=== PATIENT | female | born 1955 | race Caucasian/White ===

== ENCOUNTER 2019-04-01 12:05 | Emergency (ER) | payer OTHER, SELFPAY ==
[2019-04-01 12:14] VITALS: BP 140/76; PULSE 120; RESP 16; TEMP 37.2; O2SAT 99
--- NOTE | 2019-04-01 12:36 | ED.GENADULT ---
HPI - General Adult General Chief complaint: Upper Respiratory Infection Stated complaint: ST,bodyaches,chills Time Seen by Provider: 04/01/19 12:38 Source: patient and RN notes reviewed Mode of arrival: ambulatory Limitations: no limitations History of Present Illness HPI narrative: This is a 63 years old female presented office for evaluation of possible strep.Began last night with sore throat, and body aches. Her grandkid has strep. No treatment prior to arrival today. She smokes half a pack a day. Related Data Home Medications Medication Instructions Recorded Confirmed metformin mg 04/01/19 simvastatin mg 04/01/19 trazodone 04/01/19 Allergies Allergy/AdvReac Type Severity Reaction Status Date / Time No Known Allergies Allergy Unverified 12/11/17 11:40 Review of Systems Review of Systems: Narrative: CONSTITUTIONAL: Denies fever. Reports chills and ache EYES: Denies visual changes ENT: Reports a little sinus drainage with sore throat. Denies ears pain CARDIOVASCULAR: Denies chest pain, palpitations RESPIRATORY: Denies dyspnea, wheezing. Reports cough GASTROINTESTINAL: Denies abdominal pain, nausea, vomiting, diarrhea. GENITOURINARY: Denies urinary symptoms or discharge SKIN: Denies rash MUSCULOSKELETAL: Denies acute back pain, joint pain, or myalgia. NEUROLOGIC: Denies numbness, or focal weakness. [facility] Past Medical History Medical History (Updated 04/01/19 @ 12:51 by STAN Shin) HLD (hyperlipidemia) HTN (hypertension) Type 2 diabetes mellitus without complication Vitamin D deficiency Family History Family History Mother Family history of diabetes mellitus in first degree relative Father Family history of diabetes mellitus in first degree relative Family history of coronary artery disease Social History Social History Smoking status: Current every day smoker Alcohol intake: never Comments At time of signature, I agree with nursing past medical, surgical, social and family history. There is no relevant family history pertinent to the presenting complaint. Exam Narrative: Exam Narrative: GENERAL: This is a well-nourished, well-developed patient, in no apparent distress. EARS: External ears normal, auditory canals clear and without drainage, TMs normal without perforation. Hearing grossly intact. NOSE: External nose normal with no obvious nasal discharge, nares without redness, no rhinorrhea. THROAT: Mucous membranes moist, posterior pharynx clear. NECK: Neck supple, non-tender without lymphadenopathy, masses or thyromegaly. CARDIOVASCULAR: Regular rate and rhythm without murmurs, gallops, or rubs. RESPIRATORY: Clear to auscultation. Breath sounds equal bilaterally. No wheezes, rales, or rhonchi. GASTROINTESTINAL: Abdomen soft, non-tender, nondistended. Bowel sounds are active. No hepato-splenomegaly, or palpable masses. No guarding. SKIN: warm, intact with no suspicious lesions or rash, good texture and turgor. NEURO: awake, alert, and oriented to person, place and time. There were no obvious focal neurologic abnormalities. Steady gait Nadira Coma Scale Eye Opening: Spontaneous 4 [place] Coma Scale Motor: Obeys Commands 6 Nadira Coma Scale Verbal: Oriented 5 Course Vital Signs Vital signs: Vital Signs Temperature 99.0 F 04/01/19 12:14 Pulse Rate 120 H 04/01/19 12:14 Respiratory Rate 16 04/01/19 12:14 Blood Pressure 140/76 04/01/19 12:14 Pulse Oximetry 99 04/01/19 12:14 Temperature 99.0 F 04/01/19 12:14 Pulse Rate 120 H 04/01/19 12:14 Respiratory Rate 16 04/01/19 12:14 Blood Pressure 140/76 04/01/19 12:14 Pulse Oximetry 99 04/01/19 12:14 Medical Decision Making MDM Narrative Medical decision making narrative: Discharge instructions reviewed with patient, as well as provided in writing per nursing staff. The instr
== END 2019-04-01 12:48 | disposition home or self-care (01) ==
PROVIDERS: Emergency Provider Nurse Practitioner; PCP Physician Assistant
DX: J02.9 Acute pharyngitis, unspecified (principal); I10 Essential (primary) hypertension; E78.5 Hyperlipidemia, unspecified; E11.9 Type 2 diabetes mellitus without complications; F17.200 Nicotine dependence, unspecified, uncomplicated
CPT/HCPCS: 87081; 87880; 99213; G0463

== ENCOUNTER → 2019-04-07 14:59 | Outpatient (CLI) | payer OTHER, SELFPAY ==
--- NOTE | ~2019-04-07 | MM_ITS ---
EXAMINATION: MM screening sukh BI w sid HISTORY: Screening mammogram TECHNIQUE: Craniocaudal and mediolateral oblique 3-D tomosynthesis images were obtained and synthetic 2-D images were generated. CAD analysis was submitted and interpreted. COMPARISON: 02/02/2017, 04/11/2014 bilateral digital screening mammogram examinations BREAST PARENCHYMAL COMPOSITION: The breasts are almost entirely fatty... FINDINGS: There is no evidence of suspicious mass, calcification, or architectural distortion to sugg est malignancy in either breast. There has been no suspicious interval change. IMPRESSION: 1. No mammographic evidence of malignancy. 2. Recommend routine screening mammography in one year. BI-RADS Category 1: Negative Reviewed, dictated and finalized at location A. DRY AGENT
== END ==
PROVIDERS: PCP Physician Assistant; Visit Provider Physician Assistant
DX: Z12.31 Encounter for screening mammogram for malignant neoplasm of breast (principal)
CPT/HCPCS: 77063; 77067

== ENCOUNTER → 2019-11-23 10:47 | Outpatient (CLI) | payer OTHER, SELFPAY ==
--- NOTE | ~2019-11-23 | CT_ITS ---
EXAMINATION: CT abdomen pelvis wo/w con DATE: 11/23/2019 11:30 INDICATION: Generalized abdominal pain. Hematuria. TECHNIQUE: Computed tomography (CT) of the abdomen and pelvis was performed without and with intraven ous contrast using a total of 130 mL Omnipaque-350 intravenous contrast with a double-bolus technique for simultaneous opacification of the renal parenchyma and renal collecting system. Automated exposu re control and iterative reconstruction technique were employed. The dose-length product was 1689.91 mGy-cm. COMPARISON: CT abdomen 11/03/2017 FINDINGS: The visualized portions of the lung bases demonstrate mild atelectasis. No pleural effusion. The hear t size is normal. No pericardial effusion. There is a small sliding hiatal hernia. The liver is christine l. There are changes of cholecystectomy. The spleen, pancreas, adrenal glands, and left kidney are no rmal. There is a 5 mm cyst in right kidney. There is no urolithiasis. The ureters are well opacified and are normal. The bladder is normal. There is diverticulosis of the colon without evidence of diver ticulitis. There are no dilated loops of bowel. There are no pathologically enlarged lymph nodes. The re is a 2.2 cm mass of old fat necrosis in left abdomen. There is no free intraperitoneal fluid. Ther e is mild lumbar spondylosis. There are old healed left rib fractures. IMPRESSION: 1. No etiology for hematuria. 2. Small sliding hiatal hernia. Reviewed, dictated and finalized at location A.
[2019-11-23 11:06] LABS: Estimated Glomerular Filt Rate > 60
== END ==
PROVIDERS: PCP Physician Assistant; Visit Provider Physician Assistant
DX: R10.84 Generalized abdominal pain (principal); R31.9 Hematuria, unspecified; K44.9 Diaphragmatic hernia without obstruction or gangrene
CPT/HCPCS: 74178; Q9967

== ENCOUNTER → 2020-04-04 10:41 | Outpatient (CLI) | payer OTHER, SELFPAY ==
--- NOTE | ~2020-04-04 | CT_ITS ---
EXAMINATION:CT lung screening DATE: 04/04/2020 11:03 INDICATION: Personal history of tobacco dependence. Current smoker with 30 pack year history. TECHNIQUE: Computed tomography (CT) of the chest was performed without intravenous contrast. Automate d exposure control and iterative reconstruction technique were employed. The dose-length product (DLP ) was 123.78 mGy-cm. COMPARISON: Chest CT 03/28/2019 FINDINGS: There is mild emphysema. There is mild atelectasis in the lower lobes, right middle lobe, a nd lingula. Again seen is a 4 mm nodule in right middle lobe. No pleural effusion. The heart size is normal. There are coronary artery calcifications. No pericardial effusion. There are changes of naga cystectomy. Again seen is an 11 mm mass in left adrenal gland measuring low-attenuation, consistent w ith adenoma. There is mild thoracic spondylosis. IMPRESSION: 1. Lung-RADS category 2: Benign appearance or behavior. Continue annual screening with noncontrast lo w-dose chest CT in 12 months. Reviewed, dictated and finalized at location A. LPN CNA IMPRESSION: 1. Lung-RADS category 2: Benign appearance or behavior. Continue annual screeni ng with noncontrast low-dose chest CT in 12 months.
== END ==
PROVIDERS: PCP Physician Assistant; Visit Provider Physician Assistant
DX: F17.210 Nicotine dependence, cigarettes, uncomplicated (principal)
CPT/HCPCS: 71271

== ENCOUNTER → 2020-06-25 15:50 | Outpatient (CLI) | payer OTHER, SELFPAY ==
--- NOTE | ~2020-06-25 | MM_ITS ---
EXAMINATION: MM screening sukh BI w sid HISTORY: Screening mammogram TECHNIQUE: Craniocaudal and mediolateral oblique 3-D tomosynthesis images were obtained and synthetic 2-D images were generated. CAD analysis was submitted and interpreted. COMPARISON: 04/07/2019, 02/02/2017, 04/11/2014 bilateral digital screening mammogram examinations BREAST PARENCHYMAL COMPOSITION: The breasts are almost entirely fatty. FINDINGS: Stable approximately 6.5 mm circumscribed upper outer quadrant of right intramammary lymph node. There is no evidence of suspicious mass, calcification, or architectural distortion to suggest malignancy in either breast. There has been no suspicious interval change. IMPRESSION: 1. No mammographic evidence of malignancy. 2. Recommend routine screening mammography in one year. BI-RADS Category 2: Benign finding(s). Reviewed, dictated and finalized at location A.
== END ==
PROVIDERS: PCP Physician Assistant; Visit Provider Physician Assistant
DX: Z12.31 Encounter for screening mammogram for malignant neoplasm of breast (principal)
CPT/HCPCS: 77063; 77067

== ENCOUNTER 2020-09-14 10:12 | Emergency (ER) | payer OTHER, SELFPAY ==
--- NOTE | ~2020-09-14 | XR_ITS ---
EXAMINATION: XR chest 2V DATE: 09/14/2020 10:38 INDICATION: Productive cough TECHNIQUE: PA and lateral views of the chest are obtained. COMPARISON: 12/11/2017 FINDINGS: The lungs are free of acute opacities. There is atelectasis of the lingula. There is no ple ural effusion or pneumothorax. The cardiomediastinal silhouette is normal. There is mild thoracic spo ndylosis. Cholecystectomy clips are noted. IMPRESSION: 1. No acute cardiopulmonary abnormality. Reviewed, dictated and finalized at location A.
[2020-09-14 10:20] VITALS: BP 140/58; PULSE 119; RESP 16; TEMP 37.1; O2SAT 96
--- NOTE | 2020-09-14 10:20 | ED.URI ---
HPI - URI/Sore Throat General Chief Complaint: Upper Respiratory Infection Stated Complaint: congestion/cough Time Seen by Provider: 09/14/20 10:20 Source: patient and RN notes reviewed Mode of arrival: ambulatory Limitations: no limitations History of Present Illness HPI Narrative: 64-year-old female presents to the [facility] with complaints of cough, congestion for the last 2 to 3 days. Patient was concerned because she has hematemesis he had a family vacation on Wednesday. Patient is a smoker. Denies chest pain. Has chest wall discomfort when coughing. Related Data Home Medications Medication Instructions Recorded Confirmed metformin mg 04/01/19 simvastatin mg 04/01/19 trazodone 04/01/19 Allergies Allergy/AdvReac Type Severity Reaction Status Date / Time No Known Allergies Allergy Unverified 12/11/17 11:40 Review of Systems Review of Systems: All systems reviewed & are unremarkable except as noted in HPI and below Constitutional: Constitutional: Reports no additional constitutional complaints, Denies chills and Denies fever(s) Eyes: Eyes: Reports no additional eye complaints ENT: Reports system reviewed and no additional complaints, except as documented Cardiovascular: Cardiovascular: Reports no additional cardiovascular complaints, Denies chest pain, Denies rapid heart rate, Denies radiating jaw, neck or arm pain and Denies slow heart rate Respiratory: Respiratory: Reports as per HPI, Reports chest congestion, Reports cough and Denies dyspnea Gastrointestinal: Gastrointestinal: Reports no additional gastrointestinal complaints Musculoskeletal: Musculoskeletal: Reports no additional musculoskeletal complaints Integumentary/Breasts: Skin/Breast: Reports system reviewed and no additional complaints, except as docu, Denies erythema and Denies rash Neurologic: Reports system reviewed and no additional complaints, except as documented Psychiatric: Psychiatric: Reports no additional psychiatric complaints Allergic/Immunologic: Allergic/Immunologic: Reports no additional allergic/immunologic complaints [facility] Past Medical History Medical History HLD (hyperlipidemia) HTN (hypertension) Type 2 diabetes mellitus without complication Vitamin D deficiency Family History Family History Mother Family history of diabetes mellitus in first degree relative Father Family history of diabetes mellitus in first degree relative Family history of coronary artery disease Social History Social History Smoking status: Current every day smoker Alcohol intake: never Comments At the time of my signature, I reviewed and agree with the nursing past medical, surgical, social, and family history. There is no relevant family history pertinent to the patient complaint. Exam Const: General: no acute distress and alert Nutritional Appearance: well nourished Orientation/consciousness: patient oriented x3 Limitations: no limitations HENMT: Head: normal to inspection Ears: external ears normal, TM's normal bilaterally and EAC's normal Eyes: Conjunctivae: conjunctivae normal Pupils: Equal, round and reactive pupils present Neck: Neck: normal visual inspection, no lymphadenopathy and no meningeal signs Chest: Chest palpation & inspection: normal inspection of the chest Resp: Effort & Inspection: normal respiratory effort and no use of accessory muscles Auscultation: rhonchi left lower and diminished lung sounds on the right in the lower lung graf Cardio: Rate: regular rate Rhythm: regular rhythm GI: GI Palp: Yes Soft to palpation and No Tenderness to palpation present (GI) : General: Yes no CVA tenderness Back/Spine/Pelvis: Back: no CVA tenderness Skin: General skin exam: normal color Rashes: no rashes Wounds: no wounds Neuro: General: patient oriented x
[2020-09-16 20:19] LABS: SARS-CoV-2 RNA PCR Negative
== END 2020-09-14 11:06 | disposition home or self-care (01) ==
PROVIDERS: Emergency Provider Nurse Practitioner; PCP Physician Assistant
DX: J40 Bronchitis, not specified as acute or chronic (principal); Z20.822 Contact with and (suspected) exposure to COVID-19; E78.5 Hyperlipidemia, unspecified; I10 Essential (primary) hypertension; E11.9 Type 2 diabetes mellitus without complications
CPT/HCPCS: 71046; 99213; C9803; G0463; U0003; U0005

== ENCOUNTER → 2020-12-18 09:18 | Outpatient (CLI) | payer MEDICARE, OTHER, SELFPAY ==
--- NOTE | ~2020-12-18 | XR_ITS ---
XR shoulder LT min 2V 12/18/2020 09:31 Indication: Left shoulder pain Procedure: 4 views left shoulder Comparison: No prior studies for comparison. Findings: There is mild osteoarthritis of the left glenohumeral joint. No fracture, subluxation or di slocation. No significant soft tissue abnormality. No foreign body. Impression: 1: Mild left glenohumeral joint osteoarthritis. Reviewed, dictated and finalized at location B. Impression: 1: Mild left glenohumeral joint osteoarthritis.
== END ==
PROVIDERS: PCP Physician Assistant; Visit Provider Physician Assistant
DX: M19.012 Primary osteoarthritis, left shoulder (principal)
CPT/HCPCS: 73030

== ENCOUNTER 2021-05-11 10:05 | Emergency (ER) | payer MEDICARE, OTHER, SELFPAY ==
--- NOTE | ~2021-05-11 | XR_ITS ---
EXAMINATION: XR chest 2V DATE: 05/11/2021 10:39 INDICATION: Cough. TECHNIQUE: Frontal and lateral views of the chest were obtained. COMPARISON: Chest 2 views 09/14/2020, chest CT 04/04/2020 FINDINGS: There is mild atelectasis in lingula. No pleural effusion or pneumothorax. The heart size i s normal. Surgical clips in the right upper quadrant are likely from cholecystectomy. IMPRESSION: 1. Mild atelectasis in lingula. Reviewed, dictated and finalized at location A.
[2021-05-11 10:13] VITALS: BP 133/73; PULSE 118; RESP 16; TEMP 36.9; O2SAT 97
[2021-05-11 10:15] VITALS: PULSE 110; RESP 16; O2SAT 98
--- NOTE | 2021-05-11 10:23 | ECG_ITS ---
Measurements Intervals [place] Rate: 110 P: 65 AL: 151 QRS: 51 QRSD: 85 T: 64 QT: 316 QTc: 428 Interpretive Statements SINUS TACHYCARDIA NONSPECIFIC T-WAVE ABNORMALITY ABNORMAL RHYTHM ECG NO PREVIOUS ECG AVAILABLE FOR COMPARISON Electronically Signed On 05-11-2021 16:50:31 CDT by Ashtyn Abdalla M.D.
--- NOTE | 2021-05-11 10:31 | ED.GENADULT ---
HPI - General Adult General Chief complaint: Upper Respiratory Infection Stated complaint: uri Source: patient Mode of arrival: ambulatory Limitations: no limitations History of Present Illness HPI narrative: Patient presents for evaluation of cough for the last 3 days. Cough is primarily nonproductive. She denies any fever, chills, nausea, vomiting, diarrhea, body aches, shortness of breath. She does have some chest tightness but denies chest pain per se. She smokes 1/2 ppd. No recent sick contacts to her knowledge. She did have COVID back in March of this year despite receiving both doses of her COVID vaccination and her booster. She did receive a flu shot this year. Related Data Home Medications Medication Instructions Recorded Confirmed metformin mg 04/01/19 simvastatin mg 04/01/19 trazodone 04/01/19 Allergies Allergy/AdvReac Type Severity Reaction Status Date / Time No Known Allergies Allergy Unverified 12/11/17 11:40 Review of Systems Review of Systems: CONSTITUTIONAL: Denies fever, chills, or sweats. EYES: Denies visual changes, redness, or discharge. ENT: Reports nasal congestion. Denies rhinorrhea, sore throat, or otalgia. CARDIOVASCULAR: Reports chest tightness. Denies chest pain, palpitations, or edema. RESPIRATORY: Reports cough and chest congestion. Denies SOB GASTROINTESTINAL: Denies abdominal pain, nausea, vomiting, or diarrhea. GENITOURINARY: Denies dysuria or hematuria. SKIN: Denies rash or itching. MUSCULOSKELETAL: Denies back pain, joint pain, or myalgia. NEUROLOGIC: Denies headache, numbness, dizziness, or weakness. PSYCHIATRIC: Denies anxiety or depression. [facility] Past Medical History Medical History (Updated 05/11/21 @ 11:17 by Doni Jordan, STAN, ) HLD (hyperlipidemia) HTN (hypertension) Type 2 diabetes mellitus without complication Vitamin D deficiency Surgical History Surgical History History of cholecystectomy History of hysterectomy Family History Family History Mother Family history of diabetes mellitus in first degree relative Father Family history of diabetes mellitus in first degree relative Family history of coronary artery disease Social History Social History Smoking packs per day: 0.5 Smoking cigarettes per day: 10.0 Smoking status: Current every day smoker Alcohol intake: never Substance use: never Living arrangements: with family Gender identity (if verbalized by the patient): Female Spiritual care concerns: No Exam Narrative: GENERAL: Well-appearing, well-nourished, and in no acute distress. HEAD: Normocephalic, atraumatic. EYES: PERRLA and EOMI. ENT: Nares clear, no rhinorrhea or epistaxis. Mucous membranes moist. Oropharynx without tonsillar hypertrophy exudate or other lesions. Bilateral TMs pearly bryan nonbulging NECK: Supple. No adenopathy or masses. No carotid bruits or JVD CHEST: Rales and wheezing noted in bilateral lung graf posteriorly. HEART: Regular rate and rhythm. No murmur heard. Normal peripheral pulses. ABDOMEN: Soft, nontender, nondistended, normal active bowel sounds. EXTREMITIES: Normal range of motion. No edema. SKIN: Warm, dry, no rash. NEURO: No focal deficits. Alert and oriented x3. PSYCH: Normal mood and affect. Course Course Emergency Course: This is a 65-year-old female who presented with cough with a history of smoking and recent Covid infection. She was tachycardic on arrival. She was given a neb treatment and steroids. EKG showed sinus tachycardia. Chest x-ray with no infiltrate noted. Given tachycardia with history of smoking and recent Covid, there would be concern for PE. I cannot definitively rule this out using PERC criteria. Informed pt that it would be recommended to go to ER for further evaluation
[2021-05-11] MEDS: ALBUTEROL SULFATE NEB 2.5 MG/3 ML INH INHALATION (10:38)
[2021-05-11] MEDS: methylPREDNISolone SOD SUCC 125 MG VIAL IM (10:39)
[2021-05-11] MEDS: IPRATROPIUM BR 0.02% INH SOLN 0.5 MG/2.5 ML VIAL INHALATION (10:39)
[2021-05-11 11:15] VITALS: PULSE 122; RESP 16; O2SAT 97
== END 2021-05-11 11:15 | disposition short-term general hospital (02) ==
PROVIDERS: Emergency Provider Nurse Practitioner; PCP Physician Assistant
DX: R05.9 Cough, unspecified (principal); R00.0 Tachycardia, unspecified; F17.210 Nicotine dependence, cigarettes, uncomplicated; Z86.16 Personal history of COVID-19; E78.5 Hyperlipidemia, unspecified; I10 Essential (primary) hypertension; E11.9 Type 2 diabetes mellitus without complications
CPT/HCPCS: 71046; 87804; 93005; 94640; 96372; 99213; G0463; J2930

== ENCOUNTER 2021-05-11 11:40 | Emergency (ER) | payer MEDICARE, OTHER, SELFPAY ==
[2021-05-11 11:42] VITALS: BP 151/72; PULSE 121; RESP 14; TEMP 36.7; O2SAT 100
[2021-05-11 12:31] VITALS: RESP 18
--- NOTE | 2021-05-11 12:32 | PC.NURSE ---
Pt states she was sent by [facility] for c/o tachycardia. Pt initially presented to urgent care with c/o congestion and sinus infection. Pt denies s/s at this time.
[2021-05-11 12:46] VITALS: BP 157/68; PULSE 117; RESP 18; O2SAT 99
--- NOTE | 2021-05-11 12:55 | ED.URI ---
HPI - URI/Sore Throat General Chief Complaint: Upper Respiratory Infection Stated Complaint: cough/r/o pneumonia Time Seen by Provider: 05/11/21 12:31 Source: patient History of Present Illness HPI Narrative: Patient was referred from an urgent care for further evaluation. Patient reports has had congestion for the past couple days was concerned that might develop into pneumonia went to an urgent care. They did a chest x-ray and told her everything was clear on the chest x-ray she does have a history of smoking so they gave her albuterol and Solu-Medrol. Patient noted to be tachycardic throughout urgent care stay so she referred the ER for evaluation. Patient is understanding of the referral was there was concern for blood clots as she recently had a Covid infection and March. Patient is denying any chest pain or shortness of breath on my evaluate she denies any fevers or hemoptysis denies prior history of blood clots. Related Data Home Medications Medication Instructions Recorded Confirmed metformin mg 04/01/19 simvastatin mg 04/01/19 trazodone 04/01/19 Allergies Allergy/AdvReac Type Severity Reaction Status Date / Time No Known Allergies Allergy Unverified 12/11/17 11:40 Review of Systems Review of Systems: CONSTITUTIONAL: Denies fever, chills, or sweats. EYES: Denies visual changes, redness, or discharge. ENT: Denies sore throat, or otalgia. CARDIOVASCULAR: Denies chest pain, palpitations, or edema. RESPIRATORY: Denies dyspnea. GASTROINTESTINAL: Denies abdominal pain, nausea, vomiting, or diarrhea. GENITOURINARY: Denies dysuria or hematuria. SKIN: Denies rash or itching. MUSCULOSKELETAL: Denies back pain, joint pain, or myalgia. NEUROLOGIC: Denies headache, numbness, dizziness, or weakness. PSYCHIATRIC: Denies anxiety or depression. [facility] Past Medical History Medical History HLD (hyperlipidemia) HTN (hypertension) Type 2 diabetes mellitus without complication Vitamin D deficiency Surgical History Surgical History History of cholecystectomy History of hysterectomy Family History Family History Mother Family history of diabetes mellitus in first degree relative Father Family history of diabetes mellitus in first degree relative Family history of coronary artery disease Social History Social History Smoking packs per day: 0.5 Smoking cigarettes per day: 10.0 Smoking status: Current every day smoker Alcohol intake: never Substance use: never Gender identity (if verbalized by the patient): Female Spiritual care concerns: No Exam Narrative: GENERAL: Well-appearing, well-nourished, and in no acute distress. HEAD: Normocephalic, atraumatic. EYES: PERRLA and EOMI. ENT: Nares clear, no rhinorrhea or epistaxis. Mucous membranes moist. NECK: Supple. No masses. No JVD CHEST: Clear to auscultation. No respiratory distress. No wheezes rales or rhonchi HEART: Regular tachycardia. No murmur heard. Normal peripheral pulses. ABDOMEN: Soft, nontender, nondistended, normal active bowel sounds. EXTREMITIES: Normal range of motion. No edema. SKIN: Warm, dry, no rash. NEURO: No focal deficits. Alert and oriented x3. PSYCH: Normal mood and affect. Course Reevaluation(s) Reevaluation #1: Patient is resting comfortably results and plan reviewed with patient. Patient is comfortable outpatient plan. Date: 05/11/21 Time: 13:57 Vital Signs Vital signs: Vital Signs Temperature 36.7 C 05/11/21 11:42 Pulse Rate 121 H 05/11/21 11:42 Respiratory Rate 14 05/11/21 11:42 Blood Pressure 151/72 H 05/11/21 11:42 Pulse Oximetry 100 05/11/21 11:42 Temperature 36.7 C 05/11/21 11:42 Pulse Rate 114 H 05/11/21 14:11 Respiratory Rate 18 05/11/21 14:11 Blood Press
[2021-05-11 13:02] LABS: Basophils Absolute Auto 0.1 K/mm3 (0.0-0.1); Basophils Percent Auto 0.7 % (0.2-1.2); Eosinophils Absolute Auto 0.1 K/mm3 (0-0.3); Eosinophils Percent Auto 1.2 % (0-4.4); Hematocrit 46.1 % (37.0-47.0); Hemoglobin 14.5 g/dL (12.0-15.0); Immature Granulocyte Absolute 0.02 K/mm3 (0.00-0.031); Immature Granulocyte Percent A 0.3 % (0-0.5); Lymphocytes Absolute Auto 0.83 K/mm3 (0.9-3.2); Lymphocytes Percent Auto 11.1 % (18.3-44.2); Mean Corpuscular HGB Conc 31.5 g/dl (32-36); Mean Corpuscular Hemoglobin 28.7 pg (26-34); Mean Corpuscular Volume 91.3 fl (80-100); Mean Platelet Volume 10.5 fl (7.4-10.4); Monocytes Absolute Auto 0.2 K/mm3 (0.1-0.6); Monocytes Percent Auto 2.5 % (2.6-8.5); Neutrophils Absolute Auto 6.3 K/mm3 (1.3-6.7); Neutrophils Percent Auto 84.2 % (45.5-73.1); Platelet Count Result 208 k/mm3 (150-375); Red Blood Count 5.05 M/mm3 (4.2-5.4); Red Cell Distribution Width 14.2 % (11.5-14.5); White Blood Count 7.5 K/mm3 (4.5-10.0)
[2021-05-11 13:15] LABS: Alanine Aminotransferase 18 U/L (4-35); Albumin Level 4.5 g/dL (3.5-5.1); Alkaline Phosphatase 120 U/L (38-126); Anion Gap 7 mmol/L (8-16); Aspartate Amino Transferase 22 U/L (14-36); Bilirubin,Total 0.4 mg/dL (0.2-1.3); Blood Urea Nitrogen 9 mg/dL (7-17); Calcium 9.4 mg/dL (8.4-10.2); Carbon Dioxide 26 mmol/L (22-30); Chloride 107 mmol/L (98-107); Estimated Glomerular Filt Rate > 60; Glucose 139 mg/dL (65-110); Potassium 4.1 mmol/L (3.4-5.0); Sodium 140 mmol/L (137-145)
[2021-05-11 13:21] LABS: D Dimer < 0.27 ug/mL (<0.48)
[2021-05-11 13:31] VITALS: BP 157/75; PULSE 116; RESP 18; O2SAT 94
[2021-05-11 14:04] VITALS: BP 138/86; PULSE 114; RESP 18; O2SAT 99
[2021-05-11 14:11] VITALS: PULSE 114; RESP 18; O2SAT 98
== END 2021-05-11 14:11 | disposition home or self-care (01) ==
PROVIDERS: Emergency Provider Emergency Medicine; PCP Physician Assistant
DX: R09.81 Nasal congestion (principal); Z79.84 Long term (current) use of oral hypoglycemic drugs; E78.5 Hyperlipidemia, unspecified; I10 Essential (primary) hypertension; E11.9 Type 2 diabetes mellitus without complications; E55.9 Vitamin D deficiency, unspecified; F17.210 Nicotine dependence, cigarettes, uncomplicated
CPT/HCPCS: 36415; 71046; 80053; 85025; 85380; 87804; 93005; 94640; 96372; 99283; J2930

== ENCOUNTER → 2021-06-23 11:30 | Outpatient (CLI) | payer MEDICARE, OTHER, SELFPAY ==
--- NOTE | ~2021-06-23 | CT_ITS ---
EXAMINATION: CT lung screening DATE: 06/23/2021 11:44 INDICATION: Cigerette smoker . Lung cancer screening. TECHNIQUE: Computed tomography (CT) of the chest was performed without intravenous contrast. Addition al 3D reconstructions utilizing coronal maximum intensity projection (MIP) were performed. Automated exposure control and iterative reconstruction technique were employed. The dose-length product was 13 4.91 mGy-cm. COMPARISON: None FINDINGS: No interval change in a 3 mm right middle lobe nodule and a couple 2 mm nodules in the left lower lob e. No new or enlarging pulmonary nodules identified. Mild discoid atelectasis in the right middle lob e and lingula. No pneumonia, pulmonary edema or pleural effusion. Heart size is normal. No pericardia l effusion. Thoracic aorta is normal in caliber. No pathologically enlarged thoracic lymphadenopathy. Cholecystectomy clips the gallbladder fossa. Mild thoracic spondylosis. IMPRESSION: 1. Lung-RADS category 2: Benign appearance or behavior. Continue annual screening with noncontrast lo w-dose chest CT in 12 months. Reviewed, dictated and finalized at location B. IMPRESSION: 1. Lung-RADS category 2: Benign appearance or behavior. Continue annual screeni ng with noncontrast low-dose chest CT in 12 months.
== END ==
PROVIDERS: PCP Physician Assistant; Visit Provider Physician Assistant
DX: F17.210 Nicotine dependence, cigarettes, uncomplicated (principal)
CPT/HCPCS: 71271

== ENCOUNTER → 2021-08-13 12:37 | Outpatient (CLI) | payer MEDICARE, OTHER, SELFPAY ==
--- NOTE | ~2021-08-13 | MM_ITS ---
EXAMINATION: MM screening sukh BI w sid HISTORY: Screening TECHNIQUE: Craniocaudal and mediolateral oblique 3-D tomosynthesis images were obtained and synthetic 2-D images were generated. CAD analysis was submitted and interpreted. COMPARISON: Comparison to multiple prior studies sequentially, with oldest reviewed study dated 04/11. BREAST PARENCHYMAL COMPOSITION: There are scattered areas of fibroglandular density. FINDINGS: There is no evidence of suspicious mass, calcification, or architectural distortion to sugg est malignancy in either breast. There has been no suspicious interval change. IMPRESSION: 1. No mammographic evidence of malignancy. 2. Recommend routine screening mammography in one year. BI-RADS Category 1: Negative Reviewed, dictated and finalized at location D.
== END ==
PROVIDERS: PCP Physician Assistant; Visit Provider Physician Assistant
DX: Z12.31 Encounter for screening mammogram for malignant neoplasm of breast (principal)
CPT/HCPCS: 77063; 77067

== ENCOUNTER 2021-12-20 10:55 | Emergency (ER) | payer MEDICARE, SELFPAY ==
[2021-12-20 11:22] VITALS: BP 136/77; PULSE 100; RESP 16; TEMP 36.9; O2SAT 99
--- NOTE | 2021-12-20 12:30 | ED.GENADULT ---
HPI - General Adult General Chief complaint: Upper Respiratory Infection Stated complaint: cough/sore throat Time Seen by Provider: 12/20/21 12:30 Source: patient Mode of arrival: ambulatory Limitations: no limitations History of Present Illness HPI narrative: 65-year-old female patient presents to the [facility] with complaints of a sore throat and a cough that started yesterday. Patient states her grandson did test positive for strep and she has been around him as well as drinking after him recently. Patient denies any fevers, body aches or chills. Patient states that she has not yet gotten her flu vaccine this year but is fully vaccinated against COVID. Denies any chest pain, shortness of breath. Denies any abdominal pain, nausea, vomiting or diarrhea. Related Data Home Medications Medication Instructions Recorded Confirmed metformin 1,000 mg tablet mg 04/01/19 simvastatin 40 mg tablet mg 04/01/19 trazodone 50 mg tablet 04/01/19 Allergies Allergy/AdvReac Type Severity Reaction Status Date / Time No Known Allergies Allergy Verified 12/20/21 11:25 Review of Systems Review of Systems: CONSTITUTIONAL: Denies fever, chills, or sweats. EYES: Denies visual changes, redness, or discharge. ENT: Denies rhinorrhea, congestion, sore throat, or otalgia. CARDIOVASCULAR: Denies chest pain, palpitations, or edema. RESPIRATORY: Denies cough or dyspnea. GASTROINTESTINAL: Denies abdominal pain, nausea, vomiting, or diarrhea. GENITOURINARY: Denies dysuria or hematuria. SKIN: Denies rash or itching. MUSCULOSKELETAL: Denies back pain, joint pain, or myalgia. NEUROLOGIC: Denies headache, numbness, or weakness. PSYCHIATRIC: Denies anxiety or depression. [facility] Past Medical History Medical History HLD (hyperlipidemia) HTN (hypertension) Type 2 diabetes mellitus without complication Vitamin D deficiency Surgical History Surgical History History of cholecystectomy History of hysterectomy Family History Family History Mother Family history of diabetes mellitus in first degree relative Father Family history of diabetes mellitus in first degree relative Family history of coronary artery disease Social History Social History Smoking packs per day: 0.5 Smoking cigarettes per day: 10.0 Smoking status: Current every day smoker Alcohol intake: never Substance use: never Gender identity (if verbalized by the patient): Female Spiritual care concerns: No Comments At the time of my signature I agree with nursing past medical history, surgical, social, and family history. There is no relevant family history pertinent to the presenting complaint. Exam Narrative: GENERAL: Well-appearing, well-nourished, and in no acute distress. HEAD: Normocephalic, atraumatic. EYES: PERRLA and EOMI. ENT: Nares with erythema and edema noted bilaterally, no rhinorrhea or epistaxis. Mucous membranes moist. Posterior pharynx with no erythema, tonsillar lodgment, exudates or lesions present. Bilateral TMs are clear with no erythema or foreign bodies to the canal. NECK: Supple. No lymphadenopathy CHEST: Clear to auscultation. No respiratory distress. HEART: Regular rate and rhythm. No murmur heard. Normal peripheral pulses. ABDOMEN: Soft, nontender, nondistended, normal active bowel sounds. EXTREMITIES: Normal range of motion. No edema. SKIN: Warm, dry, no rash. NEURO: No focal deficits. Alert and oriented x3. Course Course Level of Care: Express Care Visit Reevaluation(s) Reevaluation #1: Reevaluated patient notify her that she is negative today for COVID and strep and flu. Discussed with patient that she can use [id number] medications to help with her symptoms as well as warm salt water gargles and hot te
--- NOTE | 2021-12-20 12:48 | PC.NURSE ---
at 1220 was updated on xpc status.
== END 2021-12-20 13:07 | disposition home or self-care (01) ==
PROVIDERS: Emergency Provider Nurse Practitioner Family; PCP Physician Assistant
DX: J02.8 Acute pharyngitis due to other specified organisms (principal); Z20.822 Contact with and (suspected) exposure to COVID-19; F17.210 Nicotine dependence, cigarettes, uncomplicated; E78.5 Hyperlipidemia, unspecified; I10 Essential (primary) hypertension; E11.9 Type 2 diabetes mellitus without complications
CPT/HCPCS: 87081; 87426; 87804; 87880; 99213; C9803; G0463

== ENCOUNTER 2022-03-01 09:08 | Emergency (ER) | payer MEDICARE, SELFPAY ==
--- NOTE | 2022-03-01 09:11 | ED.URI ---
HPI - URI/Sore Throat General Chief Complaint: Upper Respiratory Infection Stated Complaint: COVID + Time Seen by Provider: 03/01/22 09:19 Source: patient, RN notes reviewed and old records reviewed Mode of arrival: ambulatory Limitations: no limitations History of Present Illness HPI Narrative: 66-year-old female presents to the [facility] wanting treatment for COVID-19, tested positive yesterday. Patient reports cough, congestion. Has taken Tylenol and Coricidin. Denies fevers, chest pain, abdominal pain. No nausea vomiting or diarrhea. Requesting Paxlovid. Patient states that her tested positive on last , summer, for COVID-19. Related Data Home Medications Medication Instructions Recorded Confirmed metformin 1,000 mg tablet 1,000 mg PO DIRECTED 04/01/19 03/01/22 simvastatin 40 mg tablet 40 mg PO DAILY 04/01/19 03/01/22 trazodone 50 mg tablet 50 mg PO DAILY 04/01/19 03/01/22 Allergies Allergy/AdvReac Type Severity Reaction Status Date / Time No Known Allergies Allergy Verified 03/01/22 09:23 Review of Systems Review of Systems: All systems reviewed & are unremarkable except as noted in HPI and below Constitutional: Constitutional: Reports as per HPI and Reports body ache(s) ENT: Reports as per HPI and Reports nasal congestion Cardiovascular: Cardiovascular: Reports no additional cardiovascular complaints, Denies chest pain and Denies dyspnea Respiratory: Respiratory: Reports as per HPI, Denies chest congestion, Reports cough, Denies dyspnea and Denies wheezing Gastrointestinal: Gastrointestinal: Reports no additional gastrointestinal complaints, Denies abdominal pain, Denies nausea and Denies vomiting Musculoskeletal: Musculoskeletal: Reports no additional musculoskeletal complaints Integumentary/Breasts: Skin/Breast: Reports system reviewed and no additional complaints, except as docu Neurologic: Reports system reviewed and no additional complaints, except as documented Psychiatric: Psychiatric: Reports no additional psychiatric complaints Allergic/Immunologic: Allergic/Immunologic: Reports no additional allergic/immunologic complaints PMFSH Past Medical History Medical History HLD (hyperlipidemia) HTN (hypertension) Type 2 diabetes mellitus without complication Vitamin D deficiency Surgical History Surgical History History of cholecystectomy History of hysterectomy Family History Family History Mother Family history of diabetes mellitus in first degree relative Father Family history of diabetes mellitus in first degree relative Family history of coronary artery disease Social History Social History Smoking packs per day: 0.5 Smoking cigarettes per day: 10.0 Smoking status: Current every day smoker Alcohol intake: never Substance use: never Gender identity (if verbalized by the patient): Female Spiritual care concerns: No Comments At the time of my signature, I reviewed and agree with the nursing past medical, surgical, social, and family history. There is no relevant family history pertinent to the patient complaint. Exam Const: General: cooperative, healthy appearing, comfortable, no acute distress, well developed, alert and well nourished Nutritional Appearance: well nourished Orientation/consciousness: patient oriented x3 Limitations: no limitations HENMT: Head: normal to inspection Ears: hearing grossly normal bilaterally and external ears normal Face/Nose/Sinus: Normal external nose present, Normal nares present, Normal nasal mucous membranes and turbinates present and normal facial exam Face and sinus: normal facial exam Mouth: Yes Normal oral and palatal mucosa present, Yes lip normal and Yes moist mucous membrane
[2022-03-01 09:19] VITALS: BP 142/81; PULSE 119; RESP 16; TEMP 36.9; O2SAT 96
[2022-03-01 09:29] VITALS: BP 142/81; PULSE 119; RESP 16; TEMP 36.9; O2SAT 96
== END 2022-03-01 09:58 | disposition home or self-care (01) ==
PROVIDERS: Emergency Provider Nurse Practitioner; PCP Physician Assistant
DX: U07.1 COVID-19 (principal); F17.210 Nicotine dependence, cigarettes, uncomplicated; E78.5 Hyperlipidemia, unspecified; I10 Essential (primary) hypertension; E11.9 Type 2 diabetes mellitus without complications; Z79.84 Long term (current) use of oral hypoglycemic drugs
CPT/HCPCS: 87426; 99213; C9803; G0463

== ENCOUNTER 2022-07-27 10:10 | Emergency (ER) | payer MEDICARE, OTHER, SELFPAY ==
--- NOTE | ~2022-07-27 | XR_ITS ---
EXAMINATION: XR chest 2V DATE: 07/27/2022 10:39 INDICATION: Cough. TECHNIQUE: Frontal and lateral views of the chest were obtained. COMPARISON: Chest 2 views 05/11/2021, chest CT 06/23/2021 FINDINGS: There is mild atelectasis in the lower lung zones. No pleural effusion or pneumothorax. The heart size is normal. Surgical clips in the right upper quadrant are likely from cholecystectomy. IMPRESSION: 1. Mild atelectasis in the lower lung zones. Reviewed, dictated and finalized at location A.
[2022-07-27 10:18] VITALS: BP 150/84; PULSE 110; RESP 12; TEMP 36.6; O2SAT 97
--- NOTE | 2022-07-27 10:19 | ED.URI ---
HPI - URI/Sore Throat General Chief Complaint: Upper Respiratory Infection Stated Complaint: Sinus/Cough Time Seen by Provider: 07/27/22 10:26 Source: patient and RN notes reviewed Mode of arrival: ambulatory Limitations: no limitations History of Present Illness HPI Narrative: 66-year-old female with history diabetes and hypertension presents for complaint of sinus congestion and drainage, with productive cough of yellow sputum, for 3 days. Reports a 'rattle' in chest and rib pain with coughing. Using Astepro nasal spray for symptoms. Denies sob, wheezing, n/v/d/f/c. smokes 1/2ppd. Has taken 3 negative covid tests at home since onset. Denies sick contacts. MD elicited complaint: cough Related Data Home Medications Medication Instructions Recorded Confirmed metformin 1,000 mg tablet 1,000 mg PO DIRECTED 04/01/19 07/27/22 trazodone 50 mg tablet 50 mg PO DAILY 04/01/19 07/27/22 losartan 50 mg tablet mg 07/27/22 07/27/22 rosuvastatin 20 mg tablet mg 07/27/22 Allergies Allergy/AdvReac Type Severity Reaction Status Date / Time No Known Allergies Allergy Verified 07/27/22 10:19 Review of Systems Review of Systems: CONSTITUTIONAL: Denies malaise, chills, sweats, fever EYES: Denies visual changes, redness, or discharge ENT: Reports rhinorrhea, congestion, denies sinus pain, otalgia, sore throat CARDIOVASCULAR: Denies chest pain, palpitations, edema RESPIRATORY: Reports cough, post nasal drainage. Denies dyspnea GASTROINTESTINAL: Denies abdominal pain, nausea, vomiting, diarrhea SKIN: Denies rash or itching MUSCULOSKELETAL: Denies myalgia NEUROLOGIC: Denies headache [facility] Past Medical History Medical History HLD (hyperlipidemia) HTN (hypertension) Type 2 diabetes mellitus without complication Vitamin D deficiency Surgical History Surgical History History of cholecystectomy History of hysterectomy Family History Family History Mother Family history of diabetes mellitus in first degree relative Father Family history of diabetes mellitus in first degree relative Family history of coronary artery disease Social History Social History Smoking packs per day: 0.5 Smoking cigarettes per day: 10.0 Smoking status: Current every day smoker Alcohol intake: never Substance use: never Living arrangements: with family Gender identity (if verbalized by the patient): Female Spiritual care concerns: No Exam Narrative: GENERAL: Mildly ill-appearing, nontoxic no acute distress. HEAD: Normocephalic EYES: PERRLA, conjunctivae clear ENT: Mucous membranes moist. TMs pearly bryan with dull light reflex bilaterally; no tragal tenderness. Oropharynx erythematous without lesions or exudate, no drooling, no hoarseness, no trismus, uvula midline. NECK: Supple. No lymphadenopathy CHEST: Right lung graf with mild rhonchi. No respiratory distress, speaks in full sentences. HEART: Regular rate and rhythm. No murmur heard. SKIN: Warm, dry, no rash. NEURO: Alert and oriented x3. PSYCH: Normal mood and affect Course Course Emergency Course: Patient is aware of diagnosis, understands and agrees to treatment plan. Anticipatory guidance given. Patient agrees to follow-up as directed and is aware of reasons to seek care at the emergency department. Portions of this record may have been created with voice recognition software Level of Care: Express Care Visit Vital Signs Vital signs: Vital Signs Temperature 97.8 F 07/27/22 10:18 Pulse Rate 110 H 07/27/22 10:18 Respiratory Rate 12 07/27/22 10:18 Blood Pressure 150/84 H 07/27/22 10:18 Pulse Oximetry 97 07/27/22 10:18 Oxygen Delivery Room Air 07/27/22 10:18 Temperature 97.8 F 07/27/22 10:21 Pul
[2022-07-27 10:21] VITALS: BP 150/84; PULSE 110; RESP 12; TEMP 36.6; O2SAT 97
== END 2022-07-27 10:56 | disposition home or self-care (01) ==
PROVIDERS: Emergency Provider Nurse Practitioner Family; PCP Physician Assistant
DX: J40 Bronchitis, not specified as acute or chronic (principal); E78.5 Hyperlipidemia, unspecified; I10 Essential (primary) hypertension; E11.9 Type 2 diabetes mellitus without complications; F17.210 Nicotine dependence, cigarettes, uncomplicated; Z79.84 Long term (current) use of oral hypoglycemic drugs
CPT/HCPCS: 71046; 99213; G0463

== ENCOUNTER → 2022-10-16 11:15 | Outpatient (CLI) | payer MEDICARE, SELFPAY ==
--- NOTE | ~2022-10-16 | CT_ITS ---
EXAMINATION: CT lung screening DATE: 10/16/2022 11:26 INDICATION: Personal history of nicotine dependence, current smoker with 20 pack year history TECHNIQUE: Computed tomography (CT) of the chest was performed without intravenous contrast. The dose -length product (DLP) was 148.25 mGy-cm. Automated exposure control and iterative reconstruction tech [employer] were employed. COMPARISON: 06/23/2021 FINDINGS: There are scattered stable pulmonary nodules, the largest of which measures 3 mm in the rig ht middle lobe. There is mild atelectasis of the lingula and right middle lobe. There is mild emphyse ma. No pathologically enlarged thoracic lymph nodes are identified. The heart size is normal. Calcifi ed coronary artery atherosclerosis is noted. There are changes of cholecystectomy. There is mild thor acic spondylosis. IMPRESSION: 1. Lung-RADS category 2: Benign appearance or behavior. Continue annual screening with noncontrast lo w-dose chest CT in 12 months. Reviewed, dictated and finalized at location B. IMPRESSION: 1. Lung-RADS category 2: Benign appearance or behavior. Continue annual screeni ng with noncontrast low-dose chest CT in 12 months.
== END ==
PROVIDERS: PCP Physician Assistant; Visit Provider Physician Assistant
DX: Z12.2 Encounter for screening for malignant neoplasm of respiratory organs (principal); F17.210 Nicotine dependence, cigarettes, uncomplicated
CPT/HCPCS: 71271

== ENCOUNTER → 2023-01-14 15:03 | Outpatient (CLI) | payer MEDICARE, SELFPAY ==
--- NOTE | ~2023-01-14 | XR_ITS ---
EXAMINATION: XR chest 2V DATE: 01/14/2023 15:27 INDICATION: Acute cough TECHNIQUE: PA and lateral views of the chest were obtained. COMPARISON: Chest radiograph dated 08/04/[address] dated 10/16/2022 FINDINGS: Chronic mild linear discoid atelectasis/scarring at the lingula. Additional chronic mild atelectasis/ scarring in the medial right middle lobe along side a small pericardial fat pad which is better appre ciated on prior CT. No new airspace opacities, pulmonary edema, pleural effusion or pneumothorax. Hea rt size is normal. Cholecystectomy clips in right upper quadrant. chronic mild anterior wedging at T7 . IMPRESSION: 1. Unchanged mild atelectasis/scarring at the lingula and right middle lobe. No acute cardiopulmonary disease. Reviewed, dictated and finalized at location A. 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
== END ==
PROVIDERS: PCP Physician Assistant; Visit Provider Physician Assistant
DX: R05.1 Acute cough (principal); R91.8 Other nonspecific abnormal finding of lung field
CPT/HCPCS: 71046

== ENCOUNTER 2023-06-30 13:36 | Outpatient (CLI) | payer MEDICARE, SELFPAY ==
--- NOTE | ~2023-06-30 | MM_ITS ---
EXAMINATION: MM screening sukh BI w sid HISTORY: Screening TECHNIQUE: Craniocaudal and mediolateral oblique 3-D tomosynthesis images were obtained and synthetic 2-D images were generated. CAD analysis was submitted and interpreted. COMPARISON: Comparison to multiple prior studies sequentially, with oldest reviewed study dated 04/11. BREAST PARENCHYMAL COMPOSITION: There are scattered areas of fibroglandular density. FINDINGS: There is no evidence of suspicious mass, calcification, or architectural distortion to sugg est malignancy in either breast. There has been no suspicious interval change. IMPRESSION: 1. No mammographic evidence of malignancy. 2. Recommend routine screening mammography in one year. BI-RADS Category 1: Negative Reviewed, dictated and finalized at location B.
== END 2023-06-30 13:37 ==
PROVIDERS: PCP Physician Assistant; Visit Provider Physician Assistant
DX: Z12.31 Encounter for screening mammogram for malignant neoplasm of breast (principal)
CPT/HCPCS: 77063; 77067

== ENCOUNTER 2023-06-30 15:41 | Outpatient (CLI) | payer MEDICARE, SELFPAY ==
--- NOTE | ~2023-06-30 | XR_ITS ---
XR knee RT 3V DATE: 06/30/2023 15:54 INDICATION: Pain and swelling TECHNIQUE: AP, lateral, sunrise views COMPARISON: None FINDINGS: There is mild periventricular spurring of the patella. There is enthesopathy at the quadric eps tendon insertion at the superior pole of the patella. No fracture or dislocation, periosteal reaction or bone destruction. Joint spaces appear well-preserv ed. No radiopaque in particular his biomedical stenosis. IMPRESSION: Mild patellofemoral osteoarthritis Reviewed, dictated and finalized at location A.
== END 2023-06-30 15:42 ==
LOC: MICIMG 15:42
PROVIDERS: PCP Physician Assistant; Visit Provider Physician Assistant
DX: M25.461 Effusion, right knee (principal); M17.11 Unilateral primary osteoarthritis, right knee
CPT/HCPCS: 73562

== ENCOUNTER 2023-08-09 13:06 | Emergency (ER) | payer MEDICARE, SELFPAY ==
--- NOTE | 2023-08-09 13:11 | ED.URI ---
HPI - URI/Sore Throat General Chief Complaint: Upper Respiratory Infection Stated Complaint: sore throat Time Seen by Provider: 08/09/23 13:35 Source: patient and RN notes reviewed Mode of arrival: ambulatory Limitations: no limitations History of Present Illness HPI Narrative: 67-year-old female presents concern for sore throat that started today. Reports she thought she saw white spots on her throat. She denies fever, body aches, chills, sweats. She reports she took 2 Tylenol MD elicited complaint: sore throat Related Data Home Medications Medication Instructions Recorded Confirmed metformin 1,000 mg tablet 1,000 mg PO DIRECTED 04/01/19 08/09/23 trazodone 50 mg tablet 50 mg PO DAILY 04/01/19 08/09/23 losartan 50 mg tablet 50 mg PO DAILY 07/27/22 08/09/23 rosuvastatin 20 mg tablet 20 mg PO DAILY 07/27/22 08/09/23 Allergies Allergy/AdvReac Type Severity Reaction Status Date / Time No Known Allergies Allergy Verified 07/27/22 10:19 Review of Systems Review of Systems: CONSTITUTIONAL: Denies malaise, chills, sweats, or fever. EYES: Denies visual changes, redness, or discharge. ENT: Reports sore throat. CARDIOVASCULAR: Denies chest pain, palpitations, or edema. RESPIRATORY: Denies cough. Denies dyspnea. GASTROINTESTINAL: Denies abdominal pain, nausea, vomiting, diarrhea SKIN: Denies rash or itching. MUSCULOSKELETAL: Denies myalgia. NEUROLOGIC: Denies headache. All systems reviewed & are unremarkable except as noted in HPI and below PMFSH Past Medical History Medical History HLD (hyperlipidemia) HTN (hypertension) Type 2 diabetes mellitus without complication Vitamin D deficiency Surgical History Surgical History History of cholecystectomy History of hysterectomy Family History Family History Mother Family history of diabetes mellitus in first degree relative Father Family history of diabetes mellitus in first degree relative Family history of coronary artery disease Social History Social History Smoking packs per day: 0.5 Smoking cigarettes per day: 10.0 Smoking status: Current every day smoker Alcohol intake: never Substance use: never Living arrangements: with family Gender identity (if verbalized by the patient): Female Spiritual care concerns: No Comments At time of signature, agree with nursing past medical, surgical, social and family history. There is no relevant family history pertinent to the presenting complaint Exam Narrative: GENERAL: Well-appearing, well-nourished, and in no acute distress. HEAD: Normocephalic EYES: PERRLA, conjunctivae clear ENT: Nares clear, turbinates edematous and erythematous, clear discharge. Mucous membranes moist. TM pearly bryan with dull light reflex bilaterally; no tragal tenderness. Oropharynx erythematous without lesions. Tonsils not enlarged and without exudate, no drooling, no hoarseness, no trismus, uvula midline. NECK: Supple. No lymphadenopathy CHEST: Clear to auscultation, breath sounds equal. No wheezing, rhonchi, rales, or stridor. No respiratory distress, speaks in full sentences. HEART: Regular rate and rhythm. No murmur heard. SKIN: Warm, dry, no rash. NEURO: Alert and oriented x3. PSYCH: Normal mood and affect Course Course Emergency Course: Patient is aware of diagnosis, understands and agrees to treatment plan. Anticipatory guidance given. Patient agrees to follow-up as directed and is aware of reasons to seek care at the emergency department. Portions of this record may have been created with voice recognition software Level of Care: Express Care Visit Vital Signs Vital signs: Vital Signs Temperature 98.1 F 08/09/23 13:30 Pulse Rate 104 H 08/09/23 13:30 Respiratory Rate 18
[2023-08-09 13:30] VITALS: BP 122/70; PULSE 104; RESP 18; TEMP 36.7; O2SAT 98
== END 2023-08-09 13:50 | disposition home or self-care (01) ==
PROVIDERS: Emergency Provider Nurse Practitioner; PCP Physician Assistant
DX: J06.9 Acute upper respiratory infection, unspecified (principal); F17.210 Nicotine dependence, cigarettes, uncomplicated; E78.5 Hyperlipidemia, unspecified; I10 Essential (primary) hypertension; E11.9 Type 2 diabetes mellitus without complications; Z79.84 Long term (current) use of oral hypoglycemic drugs
CPT/HCPCS: 87081; 87880; 99213; G0463

== ENCOUNTER 2023-11-08 11:07 | Outpatient (CLI) | payer MEDICARE, SELFPAY ==
--- NOTE | ~2023-11-08 | CT_ITS ---
CT Scan of the Chest without Contrast: Clinical Indication: Lung cancer screening, nicotine dependence Technique: Contiguous sections were acquired throughout the chest without intravenous contrast. Dose reduction technique was used on this scan by utilizing automated exposure control and iterative recon struction technique. The dose-length product (DLP) was 111.91 mGy-cm. COMPARISON: 10/16/2022 Findings: There is no evidence of any significant mediastinal, hilar or axillary lymphadenopathy. The mediastin al soft tissues appear normal. There is no evidence of pleural or pericardial effusion. There is probable chronic scarring or atelectasis at the lingula and right middle lobe. Stable 3 mm r ight middle lobe pulmonary nodule. Images through the upper abdomen reveal no abnormalities. Impression: Lung RADS 2: Benign appearance. 12 month follow-up screening CT advised. Reviewed, dictated and finalized at location . Impression: Lung RADS 2: Benign appearance. 12 month follow-up screening CT advised.
== END 2023-11-08 11:08 | disposition home or self-care (01) ==
PROVIDERS: PCP Physician Assistant; Visit Provider Physician Assistant
DX: F17.210 Nicotine dependence, cigarettes, uncomplicated (principal)
CPT/HCPCS: 71271

== ENCOUNTER 2024-02-01 12:47 | Emergency (ER) | payer MEDICARE, SELFPAY ==
--- NOTE | ~2024-02-01 | XR_ITS ---
EXAMINATION: XR finger 1st RT min 2V DATE: 02/01/2024 13:06 INDICATION: Pain at the distal right thumb post injury TECHNIQUE: Dorsal palmar, lateral and 2 oblique views of the right first digit were obtained COMPARISON: None FINDINGS: Nondisplaced transverse extra articular fracture across the proximal metadiaphyseal region of the rig ht first distal phalanx. No other fractures identified. 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 IMPRESSION: 1. Nondisplaced extra articular fracture extending across the right first distal phalanx. Reviewed, dictated and finalized at location A. EMS TRAINER IMPRESSION: 1. Nondisplaced extra articular fracture extending across the right first dista l phalanx.
--- NOTE | 2024-02-01 12:52 | ED.UPPEXIN ---
HPI - Extremity Injury (Upper) General Chief Complaint: Extremity Injury, Upper Stated Complaint: Thumb Pain Right Hand Time Seen by Provider: 02/01/24 12:50 Source: patient Mode of arrival: ambulatory Limitations: no limitations History of Present Illness HPI narrative: Patient is a 60-year-old female who presents with right thumb pain after hitting it on railing yesterday. Patient reports bruising, swelling and tenderness with movement. Patient bought a splint yesterday and has been wearing. Related Data Home Medications Medication Instructions Recorded Confirmed metformin 1,000 mg tablet 1,000 mg PO DIRECTED 04/01/19 02/01/24 trazodone 50 mg tablet 50 mg PO DAILY 04/01/19 02/01/24 losartan 50 mg tablet 50 mg PO DAILY 07/27/22 02/01/24 rosuvastatin 20 mg tablet 20 mg PO DAILY 07/27/22 02/01/24 Allergies Allergy/AdvReac Type Severity Reaction Status Date / Time No Known Allergies Allergy Verified 02/01/24 13:12 Review of Systems Review of Systems: All systems reviewed & are unremarkable except as noted in HPI and below Constitutional: Constitutional: Denies body ache(s), Denies chills, Denies fatigue, Denies fever(s), Denies headache(s), Denies malaise and Denies weakness Eyes: Eyes: Denies blurry vision, Denies irritation and Denies loss of vision ENT: Denies otalgia, Denies headache(s), Denies nasal discharge, Denies sinus pain and Denies sore throat Cardiovascular: Cardiovascular: Denies chest pain, Denies irregular heart rhythm and Denies dyspnea Respiratory: Respiratory: Denies dyspnea Gastrointestinal: Gastrointestinal: Denies abdominal pain, Denies melena, Denies hematochezia, Denies diarrhea, Denies nausea and Denies vomiting Musculoskeletal: Musculoskeletal: Denies back pain, Denies myalgias, Reports arthralgias and Reports joint swelling Integumentary/Breasts: Skin/Breast: Denies pruritus and Denies rash Neurologic: Denies headache(s), Denies loss of vision and Denies weakness Psychiatric: Psychiatric: Reports no additional psychiatric complaints Endocrine: Endocrine: Denies fatigue PMFSH Past Medical History Medical History HLD (hyperlipidemia) HTN (hypertension) Type 2 diabetes mellitus without complication Vitamin D deficiency Surgical History Surgical History History of cholecystectomy History of hysterectomy Family History Family History Mother Family history of diabetes mellitus in first degree relative Father Family history of diabetes mellitus in first degree relative Family history of coronary artery disease Social History Social History Smoking packs per day: 0.5 Smoking cigarettes per day: 10.0 Smoking status: Current every day smoker Alcohol intake: never Substance use: never Living arrangements: with family Gender identity (if verbalized by the patient): Female Spiritual care concerns: No Comments At time of signature, agree with nursing past medical, surgical, social and family history. There is no relevant family history pertinent to the presenting complaint. Exam Const: General: cooperative, healthy appearing, comfortable, no acute distress and well nourished Nutritional Appearance: well nourished Orientation/consciousness: patient oriented x3 Limitations: no limitations HENMT: Head: normal to inspection, normocephalic and atraumatic Ears: hearing grossly normal bilaterally and external ears normal Face/Nose/Sinus: Normal external nose present, normal facial exam and face symmetric Face and sinus: normal facial exam and face symmetric Mouth: Yes lip normal Eyes: General: appearance normal, both eyes and all related structures Alignment and Position: alignment normal and position normal Periorbital: periorbital findings normal Eyelids: eyelids normal Pupils: Equal, round and reactive pupils present EOM: EOMs intact bilaterally Neck: Neck: normal visual inspection, full ROM and supple Chest: Chest palpation & inspection: normal inspection of the chest Resp: Effort & Inspection: normal respiratory effort and able to speak in complete sentences Auscultation: clear to auscultation bilaterally Cardio: Rate: regular rate Rhythm: regular rhythm Heart sounds: S1 normal heart sound present and S2 normal heart sound present GI: Inspection: normal to inspection Skin: General skin exam: normal color and no rashes or lesions noted Neuro: General: patient oriented x3 and moves all extremities Cranial nerves: Yes Equal, round and reactive pupils present Speech: normal speech Gait exam (Neuro): Normal gait present Extrem: General: normal to inspection, full ROM and no edema Right upper extremity: Extremity exam: right hand normal capillary refill, neuromotor exam normal wrist extension normal, thumb opposition normal, thumb IP flexion normal, thumb ADduction normal and fingers 2-5 ABduction normal, neurosensory exam normal radial nerve sensory function normal, ulnar nerve sensory function normal, median nerve sensory function normal and digital nerve sensory function normal, tendon exam normal of all digits extensor tendon, flexor digitorum profundus and flexor digitorum superficialis, tenderness of the thumb at the distal phalanx, abnormal ROM of finger pain with active ROM of the thumb, swelling of the thumb at the distal phalanx and ecchymosis of the thumb at the distal phalanx Psych: Appearance: grossly normal and well kempt Mental Status: mental status grossly normal Speech and movement: Normal speech and movement present Affect: normal affect Attitude: cooperative Thought process: Normal thought process present Course Course Emergency Course: Patient is aware of diagnosis, understands and agrees to treatment plan. Anticipatory guidance given. Patient agrees to follow-up as directed and is aware of reasons to seek care at the emergency department. Portions of this record may have been created with voice recognition software Level of Care: Express Care Visit Vital Signs Vital signs: Vital Signs Temperature 36.3 C L 02/01/24 12:55 Pulse Rate 98 02/01/24 12:55 Respiratory Rate 16 02/01/24 12:55 Blood Pressure 137/75 02/01/24 12:55 Pulse Oximetry 98 02/01/24 12:55 Oxygen Delivery Room Air 02/01/24 12:55 Temperature 36.3 C L 02/01/24 12:55 Pulse Rate 98 02/01/24 12:55 Respiratory Rate 16 02/01/24 12:55 Blood Pressure 137/75 02/01/24 12:55 Pulse Oximetry 98 02/01/24 12:55 Oxygen Delivery Room Air 02/01/24 12:55 Reviewed MDM - Extremity Injury (Upper) MDM Narrative Medical decision making narrative: Exam findings show fracture right thumb. Placed in splint; patient is non-toxic appearing and is in no distress.? Patient is appropriate for outpatient treatment and follow-up. Discharge instructions reviewed with patient, as well as provided in writing per nursing staff. The instructions also include specific and strict return/GO TO THE ER as well as f/u information. All questions have been answered, and the patient deny any further questions with discharge and discharge plan. Differential Diagnosis Differential diagnosis: Likely finger sprain and other (Finger fracture) Medical Records Attestation: I reviewed the patient's medical records. Imaging Data Radiologist's impression: EXAMINATION: XR finger 1st RT min 2V DATE: 02/01/2024 13:06 INDICATION: Pain at the distal right thumb post injury TECHNIQUE: Dorsal palmar, lateral and 2 oblique views of the right first digit were obtained COMPARISON: None FINDINGS: Nondisplaced transverse extra articular fracture across the proximal metadiaphyseal region of the right first distal phalanx. No other fractures identified. 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 IMPRESSION: 1. Nondisplaced extra articular fracture extending across the right first distal phalanx. Discharge Plan Discharge Clinical Impression: Finger fracture, right Qualifiers: Encounter type: initial encounter Finger: thumb Fracture type: closed Phalanx: distal Fracture alignment: nondisplaced Qualified Code(s): S62.524A - Nondisplaced fracture of distal phalanx of right thumb, initial encounter for closed fracture Patient Disposition: Home, Self-Care Condition: Stable Instructions: Finger Fracture (ED) Additional Instructions: Please rest, ice and elevate the affected extremity. Please take Motrin 600mg every 8 hours, as needed, for pain (take with food). Follow up with PCP in 1-2 days for further evaluation - please call for an appointment. Keep splint/cast clean, dry and on. Please go to ER immediately for increased pain, tingling/numbness, swelling, redness, and fever Prescriptions: No Action trazodone 50 mg tablet 50 mg PO DAILY metformin 1,000 mg tablet 1,000 mg PO DIRECTED losartan 50 mg tablet 50 mg PO DAILY rosuvastatin 20 mg tablet 20 mg PO DAILY Follow-up/Referrals: Kaylie,CLAUDIA Shine [Primary Care Provider] - 3 Days Time of Disposition: 13:39
[2024-02-01 12:55] VITALS: BP 137/75; PULSE 98; RESP 16; TEMP 36.3; O2SAT 98
== END 2024-02-01 13:44 | disposition home or self-care (01) ==
PROVIDERS: Emergency Provider Nurse Practitioner Family; PCP Physician Assistant
DX: S62.524A Nondisplaced fracture of distal phalanx of right thumb, initial encounter for closed fracture (principal); W22.8XXA Striking against or struck by other objects, initial encounter; I10 Essential (primary) hypertension; E11.9 Type 2 diabetes mellitus without complications; Z79.84 Long term (current) use of oral hypoglycemic drugs; E78.5 Hyperlipidemia, unspecified; F17.210 Nicotine dependence, cigarettes, uncomplicated
CPT/HCPCS: 73140; 99214; G0463

== ENCOUNTER 2024-03-02 09:55 | Emergency (ER) | payer MEDICARE, SELFPAY ==
--- NOTE | ~2024-03-02 | XR_ITS ---
CHEST RADIOGRAPH, PA AND LATERAL CLINICAL HISTORY: prod cough x 3 days . COMPARISON: 07/27/2022 TECHNIQUE: PA and lateral views of the chest. FINDINGS The cardiomediastinal silhouette is unremarkable. The lungs are clear. Visualized osseous structures and soft tissues are unremarkable. IMPRESSION: No focal infiltrate or effusion. Reviewed, dictated and finalized at location A. [facility] MAKER
[2024-03-02 10:08] VITALS: BP 133/73; PULSE 124; RESP 16; TEMP 37.2; O2SAT 97
--- NOTE | 2024-03-02 10:17 | ED_ITS ---
HPI - URI/Sore Throat General Chief Complaint: Upper Respiratory Infection Stated Complaint: wheezing , cough, chest tight Hx COPD Time Seen by Provider: 03/02/24 10:00 Source: patient Mode of arrival: ambulatory Limitations: no limitations History of Present Illness HPI Narrative: Patient is a 60-year-old female presents with 3 days of productive cough, chest congestion and wheezing. Patient has history of COPD and smokes half a pack a day. Has been using Mucinex, Claritin-D and her inhaler. 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 Related Data Home Medications ?Medication ?Instructions ?Recorded ?Confirmed ?Last Taken ?Type metformin 1,000 mg tablet 1,000 mg PO DIRECTED 04/01/19 03/02/24 Unknown History trazodone 50 mg tablet 50 mg PO DAILY 04/01/19 03/02/24 Unknown History losartan 50 mg tablet 50 mg PO DAILY 07/27/22 03/02/24 Unknown History rosuvastatin 20 mg tablet 20 mg PO DAILY 07/27/22 03/02/24 Unknown History albuterol sulfate 90 mcg/actuation inhalation 03/02/24 Unknown History aerosol inhaler benzonatate 200 mg capsule 200 mg PO 03/02/24 Unknown History Allergies Allergy/AdvReac Type Severity Reaction Status Date / Time No Known Allergies Allergy Verified 03/02/24 10:03 Review of Systems Review of Systems: All systems reviewed & are unremarkable except as noted in HPI and below Constitutional: Constitutional: Denies body ache(s), Denies chills, Denies fatigue, Denies fever(s), Denies headache(s), Denies malaise and Denies weakness Eyes: Eyes: Denies blurry vision, Denies itchy eyes and Denies loss of vision ENT: Denies otalgia, Denies headache(s), Reports nasal congestion, Denies sinus pain and Denies sore throat Cardiovascular: Cardiovascular: Denies chest pain, Denies irregular heart rhythm and Denies dyspnea Respiratory: Respiratory: Reports chest congestion, Reports cough, Denies dyspnea and Reports wheezing Gastrointestinal: Gastrointestinal: Denies abdominal pain, Denies diarrhea, Denies nausea and Denies vomiting Musculoskeletal: Musculoskeletal: Denies back pain, Denies myalgias and Denies arthralgias Integumentary/Breasts: Skin/Breast: Denies pruritus and Denies rash Neurologic: Denies headache(s), Denies loss of vision and Denies weakness Psychiatric: Psychiatric: Reports no additional psychiatric complaints Endocrine: Endocrine: Denies fatigue Allergic/Immunologic: Allergic/Immunologic: Denies itchy eyes PMFSH Past Medical History Medical History HLD (hyperlipidemia) HTN (hypertension) Type 2 diabetes mellitus without complication Vitamin D deficiency Surgical History Surgical History History of cholecystectomy History of hysterectomy Family History Family History Mother Family history of diabetes mellitus in first degree relative Father Family history of diabetes mellitus in first degree relative Family history of coronary artery disease Social History Social History Smoking packs per day: 0.5 Smoking cigarettes per day: 10.0 Smoking status: Current every day smoker Alcohol intake: never Substance use: never Living arrangements: with family Gender identity (if verbalized by the patient): Female Spiritual care concerns: No Comments At time of signature, agree with nursing past medical, surgical, social and family history. There is no relevant family history pertinent to the presenting complaint. Exam Const: General: cooperative, healthy appearing, comfortable, no acute distress and well nourished Nutritional Appearance: well nourished Orientation/consciousness: patient oriented x3 Limitations: no limitations HENMT: Head: normal to inspection, normocephalic and atraumatic Ears: hearing grossly normal bilaterally, external ears normal, TM's normal bilaterally, EAC's normal and no periauricular adenopathy Face/Nose/Sinus: Normal external nose present, Abnormal mucous membranes and turbinates present erythematous bilateral and diffuse, normal facial exam, sinuses nontender and face symmetric Face and sinus: normal facial exam, sinuses nontender and face symmetric Mouth: Yes Normal oral and palatal mucosa present, Yes lip normal, Yes tongue normal, Yes Normal salivary glands and ducts present, Yes oropharynx normal and Yes moist mucous membranes Teeth and gingiva: dentition normal Throat: posterior oropharynx normal, tonsils normal and uvula midline Eyes: General: appearance normal, both eyes and all related structures Alignment and Position: alignment normal and position normal Periorbital: periorbital findings normal Eyelids: eyelids normal Pupils: Equal, round and reactive pupils present Neck: Neck: normal visual inspection, full ROM, no lymphadenopathy and supple Chest: Chest palpation & inspection: normal inspection of the chest and normal palpation of entire chest wall Resp: Effort & Inspection: normal respiratory effort and able to speak in complete sentences Auscultation: clear to auscultation bilaterally, no crackles, no rales, no rhonchi and no wheezes Cardio: Rate: regular rate Rhythm: regular rhythm Heart sounds: S1 normal heart sound present and S2 normal heart sound present GI: Inspection: normal to inspection Skin: General skin exam: normal color and no rashes or lesions noted Neuro: General: patient oriented x3 and moves all extremities Cranial nerves: Yes Equal, round and reactive pupils present Speech: normal speech Gait exam (Neuro): Normal gait present Extrem: General: normal to inspection, full ROM and no edema Psych: Appearance: grossly normal and well kempt Mental Status: mental status grossly normal Speech and movement: Normal speech and movement present Affect: normal affect Attitude: cooperative Thought process: Normal thought process present Course Course Emergency Course: Discharge instructions reviewed with patient, as well as provided in writing per nursing staff. The instructions also include specific and strict return/GO TO THE ER as well as f/u information. All questions have been answered, and the patient deny any further questions with discharge and discharge plan. Portions of this record may have been created with voice recognition software Level of Care: Express Care Visit Vital Signs Vital signs: Vital Signs Temperature 37.2 C 03/02/24 10:08 Pulse Rate 124 H 03/02/24 10:08 Respiratory Rate 16 03/02/24 10:08 Blood Pressure 133/73 03/02/24 10:08 Pulse Oximetry 97 03/02/24 10:08 Oxygen Delivery Room Air 03/02/24 10:08 Temperature 37.2 C 03/02/24 10:08 Pulse Rate 124 H 03/02/24 10:08 Respiratory Rate 16 03/02/24 10:08 Blood Pressure 133/73 03/02/24 10:08 Pulse Oximetry 97 03/02/24 10:08 Oxygen Delivery Room Air 03/02/24 10:08 Reviewed MDM - URI/Sore Throat MDM Narrative Medical decision making narrative: Pt well hydrated appearing, in no respiratory distress, hemodynamically stable. Recommend supportive care. The patient is stable at time of discharge the clinical impression was discussed and the patient was given the opportunity to ask questions, which were addressed as completely as possible given the i nformation available at present. Anticipatory guidance and return to care precautions were discussed and the importance of primary care follow-up was stressed and encouraged. The patient voiced understanding of the plan, indications to return, and the need for follow-up. Differential diagnosis considered: Proctor virus, strep pharyngitis, allergic rhinitis, upper respiratory tract infection, sinusitis, rhinosinusitis, nasopharyngitis. viral pharyngitis, otitis media, otitis externa, otitis effusion, foreign body, cerumen impaction, viral syndrome, and influenza.? Exam findings show no acute concerns or changes; patient is non-toxic appearing and is in no distress.? Patient is appropriate for outpatient treatment and follow- up.? Medical Records Attestation: I reviewed the patient's medical records. Imaging Data Radiologist's impression: CHEST RADIOGRAPH, PA AND LATERAL CLINICAL HISTORY: prod cough x 3 days . COMPARISON: 07/27/2022 TECHNIQUE: PA and lateral views of the chest. FINDINGS The cardiomediastinal silhouette is unremarkable. The lungs are clear. Visualized osseous structures and soft tissues are unremarkable. IMPRESSION: No focal infiltrate or effusion. Discharge Plan Discharge Clinical Impression: Upper respiratory infection with cough and congestion Patient Disposition: Home, Self-Care Condition: Stable Instructions: Upper Respiratory Infection (ED) Additional Instructions: Take steroids per package instructions. Use Tessalon Perles as needed for cough. Use inhaler with spacer as needed. X-ray did not show pneumonia Other symptomatic treatments include: -Alternate Tylenol and Motrin per package directions for fever or pain. -Antihistamine medication such as Benadryl at night and Zyrtec/Claritin/Linda during the day can help improve symptoms. -Use Flonase twice a day for 5 days then daily to help reduce the inflammation and dry up your sinuses. -You can also use Sudafed or Mucinex. Be sure to drink plenty of water with these medications at least 8 ounces with every dose and it is important to drink 8 to 10 glasses of water per day. Water is a natural decongestant -Eat and drink things that are easy to swallow, like tea or soup, or popsicles. -Oral rinses such as: Salt water gargles and/or may use topical anesthetic (eg. Chloraseptic spray) or lozenges to relieve dryness or throat pain). -Frequent hand washing or hand infection control specialist is one of the best ways to prevent spread of infection. -Using a vaporizer or humidifier at night will also help thin secretions and help with coughing up phlegm. -Follow up with primary care provider in 3-5 days if condition is not improving - For new or worsening symptoms go directly to the nearest ER Patient Language: Malay Prescriptions: New methylprednisolone [Medrol (Alexis)] 4 mg tablets,dose pack See Rx Instructions .ROUTE .COMPLEX Qty: 21 0RF Rx Instructions: orally per package directions albuterol sulfate 90 mcg/actuation HFA aerosol inhaler 2 puff inhalation QID PRN (Reason: shortness of breath or wheezing) Qty: 6.7 0RF No Action trazodone 50 mg tablet 50 mg PO DAILY metformin 1,000 mg tablet 1,000 mg PO DIRECTED losartan 50 mg tablet 50 mg PO DAILY rosuvastatin 20 mg tablet 20 mg PO DAILY benzonatate 200 mg capsule 200 mg PO albuterol sulfate 90 mcg/actuation HFA aerosol inhaler INHALATION Follow-up/Referrals: Kaylie,CLAUDIA Shine [Primary Care Provider] - 3 Days Time of Disposition: 10:51
== END 2024-03-02 10:55 | disposition home or self-care (01) ==
PROVIDERS: Emergency Provider Nurse Practitioner Family; PCP Physician Assistant
DX: J06.9 Acute upper respiratory infection, unspecified (principal); R05.9 Cough, unspecified; J44.9 Chronic obstructive pulmonary disease, unspecified; I10 Essential (primary) hypertension; E11.9 Type 2 diabetes mellitus without complications; Z79.84 Long term (current) use of oral hypoglycemic drugs; E78.5 Hyperlipidemia, unspecified; F17.210 Nicotine dependence, cigarettes, uncomplicated
CPT/HCPCS: 71046; 99213; G0463

== ENCOUNTER 2024-05-03 13:56 | Outpatient (CLI) | payer MEDICARE, SELFPAY ==
--- NOTE | ~2024-05-03 | DEXA_ITS ---
Bone Density Report Name: FLO JOSHI Age: 68 Sex: Female Ethnicity: White Date of : 1955 Indication: postmenopausal; screening for osteoporosis; hysterectomy; Referring Provider: DAO, OSORIO Study: Bone densitometry was performed. Exam Date: May 03, 2024 Accession number: [id number] Bone Density: Region BMD T-score Z-score Classification AP Spine(L1-L4) 0.878 -1.5 0.5 Osteopenia Femoral Neck (Left) 0.783 -0.6 1.1 Normal Total Hip (Left) 0.926 -0.1 1.3 Normal Femoral Neck (Right) 0.741 -1.0 0.7 Normal Total Hip (Right) 0.926 -0.1 1.3 Normal Total Hip Mean 0.926 -0.1 1.3 Normal World Health Organization criteria for BMD impression classify patients as: Normal (T-score at or above -1.0), Osteopenia (T-score between -1.0 and -2.5), or Osteoporosis (T-score at or below -2.5). 10-year Fracture Risk(1): Major Osteoporotic Fracture 8.2% Hip Fracture 1.2% Reported Risk Factors: [place] (), Neck BMD=0.741, BMI=31.8, smoking (1) FRAX(R) Version 3.08. Fracture probability calculated for an untreated patient. Fracture probability may be lower if the patient has received treatment. Clinical Information Provided by Patient: Smokes Has the following medical conditions: Hysterectomy Patient maximum height was 63 Menopause Age: 37 No regular weight bearing exercise Drinks caffeinated beverages Onset of menses at age 12 Number of children 2 Impression: The patient has low bone mass, based on the Total Spine T-score. The patient has an estimated ten-year risk of hip fracture of 1.2% and an estimated ten-year risk of major fracture of 8.2%, based on the WHO FRAX algorithm. The patient has risk factors, including: smoking. Discussion: BONE DENSITY IS LOW AT ONE OR MORE SKELETAL SITES. This patient's lowest T-score is low at one or more skeletal sites. It meets the World Health Organization's (WHO) criteria for ?low bone mass? (T-score between -1.0 and -2.5). The patient's 10-year risk of fracture as calculated by FRAX is less than the threshold where pharmacological therapy is recommended by the National Osteoporosis Foundation (NOF). However, all treatment decisions require clinical judgment and consideration of individual patient factors, including patient preferences, comorbidities, previous drug use, risk factors not captured in the FRAX model (e.g., frailty, falls, vitamin D deficiency, increased bone turnover, interval significant decline in bone density) and possible under or overestimation of fracture risk by FRAX. The patient should follow a healthful lifestyle (good nutrition with adequate calcium and vitamin D, and appropriate weight-bearing exercise). Follow-Up: Consider repeating this study in 2 to 3 years to reassess this patient's status, or sooner if there is some new clinical indication. Reported by: PAGE on 05/03/2024 2:42:00 PM. Reviewed, dictated and finalized at location [facility]
--- OUTSIDE RECORDS SUMMARY | 2024-05-03 15:43 | XMS_ITS | Encounter Summary ---
Author Organization [facility] Healthcare Address [address] [place] [address] Care Team Providers Care Vaccine Manager Name Role Phone Fátima Lott Primary Care Provider [phone] Sukhdeep Sims MD Unavailable [phone] Encounter Details Date Type Department Care Team (Late st Contact Info) Description 04/28/2024 Results Follow-Up [facility] [address] [place] [address] Fátima Lott PA [address] [place] [address] Social History Tobacco Use Types Packs/Day Years Used Date Smoking Tobacco: Every Day Cigarettes 0.5 55.2 Started: 1970 Smokeless Tobacco: Never Alcohol Use Standard Drinks/Week Comments Never 0 (1 standard drink = 0.6 oz pur e alcohol) AUDIT-C Answer Date Recorded Q1: How often do you have a drink containing alcohol? Never 02/03/2024 Q2: How many drinks containi ng alcohol do you have on a typical day when you are drinking? Patient does not drink Q3: How often do you have si x or more drinks on one occasion? Never 02/03/2024 PHQ-2 Answer Date Recorded PHQ-2 Total Score (If total score is 3 or more points, staff should administer the PHQ-9) 0 04/26/2024 PHQ-9 Answer Date Recorded PHQ-9 Total Score 6 10/26/2023 Personal Safety Answer Date Recorded Have you ever been in or are you currently in a harmful physical or emotional relationship or is someone making you feel afraid or unsafe? 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
--- OUTSIDE RECORDS SUMMARY | 2024-05-03 15:43 | XMS_ITS | Clinical Summary ---
Author Organization [facility] Address [address], [address] [address] Phone Care Team Providers Care Supervisor Nutritional Yeast Name Role Phone Fátima Lott [facility] Primary Care Provider [phone] Social History Tobacco Use Types Packs/Day Years Used Date Smoking Tobacco: Never Assessed Comments Unknown Sex and Gender Information Value Date Recorded Sex Assigned at Not on file Legal Sex Female 9:12 AM CDT Gender Identity Not on file Sexual Orientation Not on file Plan of Treatment Health Maintenance Due Date Last Done Comments DEXA Bone Density 1955 Hepatitis C Virus (HCV) Screening 1955 Colonoscopy 12/25/2000 Colorectal Cancer Screening 12/25/2000 Cologuard 12/25/2005 Immunochemical Fecal Occult Blood 12/25/2005 Mammogram 12/25/2005 Pneumococcal Immunization (50+ years) (1 of 1 - PCV) 12/25/2005 Zoster Immunization (1 of 2) 12/25/2005 Influenza Immunization (#1) 2023 1006/2019, 12/15/2018, 12/15/2013, Additional history exists SARS-COV-2 Immunization ( season) 2023 11/27/2020, 05/21/2020, 04/30/2020 Respiratory Syncytial Virus (RSV) Immunization (Adult) (1 - 1-dose 75+ series) 12/25/2030 DTaP/Tdap/Td Immunization Discontinued 07/30/2018 TdaP Immunization Completed 07/30/2018 Hepatitis B Immunization Aged Out No longer eligible based on patient's age to complete this topic Meningococcal Immunization (ACWY) Aged Out No longer eligible based on patient's age to complete this topic Rotavirus Immunization Aged Out No lo nger eligible based on patient's age to complete this topic Insurance [facility] O[facility] Care Teams Supervisor Nutritional Yeast Relationship Specialty Start Date End Date Fátima Lott PAC PCP - General Physician [employer] 08/08/19
--- OUTSIDE RECORDS SUMMARY | 2024-05-03 15:43 | XMS_ITS | Clinical Summary ---
Author Organization [facility] [address] [facility] Address [address] [place] [address] Care Team Providers Care Lens Generating Machine Tender Name Role Phone Fátima Lott Primary Care Provider [phone] Sukhdeep Sims MD Unavailable [phone] Allergies No known active allergies Medications LORazepam (ATIVAN) 0.5 mg tablet Take one tab 1 hour prior to flight. Avoid alcohol. Do Not Drive. 8 tablet 3 Active traZODone (DESYREL) 50 mg tabletIndications: Primary insomnia Take 1 tablet (50 mg total) by mouth nightly 90 tablet 2 4 Active rosuvastatin (CRESTOR) 20 mg tablet Take 1 tablet (20 mg total) by mouth daily 90 tablet 1 4 Active metFORMIN (GLUCOPHAGE) 1,000 mg tabletIndications: Type 2 diabetes mellitus with hyperlipidemia (HCC) Take 1 tablet (1,000 mg total) by mouth daily with breakfast 90 tablet 2 4 Active losartan (COZAAR) 50 mg tablet Take 1 tablet (50 mg total) by mouth daily 90 tablet 1 4 Active albuterol HFA (ProAir HFA) 90 mcg/actuation inhaler Inhale 2 puffs every 4 (four) hours as needed for wheezing or shortness of breath 8.5 g 4 12/23/19 25 Active Active Problems Problem Noted Date Diagnosed Date Viral upper respiratory tract infection 02/29/20 24 Assessment & Plan (02/29/2024 1:38 PM DOUBLE SURFACE OPERATOR): Recommend fluids, rest, humidification if needed. She was instructed to call back if symptoms do not improved in a week, or if worsening ones arise. Education provided. The common cold or uri (upper respiratory infections) are uniformly caused by viruses.The use of antibiotics for these infections are discouraged in our day and age as a risk without much if any benefit,Increase fluids will help to thin the secretions.Over the counter meds/cold drugs do not cure this problem but can provide help in tolerating the illness.. Some find the decongestant meds helpful but many find them causing more complaints then they are worth. Cough meds come into play when you cannot control the cough. This comes into play especially at night when you are trying to sleep. Short term use of nasal decongestants are helpful (Afrin), especially at night. Using them at a full dose for more then 3 days is highly associated with your nasal passage relying on them, when this happens the nasal membranes will dilate the blood vessels within the nasal wall and weep secretions that plug up your nose. When this occurs it will take several days to return to normal. There is a place for nasal steroid during a cold as a way to help limit secretions and not lead to a nasal addition. Nasal dryness and subsequent bleeding then can occur at which time you will need to reduce or stop there use for the near future. Benzonatate sent to patient pharmacy. If symptoms worsen or do not improve recommend in person evaluation. Patient verbalized understanding and agreed to plan of care at this time. Nondisplaced fracture of dis mart phalanx of right thumb with routine healing 02/08/2024 Assessment & Plan (02/08/2024 3:04 PM DOUBLE SURFACE OPERATOR): Patient has a nondisplaced fracture of the distal phalanx of the right thumb. She is currently immobilized in a splint after being seen in the urgent care. Continue with Tylenol or Motrin as tolerated. Ice to the area. Will make referral to hand for further evaluation BMI 31.0-31.9,adult 02/03/2024 Assessment & Plan (04/26/2024 10:56 AM DOUBLE SURFACE OPERATOR): BMI Follow-up includes: Discussed diet and exercising counseling. Assessment & Plan (02/03/2024 2:30 PM DOUBLE SURFACE OPERATOR): Discussed the patient's BMI. The BMI is above average. BMI management plan is completed. BMI Follow-up includes: nutrition counseling, exercise counseling and education provided. Obesity (BMI 30.0-34.9) 11/01/2023 Assessment & Plan (04/26/2024 10:56 AM DOUBLE SURFACE OPERATOR): BMI Follow-up includes: Discussed diet and exercising counseling. Assessment & Plan (02/03/2024 2:30 PM DOUBLE SURFACE OPERATOR): Discussed the patient's BMI. The BMI is above average. BMI management plan is completed. BMI Follow-up includes: nutrition counseling, exercise counseling and education provided. Assessment & Plan (11/01/2023 7:45 PM CDT): Discussed the patient's BMI. The BMI is above average. BMI management plan is completed. BMI Follow-up includes: nutrition counseling, exercise counseling and education provided. Hypertension associated with diabetes 11/01/2023 Assessment & Plan (11/01/2023 7:43 PM CDT): Bp is stable/in acceptable range for any co-morbidities. Encouraged to limit sodium intake and exercise for weight control. Stressed importance of continued A1c control to minimize the senior care effects of diabetes. Bring accuchecks to office when instructed to do so. Check A1c about every 3-6 months. Take medication as prescribed. Get annual eye exam. Encouraged AVELINO/Statin if able to tolerate. Encouraged weight control and encouraged diabetic diet and exercise. Continue losartan 50 continue metformin 1 g daily. She is doing well with diabetes control with the most current A1c at 7.0 Anemia 11/01/2023 Assessment & Plan (11/01/2023 7:48 PM CDT): History of anemia. Recheck labs Annual physical exam 11/01/2023 Assessment & Plan (11/01/2023 7:48 PM CDT): Encouraged healthy lifestyle, good nutrition and exercise. Encouraged Calcium and Vitamin D and weight bearing exercise for bone health. Reviewed immunizations Reviewed age appropirate screenings. Mass of skin of right shoulder 04/20/2023 Assessment & Plan (04/20/2023 2:18 PM DOUBLE SURFACE OPERATOR): This is a significant, separately identifiable problem that was evaluated and managed on the same day as the wellness exam Patient has a mass on the right skin of the shoulder lateral to the acromion. I suspect this is cystic or fatty type tumor. Will check a x-ray to try to determine if it is part of the joint. If not because it is beginning to limit and affect her motion will consider excision. She is in agreement with the plan Tinea cruris 01/14/2023 Assessment & Plan (01/14/2023 2:55 PM DOUBLE SURFACE OPERATOR): Rashes consistent with tinea. Keep area clean and dry. May need to use a cool hair continuous drier operator to the area prior to applying the Lotrisone. May use powder once things are cleared up to prevent. If symptoms worsen or do not resolve she is to call back immediately Chronic obstructive pulmonary disease 12/19/2022 Assessment & Plan (11/01/2023 7:45 PM CDT): Saw her in area Dr. Watson. She is asymptomatic with her COPD so willing to just monitor. Encouraged complete smoking cessation. Has tried Wellbutrin XL. Did not want to continue. She continues to work hard on cutting back Assessment & Plan (04/20/2023 2:16 PM DOUBLE SURFACE OPERATOR): Strongly encouraged complete smoking cessation. She is managing without any symptoms some so will hold off on any inhalers at this time. If symptoms change she is to follow up immediately and will reconsult with Dr. Ortega Assessment & Plan (12/19/2022 12:07 PM CDT): Patient had COPD exacerbation in July of this year. She is still smoking not ready to stop. Last low-dose CT was done in September. She has not had PFTs. She discontinued the breasts tree as she felt like she was worse on it. Recommend referral to pulmonology for full COPD workup and so they can help develop a plan to help with her chronic disease. She is in agreement with the plan Cigarette smoker 12/19/2022 Assessment & Plan (11/01/2023 7:46 PM CDT): Encouraged smoking cessation. Discussed 3 minutes. Reviewed options for assistance with cessation. Reviewed senior care sequela associated with smoking. Pt declines assistance at this time but may contact the office at anytime for further help as they desire. Assessment & Plan (04/20/2023 2:17 PM DOUBLE SURFACE OPERATOR): Encouraged smoking cessation. Discussed 3 minutes. She is on Wellbutrin and tolerating the 150 well. Willing to increase to the 300 to see if this helps with cessation effort even more. Will increase to 300. She may take 2 of the 150 XL until they are exhausted. Assessment & Plan (01/14/2023 2:53 PM DOUBLE SURFACE OPERATOR): Pt desires assistance with cessation. Discussed options at length. Will start Wellbutrin. No seizure history. Reviewed risks, benefits, alternatives, side effects and proper use. Take first thing in the am to avoid sleep disturbances. Encouraged to decreased cigs as tolerated. Plan to stay on the Wellbutrin for 4-6 months, even if successful in cessation quickly. F.u if any increased emotional sxs or suicidal thoughts Assessment & Plan (12/19/2022 12:08 PM CDT): Encouraged smoking cessation. Discussed 3 minutes. Reviewed options for assistance with cessation. Reviewed cut in worker sequela associated with smoking. Pt declines assistance at this time but may contact the office at anytime for further help as they desire. Fear of flying 08/08/2022 Assessment & Plan (08/08/2022 4:32 PM CDT): Patient requests refill of her Ativan as she will be flying this summer. Reminded patient no alcohol and do not drive while taking Fatigue 07/21/2021 Assessment & Plan (11/01/2023 7:46 PM CDT): Probably multifactorial. Check labs and followup to re-evaluate Assessment & Plan (04/20/2023 2:17 PM DOUBLE SURFACE OPERATOR): Probably multifactorial. Check labs and followup to re-evaluate Assessment & Plan (06/28/2022 10:23 AM CDT): Probably multifactorial. Check labs and followup to re-evaluate Assessment & Plan (07/21/2021 10:44 AM CDT): Probably multifactorial. Check labs and followup to re-evaluate Adhesive capsulitis of left shoulder 04/10/2021 Cough 03/27/2021 Assessment & Plan (01/14/2023 2:52 PM DOUBLE SURFACE OPERATOR): Patient has had a cough for the last 4 days. It is productive. Negative COVID, negative flu a and B, and negative RSV. He has COPD and has had history of recent exacerbation. Did not tolerate the breasts tree so has just been using albuterol. States just needs it 1 to 2 times a day. Using Mucinex and Robitussin with codeine as well as Flonase. Differentials include viral infection versus pneumonia versus COPD exacerbation. Will go ahead and start Levaquin daily times 10 days and prednisone 50 mg daily x5 days. She did not tolerate Augmentin in the past due to GI upset. Continue with albuterol p.r.n.. May need to consider maintenance inhaler after exacerbation is taking care of. Will check a chest x-ray. Patient has a O2 sat monitor at home and if drops below 92-90 she is to consider the ER. Assessment & Plan (08/04/2022 9:27 PM CDT): Patient has had a persistent cough that started around day. Finished a course of antibiotics and a Medrol Dosepak and has not seen complete resolution. Symptoms have returned she is coughing harsh every day. It is productive. Start with a chest x-ray. Suspect pneumonia vs COPD exacerbation vs other etiology. O2 sats today are 94. Reviewed with her if they start to drop below 90 she will need to consider going to the ER. She has O2 sat machine at home. Start Levaquin 1 daily times 10 days. Prednisone 50 mg q.a.m. x5 days. Continue albuterol p.r.n. but can take it as often as 1-2 puffs every 3-4 hours as needed. Follow-up on Wednesday or sooner for any other problems or concerns. Assessment & Plan (03/27/2021 5:52 PM DOUBLE SURFACE OPERATOR): Will send patient to [facility] for Covid-19 testing. The patient was advised to quarantine at least 10 days from symptom onset, but this determination will depend on result of testing. They were advised to contact us in the next 72h if they have not heard results of testing. They were advised to report to the ER if worsening. Pharyngitis 03/27/2021 Abnormal EKG 02/10/2021 Assessment & Plan (02/10/2021 8:38 AM DOUBLE SURFACE OPERATOR): This is a significant, separately identifiable problem that was evaluated and managed on the same day as the wellness exam EKG did in office today with Medicare wellness exam. Patient is completely asymptomatic but EKG did show nonspecific T-wave abnormalities and she is tachycardic. She has risk factors including diabetes, hyperlipidemia and cigarette smoking. Will go ahead and send her to Cardiology for evaluation determine if further follow-up is needed. Chronic left shoulder pain 02/08/2021 Assessment & Plan (02/10/2021 8:38 AM DOUBLE SURFACE OPERATOR): This is a significant, separately identifiable problem that was evaluated and managed on the same day as the wellness exam Persistent left shoulder pain. Has not had full relief with physical therapy. Using Mobic p.r.n.. Will make refer to ortho for further evaluation Colon cancer screening 02/08/2021 Assessment & Plan (02/10/2021 8:36 AM DOUBLE SURFACE OPERATOR): Patient past due for colon cancer screening last [address] Guy 2012. Was due in 2018. Refer to Dr. Baldwin for follow-up colonoscopy Bronchitis 09/26/2020 Assessment & Plan (09/26/2020 7:22 PM CDT): This is a significant, separately identifiable problem that was evaluated and managed on the same day as the wellness exam Persistent symptoms. Negative COVID in the past few weeks COVID vaccinated with Pfizer x 2 Pt is a smoker Appears in no distress Prednisone, Levaquin and albuterol to pharm. If sxs worsen she is to go to the ER. Discussed CXR and she declined. Microscopic hematuria 04/05/2020 Overview (04/05/2020): 2019 -- Dr. Calderon -- workup negative. No further workup needed. Chronic midline low back pain without sciatica 0 11/11/2019 Assessment & Plan (11/11/2019 10:42 AM CDT): SI joint pain and chronic back pain. Encouraged PT. Pt declined. Pica 03/20/2019 Assessment & Plan (03/20/2019 12:02 AM DOUBLE SURFACE OPERATOR): MCV was a little low and she has noted increased ice eating. AVELINO-inhibitor cough 03/08/2019 Lung nodule 03/08/2019 Overview (02/08/2021): 03/2019 - LDCT -- benign changes. Repeat 03/202004/04/2020 LDCT -- benign changes. Repeat 04/2021 Assessment & Plan (02/08/2021 11:44 PM DOUBLE SURFACE OPERATOR): Next low-dose CT due after April 05, 2021. Will place order to be scheduled after April 05 Assessment & Plan (04/07/2020 7:57 PM DOUBLE SURFACE OPERATOR): LDCT due for routine screeing. Will schedule. Assessment & Plan (03/19/2019 11:59 PM DOUBLE SURFACE OPERATOR): Need to repeat LDCT from 08/2016 - which showed benign changes/followup 1 year. Controlled type 2 diabetes steve boggs without complication, without long-term current use of insulin 08/25/2018 Assessment & Plan (11/01/2023 7:44 PM CDT): Stressed importance of continued A1c control to minimize the cut in worker effects of diabetes. Bring accuchecks to office when instructed to do so. Check A1c about every 3-6 months. Take medication as prescribed. Get annual eye exam. Encouraged AVELINO/Statin if able to tolerate. Encouraged weight control and encouraged diabetic diet and exercise. Continue metformin 1 g daily. A1c is at 7 Assessment & Plan (04/20/2023 2:17 PM DOUBLE SURFACE OPERATOR): Stressed importance of continued A1c control to minimize the senior care effects of diabetes. Bring accuchecks to office when instructed to do so. Check A1c about every 3-6 months. Take medication as prescribed. Get annual eye exam. Encouraged AVELINO/Statin if able to tolerate. Encouraged weight control and encouraged diabetic diet and exercise. Continue metformin 1 g daily Assessment & Plan (12/19/2022 12:06 PM CDT): Stressed importance of continued A1c control to minimize the cut in worker effects of diabetes. Bring accuchecks to office when instructed to do so. Check A1c about every 3-6 months. Take medication as prescribed. Get annual eye exam. Encouraged AVELINO/Statin if able to tolerate. Encouraged weight control and encouraged diabetic diet and exercise. Continue metformin 1 g daily. A1c is tightly controlled at 6.6 Assessment & Plan (06/28/2022 10:22 AM CDT): Stressed importance of continued A1c control to minimize the senior care effects of diabetes. Bring accuchecks to office when instructed to do so. Check A1c about every 3-6 months. Take medication as prescribed. Get annual eye exam. Encouraged AVELINO/Statin if able to tolerate. Encouraged weight control and encouraged diabetic diet and exercise. Continue metformin 1 g daily Assessment & Plan (02/15/2022 10:21 AM DOUBLE SURFACE OPERATOR): Stressed importance of continued A1c control to minimize the cut in worker effects of diabetes. Bring accuchecks to office when instructed to do so. Check A1c about every 3-6 months. Take medication as prescribed. Get annual eye exam. Encouraged AVELINO/Statin if able to tolerate. Encouraged weight control and encouraged diabetic diet and exercise. Continue metformin 1 g daily. A1c is at goal Assessment & Plan (07/21/2021 10:43 AM CDT): Stressed importance of continued A1c control to minimize the senior care effects of diabetes. Bring accuchecks to office when instructed to do so. Check A1c about every 3-6 months. Take medication as prescribed. Get annual eye exam. Encouraged AVELINO/Statin if able to tolerate. Encouraged weight control and encouraged diabetic diet and exercise. Patient is due for labs to determine control. Will continue the metformin 1 g daily at this point. Assessment & Plan (02/08/2021 11:37 PM DOUBLE SURFACE OPERATOR): Stressed importance of continued A1c control to minimize the cut in worker effects of diabetes. Bring accuchecks to office when instructed to do so. Check A1c about every 3-6 months. Take medication as prescribed. Get annual eye exam. Encouraged AVELINO/Statin if able to tolerate. Encouraged weight control and encouraged diabetic diet and exercise. Continue metformin check labs Assessment & Plan (09/26/2020 7:18 PM CDT): Stressed importance of continued A1c control to minimize the senior care effects of diabetes. Bring accuchecks to office when instructed to do so. Check A1c about every 3-6 months. Take medication as prescribed. Get annual eye exam. Encouraged AVELINO/Statin if able to tolerate. Encouraged weight control and encouraged diabetic diet and exercise. Continue metformin 1gm qd Assessment & Plan (04/07/2020 7:57 PM DOUBLE SURFACE OPERATOR): Stressed importance of continued A1c control to minimize the senior care effects of diabetes. Bring accuchecks to office when instructed to do so. Check A1c about every 3-6 months. Take medication as prescribed. Get annual eye exam. Encouraged AVELINO/Statin if able to tolerate. Encouraged weight control and encouraged diabetic diet and exercise. Continue metformin 1gm in AM ON statin. Assessment & Plan (10/29/2019 10:00 AM CDT): Stressed importance of continued A1c control to minimize the cut in worker effects of diabetes. Bring accuchecks to office when instructed to do so. Check A1c about every 3-6 months. Take medication as prescribed. Get annual eye exam. Encouraged AVELINO/Statin if able to tolerate. Encouraged weight control and encouraged diabetic diet and exercise. Assessment & Plan (03/20/2019 12:00 AM DOUBLE SURFACE OPERATOR): Stressed importance of continued A1c control to minimize the cut in worker effects of diabetes. Bring accuchecks to office when instructed to do so. Check A1c about every 3-6 months. Take medication as prescribed. Get annual eye exam. Encouraged AVELINO/Statin if able to tolerate. Encouraged weight control and encouraged diabetic diet and exercise. Assessment & Plan (08/27/2018 6:47 PM CDT): This is a significant, separately identifiable problem that was evaluated and managed on the same day as the wellness exam Stressed importance of continued A1c control to minimize the cut in worker effects of diabetes. Bring accuchecks to office when instructed to do so. Check A1c about every 3-6 months. Take medication as prescribed. Get annual eye exam. Encouraged AVELINO/Statin if able to tolerate. Encouraged weight control and encouraged diabetic diet and exercise. Need to check labs to determine control. She has never been on an AVELINO so will start low dose Lisinopril. Reviewed risks, benefit, alternatives, side effects and proper use. Continue statin and glucophage Type 2 diabetes mellitus with hyperlipidemia Assessment & Plan (11/01/2023 7:45 PM CDT): Encouraged patient to follow low fat/low chol diet like the Mediterranean diet. Increase good fats in the diet. Increase exercise. Monitor labs as needed. Continue Crestor 20 Assessment & Plan (04/20/2023 2:15 PM DOUBLE SURFACE OPERATOR): Stressed importance of continued A1c control to minimize the senior care effects of diabetes. Bring accuchecks to office when instructed to do so. Check A1c about every 3-6 months. Take medication as prescribed. Get annual eye exam. Encouraged AVELINO/Statin if able to tolerate. Encouraged weight control and encouraged diabetic diet and exercise. Encouraged patient to follow low fat/low chol diet like the Mediterranean diet. Increase good fats in the diet. Increase exercise. Monitor labs as needed. Continue crest for 20 and metformin 1 g daily Assessment & Plan (12/19/2022 12:06 PM CDT): Encouraged patient to follow low fat/low chol diet like the Mediterranean diet. Increase good fats in the diet. Increase exercise. Monitor labs as needed. Continue Crestor 20 Assessment & Plan (06/28/2022 10:23 AM CDT): Encouraged patient to follow low fat/low chol diet like the Mediterranean diet. Increase good fats in the diet. Increase exercise. Monitor labs as needed. Assessment & Plan (02/15/2022 10:21 AM DOUBLE SURFACE OPERATOR): Encouraged patient to follow low fat/low chol diet like the Mediterranean diet. Increase good fats in the diet. Increase exercise. Monitor labs as needed. Continue simvastatin Assessment & Plan (07/21/2021 10:43 AM CDT): Encouraged patient to follow low fat/low chol diet like the Mediterranean diet. Increase good fats in the diet. Increase exercise. Monitor labs as needed. Continue simvastatin Assessment & Plan (02/08/2021 11:42 PM DOUBLE SURFACE OPERATOR): Encouraged patient to follow fat/low chol diet like the Mediterranean diet. Increase good fats in the diet. Increase exercise. Monitor labs as needed. Continue simvastatin Assessment & Plan (09/26/2020 7:19 PM CDT): Encouraged patient to follow fat/low chol diet like the Mediterranean diet. Increase good fats in the diet. Increase exercise. Monitor labs as needed. Continue statin Assessment & Plan (04/07/2020 7:57 PM DOUBLE SURFACE OPERATOR): Encouraged patient to follow fat/low chol diet like the Mediterranean diet. Increase good fats in the diet. Increase exercise. Monitor labs as needed. Continue statin Assessment & Plan (10/29/2019 10:00 AM CDT): Encouraged patient to continue low fat/low chol diet. Continue exercise. Increase good fats in the diet. Monitor labs as needed. Continue statin Assessment & Plan (03/20/2019 12:00 AM DOUBLE SURFACE OPERATOR): Encouraged patient to continue low fat/low chol diet. Continue exercise. Increase good fats in the diet. Monitor labs as needed. D Assessment & Plan (08/27/2018 6:45 PM CDT): Encouraged patient to continue low fat/low chol diet. Continue exercise. Increase good fats in the diet. Monitor labs as needed. Continue statin Primary insomnia 08/25/2018 Assessment & Plan (11/01/2023 7:45 PM CDT): Continue trazodone 50 mg HS. Tolerating well with good control Assessment & Plan (06/28/2022 10:23 AM CDT): Continue trazodone 50 daily Assessment & Plan (02/15/2022 10:21 AM DOUBLE SURFACE OPERATOR): Continue trazodone 50 Assessment & Plan (07/21/2021 10:44 AM CDT): Continue trazodone Assessment & Plan (02/08/2021 11:42 PM DOUBLE SURFACE OPERATOR): Continue trazodone Assessment & Plan (09/26/2020 7:20 PM CDT): Continue Trazodone Assessment & Plan (04/07/2020 7:57 PM DOUBLE SURFACE OPERATOR): Continue trazodone Assessment & Plan (10/29/2019 10:00 AM CDT): Stable with trazodone Assessment & Plan (03/20/2019 12:01 AM DOUBLE SURFACE OPERATOR): Continue trazodone prn Assessment & Plan (08/27/2018 6:46 PM CDT): Stable with Trazodone Other fatigue 08/25/2018 Assessment & Plan (03/20/2019 12:01 AM DOUBLE SURFACE OPERATOR): Probably multifactorial. Check labs and followup to re-evaluate Assessment & Plan (08/27/2018 6:46 PM CDT): Probably multifactorial. Check labs and followup to re-evaluate Resolved Problems Problem Noted Date Diagnosed Date Resolved Date Positive depression screening 10/26/2023 11/01/2023 Medicare annual wellness visit, subsequent 04/20/2023 11/01/2023 Assessment & Plan (04/20/2023 2:17 PM DOUBLE SURFACE OPERATOR): Encouraged healthy lifestyle, good nutrition and exercise. Encouraged Calcium and Vitamin D and weight bearing exercise for bone health. Reviewed immunizations. Reviewed age appropirate screenings. Medicare Wellness Documentation is completed within the chart Mass of skin of shoulder, right 04/20/2023 04/20/2023 Obesity (BMI 30-39.9) 01/14/20232023 Assessment & Plan (04/20/2023 2:17 PM DOUBLE SURFACE OPERATOR): Discussed the patient's BMI. The BMI is above average. BMI management plan is completed. BMI Follow-up includes: nutrition counseling, exercise counseling and education provided. Assessment & Plan (01/14/2023 2:25 PM DOUBLE SURFACE OPERATOR): Discussed the patient's BMI. The BMI is above average. BMI management plan is completed. BMI Follow-up includes: nutrition counseling, exercise counseling and education provided. Need for immunization against influenza 12/19/2022 04/20/2023 Assessment & Plan (12/19/2022 12:07 PM CDT): Flu vaccine updated in the office today Obesity (BMI 30-39.9) 12/10/20222022 BMI 30.0-30.9,adult 12/10/2022 02/03/20 24 Assessment & Plan (11/01/2023 7:46 PM CDT): Discussed the patient's BMI. The BMI is above average. BMI management plan is completed. BMI Follow-up includes: nutrition counseling, exercise counseling and education provided. Assessment & Plan (04/20/2023 2:16 PM DOUBLE SURFACE OPERATOR): Discussed the patient's BMI. The BMI is above average. BMI management plan is completed. BMI Follow-up includes: nutrition counseling, exercise counseling and education provided. Assessment & Plan (01/14/2023 2:24 PM DOUBLE SURFACE OPERATOR): Discussed the patient's BMI. The BMI is above average. BMI management plan is completed. BMI Follow-up includes: nutrition counseling, exercise counseling and education provided. Assessment & Plan (12/10/2022 10:39 AM CDT): Discussed the patient's BMI. The BMI is above average. BMI management plan is completed. BMI Follow-up includes: nutrition counseling, exercise counseling and education provided. BMI 31.0-31.9,adult 12/10/2022 01/15/20 Assessment & Plan (12/10/2022 10:39 AM CDT): Discussed the patient's BMI. The BMI is above average. BMI management plan is completed. BMI Follow-up includes: nutrition counseling, exercise counseling and education provided. Other emphysema 08/08/2022 12/19/2022 Assessment & Plan (12/19/2022 12:07 PM CDT): Patient had COPD exacerbation in July of this year. She is still smoking not ready to stop. Last low-dose CT was done in September. She has not had PFTs. She discontinued the breasts tree as she felt like she was worse on it. Recommend referral to pulmonology for full COPD workup and so they can help develop a plan to help with her chronic disease. She is in agreement with the plan Assessment & Plan (08/08/2022 4:26 PM CDT): Patient long-term smoker. This is probably a COPD exacerbation. She has not had PFTs. She is to complete the Levaquin and prednisone. Continue use albuterol p.r.n.. Will start breasts tree 2 puffs twice a day. Patient has a follow-up in about 3 months will see if the breasts tree is helping. Strongly encouraged smoking cessation. She is considering. If symptoms persist or return will consider a CT and or Pulmonary referral. Obesity (BMI 30-39.9) 08/07/20222022 Assessment & Plan (08/07/2022 8:57 AM CDT): Discussed the patient's BMI. The BMI is above average. BMI management plan is completed. BMI Follow-up includes: nutrition counseling, exercise counseling and education provided. BMI 31.0-31.9,adult 08/07/2022 12/11/19 Assessment & Plan (08/07/2022 8:57 AM CDT): Discussed the patient's BMI. The BMI is above average. BMI management plan is completed. BMI Follow-up includes: nutrition counseling, exercise counseling and education provided. Obesity (BMI 30-39.9) 08/04/20222022 Assessment & Plan (08/04/2022 11:04 AM CDT): Discussed the patient's BMI. The BMI is above average. BMI management plan is completed. BMI Follow-up includes: nutrition counseling, exercise counseling and education provided. BMI 31.0-31.9,adult 08/04/2022 08/08/19 Assessment & Plan (08/04/2022 11:04 AM CDT): Discussed the patient's BMI. The BMI is above average. BMI management plan is completed. BMI Follow-up includes: nutrition counseling, exercise counseling and education provided. Breast cancer screening by mammogram 06/28/2022 11/01/2023 Assessment & Plan (12/19/2022 12:06 PM CDT): Mammogram order provided Assessment & Plan (06/28/2022 10:24 AM CDT): Mammogram order provided Obesity (BMI 30-39.9) 06/10/20222022 Assessment & Plan (06/28/2022 10:23 AM CDT): Discussed the patient's BMI. The BMI is above average. BMI management plan is completed. BMI Follow-up includes: nutrition counseling, exercise counseling and education provided. BMI 30.0-30.9,adult 06/10/2022 08/05/19 Assessment & Plan (06/10/2022 1:39 PM CDT): Discussed the patient's BMI. The BMI is above average. BMI management plan is completed. BMI Follow-up includes: nutrition counseling, exercise counseling and education provided. Medicare annual wellness visit, initial 02/02/2022 06/28/2022 Assessment & Plan (02/15/2022 10:22 AM DOUBLE SURFACE OPERATOR): Encouraged healthy lifestyle, good nutrition and exercise. Encouraged Calcium and Vitamin D and weight bearing exercise for bone health. Reviewed immunizations. Reviewed age appropirate screenings. Medicare Wellness Documentation is completed within the chart Need for 23-polyvalent pneum ococcal polysaccharide vaccine 02/02/2022 06/28/2022 Assessment & Plan (02/15/2022 10:22 AM DOUBLE SURFACE OPERATOR): Pneumonia 23 updated in the office today Obesity (BMI 30-39.9) 07/02/20212022 Assessment & Plan (02/02/2022 9:57 AM DOUBLE SURFACE OPERATOR): Discussed the patient's BMI. The BMI is above average. BMI management plan is completed. BMI Follow-up includes: nutrition counseling, exercise counseling and education provided. Assessment & Plan (07/02/2021 9:29 AM CDT): Obesity is unchanged. Discussed the patient's BMI. The BMI is above average. BMI management plan is completed. BMI Follow-up includes: nutrition counseling, exercise counseling and education provided. BMI 30.0-30.9,adult 07/02/2021 06/11/19 23 Assessment & Plan (02/02/2022 9:58 AM DOUBLE SURFACE OPERATOR): Discussed the patient's BMI. The BMI is above average. BMI management plan is completed. BMI Follow-up includes: nutrition counseling, exercise counseling and education provided. Assessment & Plan (07/02/2021 9:29 AM CDT): Obesity is unchanged. Discussed the patient's BMI. The BMI is above average. BMI management plan is completed. BMI Follow-up includes: nutrition counseling, exercise counseling and education provided. Welcome to Medicare preventive visit 02/08/2021 02/02/2022 Assessment & Plan (02/08/2021 11:44 PM DOUBLE SURFACE OPERATOR): Encouraged healthy lifestyle, good nutrition and exercise. Encouraged Calcium and Vitamin D and weight bearing exercise for bone health. Reviewed immunizations. Reviewed age appropirate screenings. Medicare Wellness Documentation is completed within the chart Need for vaccination with 13 -polyvalent pneumococcal conjugate vaccine 02/08/2021 Assessment & Plan (02/08/2021 11:45 PM DOUBLE SURFACE OPERATOR): Pneumonia 13 updated in the office today Obesity (BMI 30-39.9) 01/29/20212021 Assessment & Plan (01/29/2021 11:09 AM DOUBLE SURFACE OPERATOR): Obesity is unchanged. Discussed the patient's BMI. The BMI is above average. BMI management plan is completed. BMI Follow-up includes: nutrition counseling, exercise counseling and education provided. BMI 31.0-31.9,adult 01/29/2021 07/03/19 Assessment & Plan (01/29/2021 11:09 AM DOUBLE SURFACE OPERATOR): Obesity is unchanged. Discussed the patient's BMI. The BMI is above average. BMI management plan is completed. BMI Follow-up includes: nutrition counseling, exercise counseling and education provided. Acute pain of left shoulder 01/25/2021 02/08/2021 Assessment & Plan (01/25/2021 1:20 PM DOUBLE SURFACE OPERATOR): Encouraged NSAIDS (if able to safely tolerate) or Tylenol. Topical preparations like Lidocaine patches, Biofreeze, ICYHOT etc as needed. Heat, stretching Check xray Encouraged PT. His symptoms worsen or do not resolve will need additional imaging with MRI and or referral to Ortho. Obesity (BMI 30-39.9) 12/18/20202020 Assessment & Plan (12/18/2020 8:07 AM CDT): Obesity is unchanged. Discussed the patient's BMI. The BMI is above average. BMI management plan is completed. BMI Follow-up includes: nutrition counseling, exercise counseling and education provided. BMI 30.0-30.9,adult 12/18/2020 01/30/20 Assessment & Plan (12/18/2020 8:07 AM CDT): Obesity is unchanged. Discussed the patient's BMI. The BMI is above average. BMI management plan is completed. BMI Follow-up includes: nutrition counseling, exercise counseling and education provided. Obesity (BMI 30-39.9) 09/26/20202020 Assessment & Plan (09/26/2020 10:10 AM CDT): Obesity is unchanged. Discussed the patient's BMI. The BMI is above average. BMI management plan is completed. BMI Follow-up includes: nutrition counseling, exercise counseling and education provided. BMI 30.0-30.9,adult 09/26/2020 12/19/19 Assessment & Plan (09/26/2020 10:10 AM CDT): Obesity is unchanged. Discussed the patient's BMI. The BMI is above average. BMI management plan is completed. BMI Follow-up includes: nutrition counseling, exercise counseling and education provided. BMI 31.0-31.9,adult 04/07/2020 09/27/19 Assessment & Plan (04/07/2020 8:01 PM DOUBLE SURFACE OPERATOR): Obesity is unchanged. Discussed the patient's BMI. The BMI is above average. BMI management plan is completed. BMI Follow-up includes: nutrition counseling, exercise counseling and education provided. Obesity (BMI 30-39.9) 03/18/20202020 Assessment & Plan (03/18/2020 10:58 AM DOUBLE SURFACE OPERATOR): Obesity is unchanged. Discussed the patient's BMI. The BMI is above average. BMI management plan is completed. BMI Follow-up includes: nutrition counseling, exercise counseling and education provided. Second degree burn of upper back 12/10/2019 04/07/2020 Assessment & Plan (12/10/2019 11:53 PM CDT): See burn Scald 12/10/2019 04/07/2020 Assessment & Plan (12/10/2019 11:53 PM CDT): See burn Generalized abdominal pain 11/11/2019 0 09/26/2020 Assessment & Plan (11/11/2019 10:39 AM CDT): Intermittent abdominal pain with dysuria, hematuria. CT abd/pelvis with/without contrast to further evaluate these persistent sxs. Dysuria 10/31/2019 09/26/2020 Assessment & Plan (11/11/2019 10:37 AM CDT): Recheck urine culture. If hematuria persists without infection, will need referral to Urology. Assessment & Plan (10/31/2019 9:19 PM CDT): Trace of blood in dip. Just finished antibiotic. Recommend to monitor. Pain over SI joint. May benefit from PT vs Pain management. Burn 10/31/2019 04/07/2020 Assessment & Plan (10/31/2019 9:21 PM CDT): To of the blisters of the burner big enough that I encouraged her to have a strain it today. So that the skin will stay intact and will read here. Currently it does not look as though there is any infection present. Patient agrees. Area was cleansed with Betadine x3. An 18 gauge needle was inserted into the dependent area of each of the blisters and drained without any problem. It was a clear serous drainage without odor. Patient tolerated well and appears as though the shah of the blister is just minute hear back down. The area was dressed with a nonadherent dressing and triple antibiotic ointment. Encouraged her to poultry picker non adherent dressing with Silvadene cream and monitor for signs and symptoms of infection. Reviewed heating pad safety. Annual physical exam 09/12/2019 024 Assessment & Plan (06/28/2022 10:23 AM CDT): Encouraged healthy lifestyle, good nutrition and exercise. Encouraged Calcium and Vitamin D and weight bearing exercise for bone health. Reviewed immunizations Reviewed age appropirate screenings. Assessment & Plan (09/26/2020 7:20 PM CDT): Encouraged healthy lifestyle, good nutrition and exercise. Encouraged Calcium and Vitamin D and weight bearing exercise for bone health. Reviewed immunizations Reviewed age appropirate screenings. Assessment & Plan (10/29/2019 10:00 AM CDT): Encouraged healthy lifestyle, good nutrition and exercise. Encouraged Calcium and Vitamin D and weight bearing exercise for bone health. Reviewed immunizations Reviewed age appropirate screenings. Breast cancer screening by mammogram 03/20/2019 09/26/2020 Assessment & Plan (04/07/2020 8:00 PM DOUBLE SURFACE OPERATOR): Mammogram order provided Colon cancer screening 03/20/201909/26 Assessment & Plan (10/29/2019 10:01 AM CDT): Delayed by KAMILAH but set up with dr. Guy Assessment & Plan (03/20/2019 12:02 AM DOUBLE SURFACE OPERATOR): Discussed options of repeat colonscopy vs Cologuard. Prefers cologuard BMI 30.0-30.9,adult 08/25/2018 03/18/19 21 Assessment & Plan (10/29/2019 10:00 AM CDT): Obesity is unchanged. Discussed the patient's BMI. The BMI is above average. BMI management plan is completed. BMI Follow-up includes: nutrition counseling, exercise counseling and education provided. Assessment & Plan (03/20/2019 12:00 AM DOUBLE SURFACE OPERATOR): Obesity is unchanged. Discussed the patient's BMI. The BMI is above average. BMI management plan is completed. BMI Follow-up includes: nutrition counseling, exercise counseling and education provided. Assessment & Plan (08/25/2018 1:32 PM CDT): BMI Follow-up includes: Discussed diet and exercising counseling. Obesity (BMI 30-39.9) 08/25/20182020 Assessment & Plan (10/29/2019 9:59 AM CDT): Obesity is unchanged. Discussed the patient's BMI. The BMI is above average. BMI management plan is completed. BMI Follow-up includes: nutrition counseling, exercise counseling and education provided. Assessment & Plan (03/19/2019 11:59 PM DOUBLE SURFACE OPERATOR): Obesity is unchanged. Discussed the patient's BMI. The BMI is above average. BMI management plan is completed. BMI Follow-up includes: nutrition counseling, exercise counseling and education provided. Assessment & Plan (08/25/2018 1:32 PM CDT): BMI Follow-up includes: Discussed diet and exercising counseling. Hypertension associated with diabetes 08/25/2018 08/27/2018 Cigarette smoker 08/25/2018 12/10/2022 Assessment & Plan (08/08/2022 4:24 PM CDT): Encouraged smoking cessation. Discussed 3 minutes. Reviewed options for assistance with cessation. Reviewed senior care sequela associated with smoking. Pt declines assistance at this time but may contact the office at anytime for further help as they desire. Assessment & Plan (08/04/2022 11:57 AM CDT): Encouraged smoking cessation. Discussed 3 minutes. Reviewed options for assistance with cessation. Reviewed cut in worker sequela associated with smoking. Pt declines assistance at this time but may contact the office at anytime for further help as they desire. Assessment & Plan (06/28/2022 10:23 AM CDT): Encouraged smoking cessation. Discussed 3 minutes. Reviewed options for assistance with cessation. Reviewed cut in worker sequela associated with smoking. Pt declines assistance at this time but may contact the office at anytime for further help as they desire. Due for low-dose CT. Will place order Assessment & Plan (02/08/2021 11:42 PM DOUBLE SURFACE OPERATOR): Encouraged smoking cessation. Discussed 3 minutes. Reviewed options for assistance with cessation. Reviewed cut in worker sequela associated with smoking. Pt declines assistance at this time but may contact the office at anytime for further help as they desire. Assessment & Plan (09/26/2020 7:20 PM CDT): Encouraged smoking cessation. Discussed 3 minutes. Reviewed options for assistance with cessation. Reviewed senior care sequela associated with smoking. Pt declines assistance at this time but may contact the office at anytime for further help as they desire. Assessment & Plan (04/07/2020 7:58 PM DOUBLE SURFACE OPERATOR): Encouraged smoking cessation. Discussed 3 minutes. Reviewed options for assistance with cessation. Reviewed senior care sequela associated with smoking. Pt declines assistance at this time but may contact the office at anytime for further help as they desire. Assessment & Plan (10/29/2019 10:00 AM CDT): Encouraged smoking cessation. Discussed 3 minutes. Reviewed options for assistance with cessation. Reviewed cut in worker sequela associated with smoking. Pt declines assistance at this time but may contact the office at anytime for further help as they desire. Assessment & Plan (03/20/2019 12:00 AM DOUBLE SURFACE OPERATOR): Encouraged smoking cessation. Discussed 3 minutes. Reviewed options for assistance with cessation. Reviewed cut in worker sequela associated with smoking. Pt declines assistance at this time but may contact the office at anytime for further help as they desire. Assessment & Plan (08/27/2018 6:46 PM CDT): Encouraged smoking cessation. Discussed approx 3 minutes. Pt is not interested in cessation Annual physical exam 08/25/2018 020 Assessment & Plan (08/27/2018 6:45 PM CDT): Encouraged healthy lifestyle, good nutrition and exercise. Encouraged Calcium and Vitamin D and weight bearing exercise for bone health. Reviewed immunizations Reviewed age appropirate screenings. Breast cancer screening 08/25/201803/02 Assessment & Plan (03/20/2019 12:00 AM DOUBLE SURFACE OPERATOR): Mammogram order provided Assessment & Plan (08/27/2018 6:45 PM CDT): Mammogram order provided Encounters Date Type Department Care Team Description 05/01/2024 Nurse Triage [address] [place] [phone] Fátima Lott PA 04/28/2024 Results Follow-Up [address] [place] [phone] Fátima Lott PA 04/26/2024 10:30 AM DOUBLE SURFACE OPERATOR Office Visit [address] [phone] Fátima Lott PA BMI 31.0-31.9,adult (Primary Dx); Breast cancer screening by mammogram; Menopause; Cigarette smoker; Type 2 diabetes mellitus with hyperlipidemia (HCC); Iron deficiency anemia, unspecified iron deficiency anemia type 03/20/2024 11:00 AM DOUBLE SURFACE OPERATOR Office Visit [facility] Hand Surgery [address] [place] [phone] Zenaida Garcia PA Closed nondisplaced fracture of distal phalanx of right thumb with routine healing, subsequent encounter (Primary Dx); Fracture follow-up 03/20/2024 10:56 AM DOUBLE SURFACE OPERATOR - 03/20/2024 11:59 PM DOUBLE SURFACE OPERATOR Hospital Encounter [facility] MOB 1 DIAG IMG [address] [place] [phone] Closed nondisplaced fracture of distal phalanx of right thumb with routine healing, subsequent encounter Discharge Disposition: Discharge to home or self care 03/07/[address] [phone] Fátima Lott PA 02/29/2024 1:30 PM DOUBLE SURFACE OPERATOR Telemedicine [address] [phone] Leigh Gregory, SOL Viral upper respiratory tract infection (Primary Dx) 02/29/2024 Nurse Triage [address] [place] [phone] Fátima Lott PA 02/28/2024 8:45 AM DOUBLE SURFACE OPERATOR Office Visit [facility] Hand Surgery [address] [place] [phone] Zenaida Garcia PA Thumb pain, right (Primary Dx); Fracture follow-up 02/28/2024 7:45 AM DOUBLE SURFACE OPERATOR - 02/28/2024 11:59 PM DOUBLE SURFACE OPERATOR Hospital Encounter [facility] MOB 1 DIAG IMG [address] [place] [phone] Thumb pain, right Discharge Disposition: Discharge to home or self care 02/14/2024 9:30 AM DOUBLE SURFACE OPERATOR Office Visit [facility] Hand Surgery [address] [place] [phone] Kelsy Randhawa MD Closed nondisplaced fracture of distal phalanx of right thumb with routine healing, subsequent encounter (Primary Dx); Thumb pain, right 02/14/2024 9:17 AM DOUBLE SURFACE OPERATOR - 02/14/2024 11:59 PM DOUBLE SURFACE OPERATOR Hospital Encounter [facility] MOB 1 DIAG IMG [address] [place] [phone] Thumb pain, right Discharge Disposition: Discharge to home or self care 02/08/[address] [place] [phone] Fátima Lott PA Medical Question/Miscellaneou s 02/03/2024 2:00 PM DOUBLE SURFACE OPERATOR Office Visit [address] [place] [phone] Fátima Lott PA Closed nondisplaced fracture of distal phalanx of right thumb with routine healing, subsequent encounter (Primary Dx); Obesity (BMI 30.0-34.9); BMI 31.0-31.9,adult from Last 3 Months Immunizations Immunization Administration Dates Next Due Influenza, Quadrivalent, Hig h Dose, Preservative Free, Intrr 12/10/2022,01/11/2022 Influenza, Unspecified 01/11/2022,2020,12/04/2019,12/15,12/15/2013,12/19/2011 Pfizer SARS-CoV-2 Monovalent Vaccination (12+ Yrs) PURPLE 11/28/2021,11/27/2020,05/21/2020,04/30 Pneumococcal Conjugate PCV 13 01/29/2021 Pneumococcal Polysaccharide PPV23 02/02/2022 Tdap 07/30/2018 Surgical History Surgery Date Site/Laterality Comments CHOLECYSTECTOMY HYSTERECTOMY COLONOSCOPY POLYPECTOMY WISDOM TOOTH EXTRACTION N/A pt has two natural teeh remaining on lower with partial and upper full denture Medical History Medical History Date Comments Colon polyp Hyperlipidemia Type 2 diabetes mellitus (HCC) Chronic obstructive pulmonar y disease (HCC) 12/19/2022 not SOB even with activity-- being monitored Motion sickness Family History Medical History Relation Name Comments Colon cancer Daughter Diabetes Father Heart disease Father Diabetes Mother Relation Name Status Comments Daughter Alive Father Mother Social History Tobacco Use Types Packs/Day Years Used Date Smoking Tobacco: Every Day Cigarettes 0.5 55.2 Started: 1970 Smokeless Tobacco: Never Tobacco Cessation:Ready to Q uit: Not Asked; Counseling Given: Not Answered Alcohol Use Standard Drinks/Week Comments Never 0 [...] on file Legal Sex Female 6:08 PM DOUBLE SURFACE OPERATOR Gender Identity Female 11/19/2020 3:11 PM CDT Sexual Orientation Not on file 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 Not on file Not on file Obstetrics History Last Filed Vital Signs Vital Sign Reading Time Taken Comments Blood Pressure 134/72 04/26/2024 10:50 AM DOUBLE SURFACE OPERATOR Pulse 102 04/26/2024 10:50 AM DOUBLE SURFACE OPERATOR Temperature 36.6 C (97.8 F) 04/26/2024 10:50 AM DOUBLE SURFACE OPERATOR Respiratory Rate 16 06/15/2023 10:25 AM CDT Oxygen Saturation 95% 04/26/2024 10:50 AM DOUBLE SURFACE OPERATOR Inhaled Oxygen Concentration - - Weight 81.4 kg (179 lb 6.4 oz) 04/26/2024 10:50 AM DOUBLE SURFACE OPERATOR Height 160 cm (5' 3 ) 04/26/2024 10:50 AM DOUBLE SURFACE OPERATOR Body Mass Index 31.78 04/26/2024 10:50 AM DOUBLE SURFACE OPERATOR Plan of Treatment Health Maintenance Due Date Last Done Comments Hepatitis C Screening 1955 Hepatitis B Screening 12/25/1973 Zoster Vaccine (1 of 2) 12/25/2005 Foot Exam 09/10/2020 09/11/2019, 08/25/2018 Dilated Eye Exam 07/29/2023 07/28/2022, , 03/14/2019, Additional history exists Osteoporosis Screening-Bone Density Scan 08/14/2023 08/13/2021 Covid-19 Vaccine (2023-04 5 season) 2024 12/15/2023, 02/02/2023, 11/28/2021, Additional history exists Breast Cancer Screening-Mammogram 06/29/2024 06/30/2023, 08/13/2021, 06/25/2020, Additional history exists Colon Cancer Screening-Colonoscopy 09/30/2024 09/30/2021, 02/20/2013 Hemoglobin A1C 10/08/2024 04/10/2024, 08/0 07/2023, 06/03/2023, Additional history exists Well Visit 65+ 10/25/2024 10/26/2023, 04/01, 06/10/2022, Additional history exists Lung Cancer Screening 11/07/2024 11/08/2023 , 10/16/2022, 06/23/2021, Additional history exists Albumin Creatinine Ratio, Urine 04/10/2025 04/10/2024, 10/05/2023, 10/16/2022 Lipid Panel 04/10/2025 04/10/2024, 08/0 07/2023, 10/16/2022, Additional history exists eGFR 04/10/2025 04/10/2024, 08/0 07/2023, 06/03/2023, Additional history exists Depression Screening 04/26/2025 04/26/2024, 02/03/2024, 10/26/2023, Additional history exists Fall Risk Assessment 04/26/2025 04/26/2024, 06/15/2023, 04/12/2023, Additional history exists DTaP/Tdap/Td Vaccine (2 - Td or Tdap) 07/30/2028 07/30/2018 Colon Cancer Screening-DNA Stool Discontinued 10/01/19, 02/20/2013 Pneumococcal vaccine 65+ Completed 02/02/2022, 1203/2020 Influenza Vaccine Completed 12/15/2023, , 01/11/2022, Additional history exists Procedures Procedure Name Priority Date/Time Associated Diagnosis Comments IRON PROFILE W/ IBC Routine 04/10/2024 9 :48 AM DOUBLE SURFACE OPERATOR TSH Routine 04/10/2024 9:48 AM DOUBLE SURFACE OPERATOR Fatigue, unspecified type LIPID PANEL Routine 04/10/2024 9:48 AM DOUBLE SURFACE OPERATOR Type 2 diabetes mellitus with hyperlipidemia (HCC) HEMOGLOBIN A1C Routine 04/10/2024 9:48 AM DOUBLE SURFACE OPERATOR Type 2 diabetes mellitus with hyperlipidemia (HCC) COMPREHENSIVE METABOLIC PANEL Routine 04/10/2024 9:48 AM DOUBLE SURFACE OPERATOR Type 2 diabetes mellitus with hyperlipidemia (HCC) CBC WITH AUTO DIFFERENTIAL Routine 04/10/2024 9:48 AM DOUBLE SURFACE OPERATOR Type 2 diabetes mellitus with hyperlipidemia (HCC) ALBUMIN CREATININE RATIO, URINE Routine 04/10/2024 9:48 AM DOUBLE SURFACE OPERATOR Type 2 diabetes mellitus with hyperlipidemia (HCC) XR FINGER THUMB RIGHT Schedule Routine, Read Routine (OP Routine) 03/20/2024 11:06 AM DOUBLE SURFACE OPERATOR Closed nondisplaced fracture of distal phalanx of right thumb with routine healing, subsequent encounter XR FINGER THUMB RIGHT Schedule Routine, Read Routine (OP Routine) 02/28/2024 8:34 AM DOUBLE SURFACE OPERATOR Thumb pain, right XR FINGER THUMB RIGHT Schedule Routine, Read Routine (OP Routine) 02/14/2024 9:24 AM DOUBLE SURFACE OPERATOR Thumb pain, right CT LUNG CANCER SCREENING Schedule Routine, Read Routine (OP Routine) 11/08/2023 3:22 PM CDT Cigarette smoker SCREENING MAMMOGRAM BILATERAL W [place] Schedule Routine, Read Routine (OP Routine) 06/30/2023 Breast cancer screening by mammogram HM DIABETES EYE EXAM Routine 07/28/2022 COLONOSCOPY Routine 09/30/2021 HM DEXA SCAN Routine 08/13/2021 from Last 3 Months or Most Recently Relevant to Health Maintenance Results * (ABNORMAL) Iron profile w/ IBC (04/10/2024 9:48 AM DOUBLE SURFACE OPERATOR) Iron 42(L) 45 - 160 mcg/dL [facility] TIBC 427 250 - 450 mcg/dL (calc) [facility] Iron saturation 10(L) 16 - 45 % (calc) [facility] 04/10/2024 9:48 AM DOUBLE SURFACE OPERATOR 04/10/2024 9:49 AM DOUBLE SURFACE OPERATOR Narrative [facility] - 04/11/2024 9:01 AM DOUBLE SURFACE OPERATOR FASTING:YES FASTING: YES us Fátima TAYLOR LAB BLOOD ORDERABLES Final Result [facility] [address] [place] [address] * (ABNORMAL) CBC with auto differential (04/10/2024 9:48 AM DOUBLE SURFACE OPERATOR) [facility] WBC 9.3 3.8 - 10.8 Thousand/u L [facility] RBC, POC 4.90 3.80 - 5.10 Million/uL [facility] Hgb 12.6 11.7 - 15.5 g/dL [facility] Hct 41.2 35.0 - 45.0 % [facility] MCV 84.1 80.0 - 100.0 fL [facility] MCH 25.7(L) 27.0 - 33.0 pg [facility] MCHC 30.6(L) 32.0 - 36.0 g/dL [facility] Comment: For adults, a slight decrease in the calculated MCHC value (in the range of 30 to 32 g/dL) is most likely not clinically significant; however, it should be interpreted with caution in correlation with other red cell parameters and the patient's clinical condition. Rdw 14.7 11.0 - 15.0 % [facility] Platelets 220 140 - 400 Thousand/u L [facility] MPV 11.3 7.5 - 12.5 fL [facility] Neutrophils, abs 5,366 1,500 - 7,800 cells/uL [facility] Lymphocytes, abs 3,078 850 - 3,900 cells/uL [facility] Monocyte abs 660 200 - 950 cells/uL [facility] Eosinophils, abs 158 15 - 500 cells/uL [facility] Basophils, abs 37 0 - 200 cells/uL [facility] Neutrophils 57.7 % [facility] Lymphocyte pct 33.1 % [facility] Monocytes 7.1 % [facility] Eosinophils 1.7 % [facility] Basophils 0.4 % [facility] Blood 04/10/2024 9:48 AM DOUBLE SURFACE OPERATOR 04/10/2024 9:49 AM DOUBLE SURFACE OPERATOR Narrative [facility] - 04/11/2024 9:01 AM DOUBLE SURFACE OPERATOR FASTING:YES FASTING: YES Fátima TAYLOR LAB BLOOD ORDERABLES Final Result Performing Organization Address [facility]/ZIP Co de Phone Number [facility] [address] [place] [address] * Albumin Creatinine Ratio, Urine (04/10/2024 9:48 AM DOUBLE SURFACE OPERATOR) Creatinine, ur 193 20 - 275 mg/dL [facility] Microalbumin, ur 5.5 See Note: mg/dL [facility] Comment: Reference Range: Reference Range Not established Microalbumin/creat ratio 28 <30 mg/g creat [facility] Comment: The ADA defines abnormalities in albumin excretion as follows: Albuminuria Category Result (mg/g creatinine) Normal to Mildly increased <30 Moderately increased 30-299 Severely increased > OR = 300 The ADA recommends that at least two of three specimens collected within a 3-6 month period be abnormal before considering a patient to be within a diagnostic category. Urine 04/10/2024 9:48 AM DOUBLE SURFACE OPERATOR 04/10/2024 9:49 AM DOUBLE SURFACE OPERATOR Narrative [facility] - 04/11/2024 9:01 AM DOUBLE SURFACE OPERATOR FASTING:YES FASTING: YES Fátima TAYLOR LAB URINE ORDERABLES Final Result Performing Organization Address [facility] Co de Phone Number [facility] [address] [place] [address] * TSH (04/10/2024 9:48 AM DOUBLE SURFACE OPERATOR) TSH 2.02 0.40 - 4.50 mIU/L [facility] Blood 04/10/2024 9:48 AM DOUBLE SURFACE OPERATOR 04/10/2024 9:49 AM DOUBLE SURFACE OPERATOR Narrative [facility] - 04/11/2024 9:01 AM DOUBLE SURFACE OPERATOR FASTING:YES FASTING: YES Fátima TAYLOR LAB BLOOD ORDERABLES Final Result Performing Organization Address [facility]/ZIP Co de Phone Number [facility] [address] [facility] [place] [address] * (ABNORMAL) Hemoglobin A1c (04/10/2024 9:48 AM DOUBLE SURFACE OPERATOR) Hgb A1C 7.0(H) <5.7 % of total Hgb [facility] Comment: For someone without known diabetes, a hemoglobin A1c value of 6.5% or greater indicates that they may have diabetes and this should be confirmed with a follow-up test. For someone with known diabetes, a value <7% indicates that their diabetes is well controlled and a value greater than or equal to 7% indicates suboptimal control. A1c targets should be individualized based on duration of diabetes, age, comorbid conditions, and other considerations. Currently, no consensus exists regarding use of hemoglobin A1c for diagnosis of diabetes for children. Blood 04/10/2024 9:48 AM DOUBLE SURFACE OPERATOR 04/10/2024 9:49 AM DOUBLE SURFACE OPERATOR Narrative [facility] - 04/11/2024 9:01 AM DOUBLE SURFACE OPERATOR FASTING:YES FASTING: YES us Fátima TAYLOR LAB BLOOD ORDERABLES Final Result Performing Organization Address [facility] Co de Phone Number [facility] [address] [place] [address] * (ABNORMAL) Lipid panel (04/10/2024 9:48 AM DOUBLE SURFACE OPERATOR) Cholesterol 118 <200 mg/dL [facility] HDL 60 > OR = 50 mg/dL [facility] Triglycerides 158(H) <150 mg/dL [facility] LDL 34 mg/dL (calc) [facility] Comment: Reference range: <100 Desirable range <100 mg/dL for primary prevention; <70 mg/dL for patients with CHD or diabetic patients with > or = 2 CHD risk factors. LDL-C is now calculated using the Shelton calculation, which is a validated novel method providing better accuracy than the Friedewald equation in the estimation of LDL-C. Jerrell ROSENBAUM et al. KYLIE. 2013;310(19): 8674-7306 (http://education.[facility].115 network disks/faq/IUB512) Chol/HDL ratio 2.0 <5.0 (calc) [facility] Non-HDL, (LDL+VLDL) 58 <130 mg/dL (calc) [facility] Comment: For patients with diabetes plus 1 major ASCVD risk factor, treating to a non-HDL-C goal of <100 mg/dL (LDL-C of <70 mg/dL) is considered a therapeutic option. Blood 04/10/2024 9:48 AM DOUBLE SURFACE OPERATOR 04/10/2024 9:49 AM DOUBLE SURFACE OPERATOR Narrative [facility] - 04/11/2024 9:01 AM DOUBLE SURFACE OPERATOR FASTING:YES FASTING: YES Fátima TAYLOR LAB BLOOD ORDERABLES Final Result [facility] [address] [place] [address] * (ABNORMAL) Comprehensive metabolic panel (04/10/2024 9:48 AM DOUBLE SURFACE OPERATOR) Pathologist [facility] Glucose 128(H) 65 - 99 mg/dL [facility] Comment: Fasting reference interval For someone without known diabetes, a glucose value >125 mg/dL indicates that they may have diabetes and this should be confirmed with a follow-up test. BUN 8 7 - 25 mg/dL [facility] Creatinine 0.70 0.50 - 1.05 mg/dL [facility] eGFR 94 > OR = 60 mL/min/1.7 3m2 [facility] BUN/creat ratio SEE NOTE: 6 - 22 (calc) [facility] Comment: Not Reported: BUN and Creatinine are within reference range. Sodium 139 135 - 146 mmol/L [facility] Potassium, pl 4.2 3.5 - 5.3 mmol/L [facility] Chloride 106 98 - 110 mmol/L [facility] CO2 25 20 - 32 mmol/L [facility] Calcium 9.5 8.6 - 10.4 mg/dL [facility] Protein, sr 6.6 6.1 - 8.1 g/dL [facility] Albumin 4.2 3.6 - 5.1 g/dL [facility] GLOBULIN 2.4 1.9 - 3.7 g/dL (calc) [facility] Alb/glob ratio 1.8 1.0 - 2.5 (calc) [facility] Bilirubin, total 0.3 0.2 - 1.2 mg/dL [facility] Alk phos 84 37 - 153 U/L [facility] AST 12 10 - 35 U/L [facility] ALT (SGPT) 10 6 - 29 U/L [facility] Blood 04/10/2024 9:48 AM DOUBLE SURFACE OPERATOR 04/10/2024 9:49 AM DOUBLE SURFACE OPERATOR Narrative [facility] - 04/11/2024 9:01 AM DOUBLE SURFACE OPERATOR FASTING:YES FASTING: YES Fátima TAYLOR LAB BLOOD ORDERABLES Final Result [facility] [address] [place] [address] * XR Finger Thumb Right Minimum 2 Views (03/20/2024 11:06 AM DOUBLE SURFACE OPERATOR) Anatomical Region Laterality Modality Upper Extremities, Hand, Fingers Right Computed Radiography 03/20/2024 8:31 PM DOUBLE SURFACE OPERATOR Narrative 03/20/2024 8:59 PM DOUBLE SURFACE OPERATOR EXAM DESCRIPTION: XR FINGER THUMB RIGHT MINIMUM 2 VIEWS REASON FOR STUDY: pain Follow up exam, pain and swelling FINDINGS: Three views submitted with comparison 02/28/2024. There is a healing comminuted thumb distal phalanx fracture. Soft tissue swelling is present. 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 IMPRESSION: Healing comminuted right thumb distal phalanx fracture. THIS IS AN ELECTRONICALLY VERIFIED FINAL REPORT 03/20/2024 8:59 PM - Electronically signed by Yoel Muniz M.D. MF: JIM Report ID: [id number] Reading Location: [id number] Procedure Note Yoel Muniz MD - 03/20/2024 EXAM DESCRIPTION: XR FINGER THUMB RIGHT MINIMUM 2 VIEWS REASON FOR STUDY: pain Follow up exam, pain and swelling FINDINGS: Three views submitted with comparison 02/28/2024. There is a healing comminuted thumb distal phalanx fracture. Soft tissue swelling is present. 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 IMPRESSION: Healing comminuted right thumb distal phalanx fracture. THIS IS AN ELECTRONICALLY VERIFIED FINAL REPORT 03/20/2024 8:59 PM - Electronically signed by Yoel Muniz M.D. MF: JIM Report ID: [id number] Reading Location: [id number] Zenaida TAYLOR IMG XR PROCEDURES Final Result * XR Finger Thumb Right Minimum 2 Views (02/28/2024 8:34 AM DOUBLE SURFACE OPERATOR) Anatomical Region Laterality Modality Upper Extremities, Hand, Fingers Right Computed Radiography 02/28/2024 8:56 AM DOUBLE SURFACE OPERATOR Narrative 02/28/2024 9:03 AM DOUBLE SURFACE OPERATOR EXAM DESCRIPTION: XR FINGER THUMB RIGHT MINIMUM 2 VIEWS REASON FOR STUDY: pain Follow up exam, pain and swelling FINDINGS: Three views submitted with comparison 02/14/2024. Three views submitted with comparison 02/14/2024. Redemonstrated is a comminuted intra-articular fracture of the thumb distal phalanx base. Soft tissue swelling is present. There is mild basal thumb and 1st metacarpophalangeal joint osteoarthritis. IMPRESSION: Unchanged comminuted intra-articular fracture of the right thumb distal phalanx base. THIS IS AN ELECTRONICALLY VERIFIED FINAL REPORT 02/28/2024 9:03 AM - Electronically signed by Yoel Muniz M.D. MF: JIM Report ID: [id number] Reading Location: [id number] Procedure Note Yoel Muniz MD - 02/28/2024 EXAM DESCRIPTION: XR FINGER THUMB RIGHT MINIMUM 2 VIEWS REASON FOR STUDY: pain Follow up exam, pain and swelling FINDINGS: Three views submitted with comparison 02/14/2024. Three views submitted with comparison 02/14/2024. Redemonstrated is a comminuted intra-articular fracture of the thumbdistal phalanx base. Soft tissue swelling is present. There is mild basal thumband 1st metacarpophalangeal joint osteoarthritis. IMPRESSION: Unchanged comminuted intra-articular fracture of the right thumb distal phalanx base. THIS IS AN ELECTRONICALLY VERIFIED FINAL REPORT 02/28/2024 9:03 AM - Electronically signed by Yoel Muniz M.D. MF: JIM Report ID: [id number] Reading Location: [id number] Zenaida TAYLOR [facility] XR PROCEDURES Final Result * XR Finger Thumb Right Minimum 2 Views (02/14/2024 9:24 AM DOUBLE SURFACE OPERATOR) Anatomical Region Laterality Modality Upper Extremities, Hand, Fingers Right Computed Radiography 02/14/2024 1:54 PM DOUBLE SURFACE OPERATOR Narrative 02/14/2024 1:55 PM DOUBLE SURFACE OPERATOR EXAM DESCRIPTION: XR FINGER THUMB RIGHT MINIMUM 2 VIEWS REASON FOR STUDY: pain Injury 01/31/24, intermittent pain FINDINGS: Four views submitted with comparison 02/01/2024. Redemonstrated is a comminuted thumb distal phalanx fracture. Overall appearance is similar to prior exam. Soft tissue swelling is present. 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 IMPRESSION: Unchanged comminuted right thumb distal phalanx fracture. THIS IS AN ELECTRONICALLY VERIFIED FINAL REPORT 02/14/2024 1:55 PM - Electronically signed by Yoel Muniz M.D. MF: JIM Report ID: [id number] Reading Location: [id number] Procedure Note Yoel Muniz MD - 02/14/2024 EXAM DESCRIPTION: XR FINGER THUMB RIGHT MINIMUM 2 VIEWS REASON FOR STUDY: pain Injury 01/31/24, intermittent pain FINDINGS: Four views submitted with comparison 02/01/2024. Redemonstrated is a comminuted thumb distal phalanx fracture. Overall appearance is similar to prior exam. Soft tissue swelling is present.There is polyarticular 1st ray osteoarthritis. IMPRESSION: Unchanged comminuted right thumb distal phalanx fracture. THIS IS AN ELECTRONICALLY VERIFIED FINAL REPORT 02/14/2024 1:55 PM - Electronically signed by Yoel Muniz M.D. MF: JIM Report ID: [id number] Reading Location: [place] [address] Kelsy Randhawa MD IMG XR PROCEDURES Final R esult * CT Lung Cancer Screening (11/08/2023 3:22 PM CDT) Anatomical Region Laterality Modality Chest N/A Computed Tomogra phy Fátima TAYLOR IMG CT PROCEDURES Final Re sult * Screening Mammogram Bilateral [place] (06/30/2023) Anatomical Region Laterality Modality Breast Bilateral Mammography Impressions 06/30/2023 Recommend routine screening mammography in one year. BI-RADS Category 1: Negative Result [facility] Fátima TAYLOR IMG MAMMO PROCEDURES Final Result * DIABETES EYE EXAM (07/28/2022) Historical Provider HEALTH MAINTENANCE Edited Result - Final * Colonoscopy (09/30/2021) Anatomical Region Laterality Modality Other Historical Provider ENDOSCOPY PROCEDURES Deepa l Result * DEXA SCAN (08/13/2021) Historical Provider HEALTH MAINTENANCE Final Result from Last 3 Months or Most Recently Relevant to Health Maintenance [place] [address] [facility] MEDICARE [facility] AETNA MEDICARE [facility] Care Teams Lens Generating Machine Tender Relationship Specialty Start Date End Date Fátima Lott [place] [address] [address] PCP - General Internal Medicine 06/29/18 [place] [address] [place] [id number] Consulting Physician General Surgery 06/15/23
--- OUTSIDE RECORDS SUMMARY | 2024-05-03 15:43 | XMS_ITS | Referral Summary ---
Author Organization [facility] Address [address] [place] [phone] Care Team Providers Care Cell Assembly Pinner Name Role Phone Fátima Lott Primary Care Provider [phone]- [phone] Sukhdeep Sims MD Unavailable Encounters Date Type Department Care Team Description 05/01/2024 Nurse Triage [address] [place] [phone] Fátima Lott PA 04/28/2024 Results Follow-Up [address] [place] [phone] Fátima Lott PA 04/26/2024 10:30 AM [facility] Office Visit [address] [place] [phone] Fátima Lott PA BMI 31.0-31.9,adult (Primary Dx); Breast cancer screening by mammogram; Menopause; Cigarette smoker; Type 2 diabetes mellitus with hyperlipidemia (HCC); Iron deficiency anemia, unspecified iron deficiency anemia type 03/20/2024 10:56 AM [facility] - 03/20/2024 11:59 PM [facility] Hospital Encounter [facility] 1 DIAG IM [address] [place] [address] Closed nondisplaced fracture of distal phalanx of right thumb with routine healing, subsequent encounter Discharge Disposition: Discharge to home or self care 03/20/2024 11:00 AM [facility] Office Visit [facility] [address] [place] [phone] Zenaida Garcia, PA Closed nondisplaced fracture of distal phalanx of right thumb with routine healing, subsequent encounter (Primary Dx); Fracture follow-up 03/07/[address] [place] [phone] Fátima Lott PA 02/29/2024 1:30 PM [facility] Telemedicine [address] [phone] Leigh Gregory NP Viral upper respiratory tract infection (Primary Dx) 02/29/2024 Nurse Triage [address] [place] [phone] Fátima Lott PA 02/28/2024 7:45 AM [facility] - 02/28/2024 11:59 PM [facility] [employer] Hospital Encounter [facility] 1 DIAG IMG [address] [place] [phone] Thumb pain, right Discharge Disposition: Discharge to home or self care 02/28/2024 8:45 AM [facility] Office Visit [facility] [address] [place] [phone] Zenaida Garcia PA Thumb pain, right (Primary Dx); Fracture follow-up 02/14/2024 9:17 AM [facility] - 02/14/2024 11:59 PM [facility] Hospital Encounter [facility] 1 DIAG IMG [address] [place] [phone] Thumb pain, right Discharge Disposition: Discharge to home or self care 02/14/2024 9:30 AM [facility] Office Visit [facility] [address] [place] [phone] Kelsy Randhawa MD Closed nondisplaced fracture of distal phalanx of right thumb with routine healing, subsequent encounter (Primary Dx); Thumb pain, right 02/08/2024 Telephone [facility] [address] [facility] [address] [place] [phone] Fátima Lott PA Medical Question/Miscellaneou s 02/03/2024 2:00 PM [facility] Office Visit [facility] [address] [facility] [address] [place] [phone] Fátima Lott PA Closed nondisplaced fracture of distal phalanx of right thumb with routine healing, subsequent encounter (Primary Dx); Obesity (BMI 30.0-34.9); BMI 31.0-31.9,adult from Last 3 Months Allergies No known active allergies Medications LORazepam [...] Date Viral upper respiratory tract infection 02/29/20 Assessment & Plan (02/29/2024 1:38 PM [facility]): Recommend fluids, rest, humidification if needed. She [...] 02/08/2024 Assessment & Plan (02/08/2024 3:04 PM [facility]): Patient has a nondisplaced fracture of the distal phalanx of the right thumb. She is currently immobilized in a splint after being seen in the urgent care. Continue with Tylenol or Motrin as tolerated. Ice to the area. Will make referral to hand for further evaluation BMI 31.0-31.9,adult 02/03/2024 Assessment & Plan (04/26/2024 10:56 AM [facility]): BMI Follow-up includes: Discussed diet and exercising counseling. Assessment & Plan (02/03/2024 2:30 PM [facility]): Discussed the patient's BMI. The BMI is above average. BMI management plan is completed. BMI Follow-up includes: nutrition counseling, exercise counseling and education provided. Obesity (BMI 30.0-34.9) 11/01/2023 Assessment & Plan (04/26/2024 10:56 AM [facility]): BMI Follow-up includes: Discussed diet and exercising counseling. Assessment & Plan (02/03/2024 2:30 PM [facility]): Discussed the patient's BMI. The BMI is [...] of continued A1c control to minimize the intermediate effects of diabetes. Bring accuchecks to office [...] 04/20/2023 Assessment & Plan (04/20/2023 2:18 PM [facility]): This is a significant, separately identifiable problem [...] 01/14/2023 Assessment & Plan (01/14/2023 2:55 PM [facility]): Rashes consistent with tinea. Keep area clean and dry. May need to use a cool hair fish drier to the area prior to applying the [...] back Assessment & Plan (04/20/2023 2:16 PM [facility]): Strongly encouraged complete smoking cessation. She is [...] Reviewed options for assistance with cessation. Reviewed intermediate sequela associated with smoking. Pt declines assistance at this time but may contact the office at anytime for further help as they desire. Assessment & Plan (04/20/2023 2:17 PM [facility] [employer]): Encouraged smoking cessation. Discussed 3 minutes. She is on Wellbutrin and tolerating the 150 well. Willing to increase to the 300 to see if this helps with cessation effort even more. Will increase to 300. She may take 2 of the 150 XL until they are exhausted. Assessment & Plan (01/14/2023 2:53 PM [employer] [employer]): Pt desires assistance with cessation. Discussed options [...] Reviewed options for assistance with cessation. Reviewed intermediate sequela associated with smoking. Pt declines assistance [...] re-evaluate Assessment & Plan (04/20/2023 2:17 PM [facility]): Probably multifactorial. Check labs and followup to re-evaluate Assessment & Plan (06/28/2022 10:23 AM CDT): Probably multifactorial. Check labs and followup to re-evaluate Assessment & Plan (07/21/2021 10:44 AM CDT): Probably multifactorial. Check labs and followup to re-evaluate Adhesive capsulitis of left shoulder 04/10/2021 Cough 03/27/2021 Assessment & Plan (01/14/2023 2:52 PM [facility]): Patient has had a cough for the [...] had a persistent cough that started around . Finished a course of antibiotics and a [...] concerns. Assessment & Plan (03/27/2021 5:52 PM [facility]): Will send patient to [place] for Covid-19 testing. The patient was advised [...] 02/10/2021 Assessment & Plan (02/10/2021 8:38 AM [facility]): This is a significant, separately identifiable problem [...] 02/08/2021 Assessment & Plan (02/10/2021 8:38 AM [facility]): This is a significant, separately identifiable problem that was evaluated and managed on the same day as the wellness exam Persistent left shoulder pain. Has not had full relief with physical therapy. Using Mobic p.r.n.. Will make refer to ortho for further evaluation Colon cancer screening 02/08/2021 Assessment & Plan (02/10/2021 8:36 AM [facility]): Patient past due for colon cancer screening [...] 03/20/2019 Assessment & Plan (03/20/2019 12:02 AM [facility]): MCV was a little low and she has noted increased ice eating. AVELINO-inhibitor cough 03/08/2019 Lung nodule 03/08/2019 Overview (02/08/2021): 03/2019 - LDCT -- benign changes. Repeat 03/202004/04/2020 LDCT -- benign changes. Repeat 04/2021 Assessment & Plan (02/08/2021 11:44 PM [facility]): Next low-dose CT due after April 05, 2021. Will place order to be scheduled after April 05 Assessment & Plan (04/07/2020 7:57 PM [facility]): LDCT due for routine screeing. Will schedule. Assessment & Plan (03/19/2019 11:59 PM [facility]): Need to repeat LDCT from 08/2016 - which showed benign changes/followup 1 year. Controlled type 2 diabetes steve boggs without complication, without long-term current use of insulin 08/25/2018 Assessment & Plan (11/01/2023 7:44 PM CDT): Stressed importance of continued A1c control to minimize the terminal block assembler effects of diabetes. Bring accuchecks to office when instructed to do so. Check A1c about every 3-6 months. Take medication as prescribed. Get annual eye exam. Encouraged AVELINO/Statin if able to tolerate. Encouraged weight control and encouraged diabetic diet and exercise. Continue metformin 1 g daily. A1c is at 7 Assessment & Plan (04/20/2023 2:17 PM [facility]): Stressed importance of continued A1c control to minimize the intermediate effects of diabetes. Bring accuchecks to office when instructed to do so. Check A1c about every 3-6 months. Take medication as prescribed. Get annual eye exam. Encouraged AVELINO/Statin if able to tolerate. Encouraged weight control and encouraged diabetic diet and exercise. Continue metformin 1 g daily Assessment & Plan (12/19/2022 12:06 PM CDT): Stressed importance of continued A1c control to minimize the intermediate effects of diabetes. Bring accuchecks to office [...] of continued A1c control to minimize the intermediate effects of diabetes. Bring accuchecks to office when instructed to do so. Check A1c about every 3-6 months. Take medication as prescribed. Get annual eye exam. Encouraged AVELINO/Statin if able to tolerate. Encouraged weight control and encouraged diabetic diet and exercise. Continue metformin 1 g daily Assessment & Plan (02/15/2022 10:21 AM [facility]): Stressed importance of continued A1c control to minimize the terminal block assembler effects of diabetes. Bring accuchecks to office [...] of continued A1c control to minimize the intermediate effects of diabetes. Bring accuchecks to office [...] point. Assessment & Plan (02/08/2021 11:37 PM [facility]): Stressed importance of continued A1c control to minimize the terminal block assembler effects of diabetes. Bring accuchecks to office when instructed to do so. Check A1c about every 3-6 months. Take medication as prescribed. Get annual eye exam. Encouraged AVELINO/Statin if able to tolerate. Encouraged weight control and encouraged diabetic diet and exercise. Continue metformin check labs Assessment & Plan (09/26/2020 7:18 PM CDT): Stressed importance of continued A1c control to minimize the terminal block assembler effects of diabetes. Bring accuchecks to office when instructed to do so. Check A1c about every 3-6 months. Take medication as prescribed. Get annual eye exam. Encouraged AVELINO/Statin if able to tolerate. Encouraged weight control and encouraged diabetic diet and exercise. Continue metformin 1gm qd Assessment & Plan (04/07/2020 7:57 PM [facility]): Stressed importance of continued A1c control to minimize the terminal block assembler effects of diabetes. Bring accuchecks to office [...] of continued A1c control to minimize the terminal block assembler effects of diabetes. Bring accuchecks to office when instructed to do so. Check A1c about every 3-6 months. Take medication as prescribed. Get annual eye exam. Encouraged AVELNIO/Statin if able to tolerate. Encouraged weight control and encouraged diabetic diet and exercise. Assessment & Plan (03/20/2019 12:00 AM [facility]): Stressed importance of continued A1c control to minimize the intermediate effects of diabetes. Bring accuchecks to office [...] of continued A1c control to minimize the terminal block assembler effects of diabetes. Bring accuchecks to office [...] 20 Assessment & Plan (04/20/2023 2:15 PM [facility]): Stressed importance of continued A1c control to minimize the intermediate effects of diabetes. Bring accuchecks to office [...] needed. Assessment & Plan (02/15/2022 10:21 AM [facility]): Encouraged patient to follow low fat/low chol [...] simvastatin Assessment & Plan (02/08/2021 11:42 PM [facility]): Encouraged patient to follow fat/low chol diet like the Mediterranean diet. Increase good fats in the diet. Increase exercise. Monitor labs as needed. Continue simvastatin Assessment & Plan (09/26/2020 7:19 PM CDT): Encouraged patient to follow fat/low chol diet like the Mediterranean diet. Increase good fats in the diet. Increase exercise. Monitor labs as needed. Continue statin Assessment & Plan (04/07/2020 7:57 PM [facility]): Encouraged patient to follow fat/low chol diet like the Mediterranean diet. Increase good fats in the diet. Increase exercise. Monitor labs as needed. Continue statin Assessment & Plan (10/29/2019 10:00 AM CDT): Encouraged patient to continue low fat/low chol diet. Continue exercise. Increase good fats in the diet. Monitor labs as needed. Continue statin Assessment & Plan (03/20/2019 12:00 AM [facility]): Encouraged patient to continue low fat/low chol [...] daily Assessment & Plan (02/15/2022 10:21 AM [facility]): Continue trazodone 50 Assessment & Plan (07/21/2021 10:44 AM CDT): Continue trazodone Assessment & Plan (02/08/2021 11:42 PM [facility]): Continue trazodone Assessment & Plan (09/26/2020 7:20 PM CDT): Continue Trazodone Assessment & Plan (04/07/2020 7:57 PM [facility]): Continue trazodone Assessment & Plan (10/29/2019 10:00 AM CDT): Stable with trazodone Assessment & Plan (03/20/2019 12:01 AM [facility]): Continue trazodone prn Assessment & Plan (08/27/2018 6:46 PM CDT): Stable with Trazodone Other fatigue 08/25/2018 Assessment & Plan (03/20/2019 12:01 AM [facility]): Probably multifactorial. Check labs and followup to re-evaluate Assessment & Plan (08/27/2018 6:46 PM CDT): Probably multifactorial. Check labs and followup to re-evaluate Resolved Problems Problem Noted Date Diagnosed Date Resolved Date Positive depression screening 10/26/2023 11/01/2023 Medicare annual wellness visit, subsequent 04/20/2023 11/01/2023 Assessment & Plan (04/20/2023 2:17 PM [facility]): Encouraged healthy lifestyle, good nutrition and exercise. Encouraged Calcium and Vitamin D and weight bearing exercise for bone health. Reviewed immunizations. Reviewed age appropirate screenings. Medicare Wellness Documentation is completed within the chart Mass of skin of shoulder, right 04/20/2023 04/20/2023 Obesity (BMI 30-39.9) 01/14/20232023 Assessment & Plan (04/20/2023 2:17 PM [facility]): Discussed the patient's BMI. The BMI is above average. BMI management plan is completed. BMI Follow-up includes: nutrition counseling, exercise counseling and education provided. Assessment & Plan (01/14/2023 2:25 PM [facility]): Discussed the patient's BMI. The BMI is [...] provided. Assessment & Plan (04/20/2023 2:16 PM [facility]): Discussed the patient's BMI. The BMI is above average. BMI management plan is completed. BMI Follow-up includes: nutrition counseling, exercise counseling and education provided. Assessment & Plan (01/14/2023 2:24 PM [facility]): Discussed the patient's BMI. The BMI is [...] 06/28/2022 Assessment & Plan (02/15/2022 10:22 AM [facility]): Encouraged healthy lifestyle, good nutrition and exercise. Encouraged Calcium and Vitamin D and weight bearing exercise for bone health. Reviewed immunizations. Reviewed age appropirate screenings. Medicare Wellness Documentation is completed within the chart Need for 23-polyvalent pneum ococcal polysaccharide vaccine 02/02/2022 06/28/2022 Assessment & Plan (02/15/2022 10:22 AM [facility]): Pneumonia 23 updated in the office today Obesity (BMI 30-39.9) 07/02/20212022 Assessment & Plan (02/02/2022 9:57 AM [facility]): Discussed the patient's BMI. The BMI is [...] 23 Assessment & Plan (02/02/2022 9:58 AM [facility]): Discussed the patient's BMI. The BMI is [...] 02/02/2022 Assessment & Plan (02/08/2021 11:44 PM [facility]): Encouraged healthy lifestyle, good nutrition and exercise. Encouraged Calcium and Vitamin D and weight bearing exercise for bone health. Reviewed immunizations. Reviewed age appropirate screenings. Medicare Wellness Documentation is completed within the chart Need for vaccination with 13 -polyvalent pneumococcal conjugate vaccine 02/08/2021 Assessment & Plan (02/08/2021 11:45 PM [facility]): Pneumonia 13 updated in the office today Obesity (BMI 30-39.9) 01/29/20212021 Assessment & Plan (01/29/2021 11:09 AM [facility]): Obesity is unchanged. Discussed the patient's BMI. The BMI is above average. BMI management plan is completed. BMI Follow-up includes: nutrition counseling, exercise counseling and education provided. BMI 31.0-31.9,adult 01/29/2021 07/03/19 Assessment & Plan (01/29/2021 11:09 AM [facility]): Obesity is unchanged. Discussed the patient's BMI. The BMI is above average. BMI management plan is completed. BMI Follow-up includes: nutrition counseling, exercise counseling and education provided. Acute pain of left shoulder 01/25/2021 02/08/2021 Assessment & Plan (01/25/2021 1:20 PM [facility]): Encouraged NSAIDS (if able to safely tolerate) [...] 09/27/19 Assessment & Plan (04/07/2020 8:01 PM [facility]): Obesity is unchanged. Discussed the patient's BMI. The BMI is above average. BMI management plan is completed. BMI Follow-up includes: nutrition counseling, exercise counseling and education provided. Obesity (BMI 30-39.9) 03/18/20202020 Assessment & Plan (03/18/2020 10:58 AM [facility]): Obesity is unchanged. Discussed the patient's BMI. [...] and triple antibiotic ointment. 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 Guy Assessment & Plan (03/20/2019 12:02 AM [facility]): Discussed options of repeat colonscopy vs Cologuard. Prefers cologuard BMI 30.0-30.9,adult 08/25/2018 03/18/19 Assessment & Plan (10/29/2019 10:00 AM CDT): Obesity is unchanged. Discussed the patient's BMI. The BMI is above average. BMI management plan is completed. BMI Follow-up includes: nutrition counseling, exercise counseling and education provided. Assessment & Plan (03/20/2019 12:00 AM [facility]): Obesity is unchanged. Discussed the patient's BMI. [...] provided. Assessment & Plan (03/19/2019 11:59 PM [facility]): Obesity is unchanged. Discussed the patient's BMI. [...] Reviewed options for assistance with cessation. Reviewed intermediate sequela associated with smoking. Pt declines assistance at this time but may contact the office at anytime for further help as they desire. Assessment & Plan (08/04/2022 11:57 AM CDT): Encouraged smoking cessation. Discussed 3 minutes. Reviewed options for assistance with cessation. Reviewed terminal block assembler sequela associated with smoking. Pt declines assistance at this time but may contact the office at anytime for further help as they desire. Assessment & Plan (06/28/2022 10:23 AM CDT): Encouraged smoking cessation. Discussed 3 minutes. Reviewed options for assistance with cessation. Reviewed terminal block assembler sequela associated with smoking. Pt declines assistance at this time but may contact the office at anytime for further help as they desire. Due for low-dose CT. Will place order Assessment & Plan (02/08/2021 11:42 PM [facility]): Encouraged smoking cessation. Discussed 3 minutes. Reviewed options for assistance with cessation. Reviewed intermediate sequela associated with smoking. Pt declines assistance at this time but may contact the office at anytime for further help as they desire. Assessment & Plan (09/26/2020 7:20 PM CDT): Encouraged smoking cessation. Discussed 3 minutes. Reviewed options for assistance with cessation. Reviewed terminal block assembler sequela associated with smoking. Pt declines assistance at this time but may contact the office at anytime for further help as they desire. Assessment & Plan (04/07/2020 7:58 PM [facility]): Encouraged smoking cessation. Discussed 3 minutes. Reviewed options for assistance with cessation. Reviewed intermediate sequela associated with smoking. Pt declines assistance at this time but may contact the office at anytime for further help as they desire. Assessment & Plan (10/29/2019 10:00 AM CDT): Encouraged smoking cessation. Discussed 3 minutes. Reviewed options for assistance with cessation. Reviewed intermediate sequela associated with smoking. Pt declines assistance at this time but may contact the office at anytime for further help as they desire. Assessment & Plan (03/20/2019 12:00 AM [facility]): Encouraged smoking cessation. Discussed 3 minutes. Reviewed options for assistance with cessation. Reviewed intermediate sequela associated with smoking. Pt declines assistance [...] 08/25/201803/02 Assessment & Plan (03/20/2019 12:00 AM [facility]): Mammogram order provided Assessment & Plan (08/27/2018 6:45 PM CDT): Mammogram order provided Immunizations Immunization Administration Dates Next Due Influenza, Quadrivalent, Hig h Dose, Preservative Free, Intrr 12/10/2022,01/11/2022 Influenza, Unspecified 01/11/2022,2020,12/04/2019,12/15,12/15/2013,12/19/2011 Pfizer SARS-CoV-2 Monovalent Vaccination (12+ Yrs) PURPLE 11/28/2021,11/27/2020,05/21/2020,04/30 Pneumococcal Conjugate PCV 13 01/29/2021 Pneumococcal Polysaccharide PPV23 02/02/2022 Tdap 07/30/2018 Social History Tobacco Use Types Packs/Day Years Used Date Smoking Tobacco: Every Day Cigarettes 0.5 55.2 Started: 1969 Smokeless Tobacco: Never Tobacco Cessation:Ready to Q [...] on file Legal Sex Female 6:08 PM [facility] Gender Identity Female 11/19/2020 3:11 PM CDT Sexual Orientation Not on file 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 Not on file Not on file Last Filed Vital Signs Vital Sign Reading Time Taken Comments Blood Pressure 134/72 04/26/2024 10:50 AM [facility] Pulse 102 04/26/2024 10:50 AM [facility] Temperature 36.6 C (97.8 F) 04/26/2024 10:50 AM [facility] [employer] Respiratory Rate 16 06/15/2023 10:25 AM CDT Oxygen Saturation 95% 04/26/2024 10:50 AM [facility] [employer] Inhaled Oxygen Concentration - - Weight 81.4 kg (179 lb 6.4 oz) 04/26/2024 10:50 AM [facility] Height 160 cm (5' 3 ) 04/26/2024 10:50 AM [facility] Body Mass Index 31.78 04/26/2024 10:50 AM [facility] Plan of Treatment Not on file Procedures Procedure Name Priority Date/Time Associated Diagnosis Comments IRON PROFILE W/ IBC Routine 04/10/2024 9 :48 AM [facility] TSH Routine 04/10/2024 9:48 AM [facility] Fatigue, unspecified type LIPID PANEL Routine 04/10/2024 9:48 AM [facility] Type 2 diabetes mellitus with hyperlipidemia (HCC) HEMOGLOBIN A1C Routine 04/10/2024 9:48 AM [facility] Type 2 diabetes mellitus with hyperlipidemia (HCC) COMPREHENSIVE METABOLIC PANEL Routine 04/10/2024 9:48 AM [facility] Type 2 diabetes mellitus with hyperlipidemia (HCC) CBC WITH AUTO DIFFERENTIAL Routine 04/10/2024 9:48 AM [facility] Type 2 diabetes mellitus with hyperlipidemia (HCC) ALBUMIN CREATININE RATIO, URINE Routine 04/10/2024 9:48 AM [facility] Type 2 diabetes mellitus with hyperlipidemia (HCC) XR FINGER THUMB RIGHT Schedule Routine, Read Routine (OP Routine) 03/20/2024 11:06 AM [facility] Closed nondisplaced fracture of distal phalanx of right thumb with routine healing, subsequent encounter XR FINGER THUMB RIGHT Schedule Routine, Read Routine (OP Routine) 02/28/2024 8:34 AM [facility] Thumb pain, right XR FINGER THUMB RIGHT Schedule Routine, Read Routine (OP Routine) 02/14/2024 9:24 AM [facility] Thumb pain, right CT LUNG CANCER SCREENING [...] Iron profile w/ IBC (04/10/2024 9:48 AM [facility]) Pathologist [facility] Iron 42(L) 45 - 160 mcg/dL [facility] TIBC 427 250 - 450 mcg/dL (calc) [facility] Iron saturation 10(L) 16 - 45 % (calc) [facility] 04/10/2024 9:48 AM [facility] 04/10/2024 9:49 AM [facility] Narrative [facility] - 04/11/2024 9:01 AM [facility] FASTING:YES FASTING: YES Fátima TAYLOR LAB BLOOD ORDERABLES Final Result [facility] [address] [place] [address] * (ABNORMAL) CBC with auto differential (04/10/2024 9:48 AM [facility]) Pathologist [facility] WBC 9.3 3.8 - 10.8 Thousand/u L [...] [facility] Blood 04/10/2024 9:48 AM [facility] 04/10/2024 9:49 AM [facility] Narrative [facility] - 04/11/2024 9:01 AM [facility] FASTING:YES FASTING: YES Fátima TAYLOR LAB BLOOD ORDERABLES Final Result [facility] [address] [address] * Albumin Creatinine Ratio, Urine (04/10/2024 9:48 AM [facility]) Pathologist [facility] Creatinine, ur 193 20 - 275 mg/dL [...] a diagnostic category. Urine 04/10/2024 9:48 AM [facility] 04/10/2024 9:49 AM [facility] Narrative [facility] - 04/11/2024 9:01 AM [facility] FASTING:YES FASTING: YES Fátima TAYLOR LAB URINE ORDERABLES Final Result Performing Organization Address [facility] Co de Phone Number [facility] [address] [place] [address] * TSH (04/10/2024 9:48 AM [facility]) Pathologist [facility] TSH 2.02 0.40 - 4.50 mIU/L [facility] Blood 04/10/2024 9:48 AM [facility] 04/10/2024 9:49 AM [facility] Narrative [facility] - 04/11/2024 9:01 AM [facility] FASTING:YES FASTING: YES Fátima TAYLOR LAB BLOOD ORDERABLES Final Result Performing Organization Address [facility] de Phone Number [facility] [address] [place] [address] * (ABNORMAL) Hemoglobin A1c (04/10/2024 9:48 AM [facility]) Hgb A1C 7.0(H) <5.7 % of total Hgb [facility] Comment: For someone without known diabetes, [...] diabetes for children. Blood 04/10/2024 9:48 AM [facility] 04/10/2024 9:49 AM [facility] Narrative [facility] - 04/11/2024 9:01 AM [facility] FASTING:YES FASTING: YES Fátima TAYLOR LAB BLOOD ORDERABLES Final Result [facility] [address] [place] [address] * (ABNORMAL) Lipid panel (04/10/2024 9:48 AM [facility]) Pathologist [facility] Cholesterol 118 <200 mg/dL [facility] [...] factors. LDL-C is now calculated using the Jerrell-Ramirez calculation, which is a validated novel method providing better accuracy than the Friedewald equation in the estimation of LDL-C. Jerrell SS et al. KYLIE. 2013;310(19): 6031-2716 (http://education.Amanda Huff [employer]BA [employer]overy.BlockBeacon/faq/OEY687) Chol/HDL ratio 2.0 <5.0 (calc) [facility] Non-HDL, (LDL+VLDL) 58 <130 mg/dL (calc) [facility] Comment: For patients with diabetes plus 1 major ASCVD risk factor, treating to a non-HDL-C goal of <100 mg/dL (LDL-C of <70 mg/dL) is considered a therapeutic option. Blood 04/10/2024 9:48 AM [facility] 04/10/2024 9:49 AM [facility] Narrative [facility] - 04/11/2024 9:01 AM [facility] FASTING:YES FASTING: YES Fátima TAYLOR LAB BLOOD ORDERABLES Final Result [facility] [address] [place] [address] * (ABNORMAL) Comprehensive metabolic panel (04/10/2024 9:48 AM [facility]) Glucose 128(H) 65 - 99 mg/dL [facility] [...] [facility] Blood 04/10/2024 9:48 AM [facility] 04/10/2024 9:49 AM [facility] Narrative [facility] - 04/11/2024 9:01 AM [facility] FASTING:YES FASTING: YES Fátima TAYLOR LAB BLOOD ORDERABLES Final Result [facility] [address] [address] [place] [address] * XR Finger Thumb Right Minimum 2 Views (03/20/2024 11:06 AM [facility]) Anatomical Region Laterality Modality Upper Extremities, Hand, Fingers Right Computed Radiography 03/20/2024 8:31 PM [facility] Narrative 03/20/2024 8:59 PM [facility] EXAM DESCRIPTION: XR FINGER THUMB RIGHT MINIMUM [...] Yoel Muniz M.D. MF: JIM Report ID: [id number] Reading Location: [place] [address] Procedure Note Yoel Muniz MD - 03/20/2024 [...] Yoel Muniz M.D. MF: JIM Report ID: [id number] Reading Location: [id number] Zenaida TAYLOR IM XR PROCEDURES Final Result * XR Finger Thumb Right Minimum 2 Views (02/28/2024 8:34 AM [facility]) Anatomical Region Laterality Modality Upper Extremities, Hand, Fingers Right Computed Radiography 02/28/2024 8:56 AM [facility] Narrative 02/28/2024 9:03 AM [facility] EXAM DESCRIPTION: XR FINGER THUMB RIGHT MINIMUM [...] Yoel Muniz M.D. MF: JIM Report ID: [id number] Reading Location: [id number] Procedure Note Yoel Muniz MD - 02/28/2024 [...] Yoel Muniz M.D. MF: JIM Report ID: [id number] Reading Location: [id number] Zenaida TAYLOR IMG XR PROCEDURES Final Result * XR Finger Thumb Right Minimum 2 Views (02/14/2024 9:24 AM [facility]) Anatomical Region Laterality Modality Upper Extremities, Hand, Fingers Right Computed Radiography 02/14/2024 1:54 PM [facility] Narrative 02/14/2024 1:55 PM [facility] EXAM DESCRIPTION: XR FINGER THUMB RIGHT MINIMUM [...] Yoel Muniz M.D. MF: JIM Report ID: [id number] Reading Location: [id number] Procedure Note Yoel Muniz MD - 02/14/2024 [...] Yoel Muniz M.D. MF: JIM Report ID: [id number] Reading Location: [place] [address] Result [facility] Kelsy Randhawa MD IMG XR PROCEDURES Final R esult * CT Lung Cancer Screening (11/08/2023 3:22 PM CDT) Anatomical Region Laterality Modality Chest N/A Computed Tomogra phy Result [facility] Fátima TAYLOR IMG CT PROCEDURES Final Re sult * Screening Mammogram Bilateral [place] (06/30/2023) Anatomical Region Laterality Modality Breast Bilateral Mammography Impressions 06/30/2023 Recommend routine screening mammography in one year. BI-RADS Category 1: Negative Result [facility] Fátima TAYLRO IMG MAMMO PROCEDURES Final Result * HM DIABETES EYE EXAM (07/28/2022) Result [facility] Historical Provider HEALTH MAINTENANCE Edited Result - Final * Colonoscopy (09/30/2021) Anatomical Region Laterality Modality Other Historical Provider ENDOSCOPY PROCEDURES Deepa l Result * DEXA SCAN (08/13/2021) Result [facility] Historical Provider HEALTH MAINTENANCE Final Result from Last 3 Months or Most Recently Relevant to Health Maintenance Insurance [employer] MEDICARE [facility] MEDICARE [facility] AET[employer] MEDICARE [facility] [place] [address] [facility] [place] [address] 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
== END 2024-05-03 13:57 | disposition home or self-care (01) ==
LOC: ANHIMG 14:06
PROVIDERS: PCP Physician Assistant; Visit Provider Physician Assistant
DX: M85.88 Other specified disorders of bone density and structure, other site (principal); Z78.0 Asymptomatic menopausal state; Z13.820 Encounter for screening for osteoporosis
CPT/HCPCS: 77080

== ENCOUNTER 2024-05-27 11:33 | Emergency (ER) | payer MEDICARE, SELFPAY ==
--- NOTE | ~2024-05-27 | XR_ITS ---
EXAMINATION: XR chest 2V DATE: 05/27/2024 11:55 INDICATION: Cough. TECHNIQUE: Frontal and lateral views of the chest were obtained. COMPARISON: Chest 2 views 03/02/2024 FINDINGS: There is mild atelectasis in lingula. No pleural effusion or pneumothorax. The heart size i s normal. Surgical clips in the right upper quadrant are likely from cholecystectomy. IMPRESSION: 1. Mild atelectasis in lingula. Reviewed, dictated and finalized at location A.
[2024-05-27 11:40] VITALS: BP 137/72; PULSE 102; RESP 18; TEMP 36.4; O2SAT 97
--- NOTE | 2024-05-27 11:41 | ED.URI ---
HPI - URI/Sore Throat General Chief Complaint: Upper Respiratory Infection Stated Complaint: Cough Time Seen by Provider: 05/27/24 11:41 Source: patient, RN notes reviewed and old records reviewed Mode of arrival: ambulatory Limitations: no limitations History of Present Illness HPI Narrative: 68-year-old female presents to the [facility] with a cough that started on Wednesday, 4 days ago. Reports she also feels congested. Started feeling better on hand symptoms returned today. States that she has tried taking sinus medication. Patient currently smokes a half a pack a day. Reports she did use her albuterol this morning Onset (ago): day(s) (4) Related Data Home Medications ?Medication ?Instructions ?Recorded ?Confirmed ?Last Taken ?Type metformin 1,000 mg tablet 1,000 mg PO DIRECTED 04/01/19 03/02/24 Unknown History trazodone 50 mg tablet 50 mg PO DAILY 04/01/19 03/02/24 Unknown History losartan 50 mg tablet 50 mg PO DAILY 07/27/22 03/02/24 Unknown History rosuvastatin 20 mg tablet 20 mg PO DAILY 07/27/22 03/02/24 Unknown History albuterol sulfate 90 mcg/actuation inhalation 03/02/24 Unknown History aerosol inhaler Allergies Allergy/AdvReac Type Severity Reaction Status Date / Time No Known Allergies Allergy Verified 05/27/24 11:35 Review of Systems Review of Systems: All systems reviewed & are unremarkable except as noted in HPI and below Constitutional: Constitutional: Reports no additional constitutional complaints ENT: Reports as per HPI and Reports nasal congestion Cardiovascular: Cardiovascular: Reports no additional cardiovascular complaints, Denies chest pain and Denies dyspnea Respiratory: Respiratory: Reports as per HPI, Reports chest congestion, Reports cough and Denies dyspnea Musculoskeletal: Musculoskeletal: Reports no additional musculoskeletal complaints Integumentary/Breasts: Skin/Breast: Reports system reviewed and no additional complaints, except as docu PMFSH Past Medical History Medical History HLD (hyperlipidemia) HTN (hypertension) Type 2 diabetes mellitus without complication Vitamin D deficiency Surgical History Surgical History History of cholecystectomy History of hysterectomy Family History Family History Mother Family history of diabetes mellitus in first degree relative Father Family history of diabetes mellitus in first degree relative Family history of coronary artery disease Social History Social History Smoking packs per day: 0.5 Smoking cigarettes per day: 10.0 Smoking status: Current every day smoker Alcohol intake: never Substance use: never Living arrangements: with family Gender identity (if verbalized by the patient): Female Spiritual care concerns: No Comments At the time of my signature, I reviewed and agree with the nursing past medical, surgical, social, and family history. There is no relevant family history pertinent to the patient complaint. Exam Const: General: cooperative, healthy appearing, comfortable, no acute distress, well developed, alert and well nourished Nutritional Appearance: well nourished Orientation/consciousness: patient oriented x3 Limitations: no limitations HENMT: Head: normal to inspection Ears: hearing grossly normal bilaterally, external ears normal, TM's normal bilaterally, EAC's normal, mastoids normal and no periauricular adenopathy Mouth: Yes Normal oral and palatal mucosa present, Yes lip normal, Yes tongue normal and Yes moist mucous membranes Throat: posterior oropharynx normal, uvula midline, postnasal drainage and no uvular edema Eyes: General: appearance normal, both eyes and all related structures Alignment and Position: alignment normal Neck: Neck: normal visual inspection, full ROM, no lymphadenopathy and no meningeal signs Chest: Chest palpation & inspection: normal inspection of the chest Resp: Effort & Inspection: normal respiratory effort and able to speak in complete sentences Auscultation: no crackles, no rales, no rhonchi and wheezes expiratory wheezes and scattered wheezes Cardio: Rate: regular rate Skin: General skin exam: normal color and no rashes or lesions noted Neuro: General: patient oriented x3, gait normal, moves all extremities and no meningeal signs Cognition (Neuro): normal cognition Speech: normal speech Gait exam (Neuro): Normal gait present Extrem: General: normal to inspection, full ROM, capillary refill normal and normal gait Psych: Appearance: grossly normal and well kempt Mental Status: mental status grossly normal Speech and movement: Normal speech and movement present and Clear speech present Affect: normal affect Attitude: cooperative Course Course Level of Care: Express Care Visit Vital Signs Vital signs: Vital Signs Temperature 97.5 F L 05/27/24 11:40 Pulse Rate 102 H 05/27/24 11:40 Respiratory Rate 18 05/27/24 11:40 Blood Pressure 137/72 05/27/24 11:40 Pulse Oximetry 97 05/27/24 11:40 Oxygen Delivery Room Air 05/27/24 11:40 Temperature 97.5 F L 05/27/24 11:40 Pulse Rate 102 H 05/27/24 11:40 Respiratory Rate 18 05/27/24 11:40 Blood Pressure 137/72 05/27/24 11:40 Pulse Oximetry 97 05/27/24 11:40 Oxygen Delivery Room Air 05/27/24 11:40 Reviewed MDM - URI/Sore Throat MDM Narrative Medical decision making narrative: Patient sitting comfortably in exam room. Nontoxic, vitals stable. Patient in no acute distress. Patient presents with 4 day history of a cough, wheezing. Has used her albuterol. Reports she has also taken sinus medication. Flu COVID are negative in clinic. Chest x-ray shows no pneumonia. Patient appropriate for outpatient treatment of bronchitis Discharge instructions reviewed with patient, as well as provided in writing per nursing staff. The instructions also include specific and strict return/GO TO THE ER as well as f/u information. All questions have been answered, and the patient deny any further questions with discharge and discharge plan. Some parts of this dictation were generated by voice recognition software and may contain typographical and/or grammatical inaccuracies. Differential Diagnosis Differential diagnosis: Likely upper respiratory infection, otitis media, sinusitis, viral infection, bronchitis and influenza Lab Data Labs: Lab Results 05/27/24 Range/Units 11:45 POC Influenza A Ag Negative (Negative) POC Influenza B Ag Negative (Negative) POC SARS CoV-2 Ag Negative (Negative) Reviewed Imaging Data Radiologist's impression: EXAMINATION: XR chest 2V DATE: 05/27/2024 11:55 INDICATION: Cough. TECHNIQUE: Frontal and lateral views of the chest were obtained. COMPARISON: Chest 2 views 03/02/2024 FINDINGS: There is mild atelectasis in lingula. No pleural effusion or pneumothorax. The heart size is normal. Surgical clips in the right upper quadrant are likely from cholecystectomy. IMPRESSION: 1. Mild atelectasis in lingula. Critical Care Time Critical Care Time Critical Care Time: No Discharge Plan Discharge Clinical Impression: Atelectasis, Acute exacerbation of chronic bronchitis Patient Disposition: Home, Self-Care Condition: Stable Instructions: Antibiotic Form, Chronic Bronchitis (ED), Atelectasis (ED) Additional Instructions: Your x-ray showed atelectasis, no pneumonia. Stop smoke Use the albuterol every 4-5 hours while awake for the next 5 days and then as needed Your rapid COVID test were negative Your rapid flu test was negative It is very important to treat your symptoms. Drink plenty of water, Gatorade, Pedialyte, ice pops or Jell-O. -Alternate Tylenol and Motrin per package directions for fever or pain. You can alternate every 4 hours -Antihistamine medication such as Zyrtec/Claritin/Linda during the day can help improve symptoms. -doing daily nasal irrigations can help relieve pressure your sinuses. Things like a Neti pot -Use Flonase twice a day for 5 days then daily to help reduce the inflammation and dry up your sinuses. -You can also use Mucinex. Be sure to drink plenty of water with this medication at least 8 ounces with every dose and it is important to drink 8 to 10 glasses of water per day. Water is a natural decongestant -Eat and drink things that are easy to swallow, like tea or soup, or popsicles. -Oral rinses such as: Salt water gargles and/or may use topical anesthetic (eg. Chloraseptic spray) or lozenges to relieve dryness or throat pain). -Frequent hand washing or hand respiratory practitioner is one of the best ways to prevent spread of infection. -Using a vaporizer or humidifier at night will also help thin secretions and help with coughing up phlegm. -Follow up with primary care provider in 7-10 days if condition is not improving - For new or worsening symptoms go directly to the nearest ER Patient Language: Ukrainian Prescriptions: New albuterol sulfate 90 mcg/actuation HFA aerosol inhaler 2 puff inhalation QID PRN (Reason: shortness of breath or wheezing) Qty: 6.7 0RF prednisone 20 mg tablet See Rx Instructions .Route .COMPLEX Qty: 9 0RF Rx Instructions: Take 40 mg daily for 3 days, 20 mg daily for 3 days No Action trazodone 50 mg tablet 50 mg PO DAILY metformin 1,000 mg tablet 1,000 mg PO DIRECTED losartan 50 mg tablet 50 mg PO DAILY rosuvastatin 20 mg tablet 20 mg PO DAILY albuterol sulfate 90 mcg/actuation HFA aerosol inhaler INHALATION albuterol sulfate 90 mcg/actuation HFA aerosol inhaler 2 puff inhalation QID PRN (Reason: shortness of breath or wheezing) Qty: 6.7 0RF Follow-up/Referrals: Kaylie,CLAUDIA Shine [Primary Care Provider] - 1 Week ([facility] care follow up ) Time of Disposition: 12:16
[2024-05-27 12:07] LABS: EDCOVIDSCREEN Negative (Negative); EDINFLUASCREEN Negative (Negative); EDINFLUBSCREEN Negative (Negative)
== END 2024-05-27 12:25 | disposition home or self-care (01) ==
PROVIDERS: Emergency Provider Nurse Practitioner; PCP Physician Assistant
DX: J98.11 Atelectasis (principal); J44.1 Chronic obstructive pulmonary disease with (acute) exacerbation; Z20.822 Contact with and (suspected) exposure to COVID-19; F17.210 Nicotine dependence, cigarettes, uncomplicated; I10 Essential (primary) hypertension; E11.9 Type 2 diabetes mellitus without complications; Z79.84 Long term (current) use of oral hypoglycemic drugs; E78.5 Hyperlipidemia, unspecified
CPT/HCPCS: 71046; 87426; 87804; 99213; G0463

== ENCOUNTER 2024-07-24 11:26 | Emergency (ER) | payer MEDICARE, SELFPAY ==
--- NOTE | 2024-07-24 11:29 | ED_ITS ---
HPI - URI/Sore Throat General Chief Complaint: Upper Respiratory Infection Stated Complaint: cough/runny nose Time Seen by Provider: 07/24/24 11:32 Source: patient, RN notes reviewed and old records reviewed Mode of arrival: ambulatory Limitations: no limitations History of Present Illness HPI Narrative: 68-year-old female presents to the [facility] with complaints of a cough, runny nose. Patient reports at least 1 week of productive cough green to yellow, runny nose. Has a history of bronchitis, chronic. Patient is a smoker, history of diabetes, type 2 diabetic. Patient reports taking allergy medications, Flonase, Mucinex and sinus medications. States that she did use her albuterol yesterday. No treatment today Related Data Home Medications ?Medication ?Instructions ?Recorded ?Confirmed ?Last Taken ?Type metformin 1,000 mg tablet 1,000 mg PO DIRECTED 04/01/19 03/02/24 Unknown History trazodone 50 mg tablet 50 mg PO DAILY 04/01/19 03/02/24 Unknown History losartan 50 mg tablet 50 mg PO DAILY 07/27/22 03/02/24 Unknown History rosuvastatin 20 mg tablet 20 mg PO DAILY 07/27/22 03/02/24 Unknown History albuterol sulfate 90 mcg/actuation inhalation 03/02/24 Unknown History aerosol inhaler Allergies Allergy/AdvReac Type Severity Reaction Status Date / Time No Known Allergies Allergy Verified 07/24/24 11:30 Review of Systems Review of Systems: All systems reviewed & are unremarkable except as noted in HPI and below Constitutional: Constitutional: Reports no additional constitutional complaints ENT: Reports as per HPI Cardiovascular: Cardiovascular: Reports no additional cardiovascular complaints, Denies chest pain and Denies dyspnea Respiratory: Respiratory: Reports as per HPI, Reports chest congestion, Reports cough, Denies dyspnea and Reports wheezing Musculoskeletal: Musculoskeletal: Reports no additional musculoskeletal complaints Integumentary/Breasts: Skin/Breast: Reports system reviewed and no additional complaints, except as docu PMFSH Past Medical History Medical History HLD (hyperlipidemia) HTN (hypertension) Type 2 diabetes mellitus without complication Vitamin D deficiency Surgical History Surgical History History of cholecystectomy History of hysterectomy Family History Family History Mother Family history of diabetes mellitus in first degree relative Father Family history of diabetes mellitus in first degree relative Family history of coronary artery disease Social History Social History Smoking packs per day: 0.5 Smoking cigarettes per day: 10.0 Smoking status: Current every day smoker Alcohol intake: never Substance use: never Living arrangements: with family Gender identity (if verbalized by the patient): Female Spiritual care concerns: No Comments At the time of my signature, I reviewed and agree with the nursing past medical, surgical, social, and family history. There is no relevant family history pertinent to the patient complaint. Exam Const: General: cooperative, healthy appearing, comfortable, no acute distress, well developed, alert and well nourished Nutritional Appearance: well nourished Orientation/consciousness: patient oriented x3 Limitations: no limitations HENMT: Head: normal to inspection Ears: hearing grossly normal bilaterally, external ears normal, TM's normal bilaterally, EAC's normal, mastoids normal and no periauricular adenopathy Mouth: Yes Normal oral and palatal mucosa present, Yes lip normal, Yes tongue normal and Yes moist mucous membranes Throat: posterior oropharynx normal, uvula midline, postnasal drainage and no uvular edema Eyes: General: appearance normal, both eyes and all related structures Alignment and Position: alignment normal Neck: Neck: normal visual inspection, full ROM, no lymphadenopathy and no meningeal signs Chest: Chest palpation & inspection: normal inspection of the chest Resp: Effort & Inspection: normal respiratory effort and able to speak in complete sentences Auscultation: no crackles, no rales, no rhonchi, wheezes expiratory wheezes and left lower and diminished lung sounds diffuse Cardio: Rate: tachycardic (Reports she has had tachycardia since having COVID) Skin: General skin exam: normal color and no rashes or lesions noted Neuro: General: patient oriented x3, gait normal, moves all extremities and no meningeal signs Cognition (Neuro): normal cognition Speech: normal speech Gait exam (Neuro): Normal gait present Extrem: General: normal to inspection, full ROM, capillary refill normal and normal gait Psych: Appearance: grossly normal and well kempt Mental Status: mental status grossly normal Speech and movement: Normal speech and movement present and Clear speech present Affect: normal affect Attitude: cooperative Course Course Level of Care: Express Care Visit Vital Signs Vital signs: Vital Signs Temperature 97.3 F L 07/24/24 11:33 Pulse Rate 121 H 07/24/24 11:33 Respiratory Rate 16 07/24/24 11:33 Blood Pressure 103/45 L 07/24/24 11:33 Pulse Oximetry 98 07/24/24 11:33 Oxygen Delivery Room Air 07/24/24 11:33 Temperature 97.3 F L 07/24/24 11:33 Pulse Rate 121 H 07/24/24 11:33 Respiratory Rate 16 07/24/24 11:33 Blood Pressure 103/45 L 07/24/24 11:33 Pulse Oximetry 98 07/24/24 11:33 Oxygen Delivery Room Air 07/24/24 11:33 Reviewed MDM - URI/Sore Throat MDM Narrative Medical decision making narrative: Patient sitting in exam room. Nontoxic, vitals stable. Patient presents with at least 1 week of URI symptoms. History of bronchitis. Patient has wheezing left lower lobe otherwise clear but diminished. Patient appropriate for outpatient treatment with close follow-up Discharge instructions reviewed with patient, as well as provided in writing per nursing staff. The instructions also include specific and strict return/GO TO THE ER as well as f/u information. All questions have been answered, and the patient deny any further questions with discharge and discharge plan. Some parts of this dictation were generated by voice recognition software and may contain typographical and/or grammatical inaccuracies. Differential Diagnosis Differential diagnosis: Likely upper respiratory infection, otitis media, sinusitis, viral infection and bronchitis Critical Care Time Critical Care Time Critical Care Time: No Discharge Plan Discharge Clinical Impression: Acute exacerbation of chronic bronchitis, Sinusitis, Post-nasal drainage Patient Disposition: Home Condition: Stable Instructions: Antibiotic Form, Sinusitis (ED), Chronic Bronchitis (ED), Postnasal Drip (DC) Additional Instructions: It is very important to treat your symptoms. Drink plenty of water, Gatorade, Pedialyte, ice pops or Jell-O. -Alternate Tylenol and Motrin per package directions for fever or pain. You can alternate every 4 hours -Antihistamine medication such as Zyrtec/Claritin/Linda during the day can help improve symptoms. -doing daily nasal irrigations can help relieve pressure your sinuses. Things like a Neti pot -Use Flonase twice a day for 5 days then daily to help reduce the inflammation and dry up your sinuses. -You can also use Mucinex. Be sure to drink plenty of water with this medication at least 8 ounces with every dose and it is important to drink 8 to 10 glasses of water per day. Water is a natural decongestant -Eat and drink things that are easy to swallow, like tea or soup, or popsicles. -Oral rinses such as: Salt water gargles and/or may use topical anesthetic (eg. Chloraseptic spray) or lozenges to relieve dryness or throat pain). -Frequent hand washing or hand manager student services is one of the best ways to prevent spread of infection. -Using a vaporizer or humidifier at night will also help thin secretions and help with coughing up phlegm. -Follow up with primary care provider in 7-10 days if condition is not improving - For new or worsening symptoms go directly to the nearest ER Patient Language: Citizen Of [place] Prescriptions: New doxycycline monohydrate 100 mg tablet 100 mg PO BID Qty: 14 0RF albuterol sulfate 90 mcg/actuation HFA aerosol inhaler 2 puff inhalation QID PRN (Reason: shortness of breath or wheezing) Qty: 6.7 0RF prednisone 20 mg tablet 40 mg PO DAILY 5 Days Qty: 10 0RF No Action trazodone 50 mg tablet 50 mg PO DAILY metformin 1,000 mg tablet 1,000 mg PO DIRECTED losartan 50 mg tablet 50 mg PO DAILY rosuvastatin 20 mg tablet 20 mg PO DAILY albuterol sulfate 90 mcg/actuation HFA aerosol inhaler INHALATION albuterol sulfate 90 mcg/actuation HFA aerosol inhaler 2 puff inhalation QID PRN (Reason: shortness of breath or wheezing) Qty: 6.7 0RF Follow-up/Referrals: Kaylie,CLAUDIA Shine [Primary Care Provider] - 3 Days (express care follow up ) Time of Disposition: 11:47
[2024-07-24 11:33] VITALS: BP 103/45; PULSE 121; RESP 16; TEMP 36.3; O2SAT 98
== END 2024-07-24 11:50 | disposition home or self-care (01) ==
PROVIDERS: Emergency Provider Nurse Practitioner; PCP Physician Assistant
DX: J44.1 Chronic obstructive pulmonary disease with (acute) exacerbation (principal); I10 Essential (primary) hypertension; E11.9 Type 2 diabetes mellitus without complications; Z79.84 Long term (current) use of oral hypoglycemic drugs; E78.5 Hyperlipidemia, unspecified; F17.210 Nicotine dependence, cigarettes, uncomplicated
CPT/HCPCS: 99213; G0463

== ENCOUNTER 2024-08-30 12:38 | Outpatient (CLI) | payer MEDICARE, SELFPAY ==
--- NOTE | ~2024-08-30 | MM_ITS ---
EXAMINATION: MM screening sukh BI w sid HISTORY: Screening mammogram TECHNIQUE: Craniocaudal and mediolateral oblique 3-D tomosynthesis images were obtained and synthetic 2-D images were generated. CAD analysis was submitted and interpreted. COMPARISON: 06/30/2023, 08/13/2021 BREAST PARENCHYMAL COMPOSITION:Not Dense. The breasts are almost entirely fatty FINDINGS: No suspicious mass, calcification, or architectural distortion are identified in either cat ast to suggest malignancy. There has been no suspicious interval change. IMPRESSION: No mammographic evidence of malignancy. Recommend routine screening mammography in one year. BI-RADS Category 1: Negative Reviewed, dictated and finalized at location .
== END 2024-08-30 12:39 | disposition home or self-care (01) ==
PROVIDERS: PCP Physician Assistant; Visit Provider Physician Assistant
DX: Z12.31 Encounter for screening mammogram for malignant neoplasm of breast (principal)
CPT/HCPCS: 77063; 77067

== ENCOUNTER 2024-11-09 12:33 | Outpatient (CLI) | payer MEDICARE, SELFPAY ==
--- NOTE | ~2024-11-09 | CT_ITS ---
EXAMINATION:CT lung screening DATE: 11/09/2024 12:45 INDICATION: Personal history of nicotine dependence. Current smoker. TECHNIQUE: Computed tomography (CT) of the chest was performed without intravenous contrast. Automated exposure control and iterative reconstruction technique were employed. The dose-length product (DLP) was 92.37 mGy-cm. COMPARISON: Chest CT 11/08/2023 FINDINGS: There is mild emphysema. There is mild atelectasis bilaterally. There is a 3 mm nodule in right middle lobe. There is a 2 mm nodule in right upper lobe. There are a few 2-3 mm nodules in left lung. No pleural effusion. The heart size is normal. No pericardial effusion. There are changes of ch olecystectomy. There is mild thoracic spondylosis. IMPRESSION: 1. Lung-RADS category 2: Benign appearance or behavior. Continue annual screening with noncontrast low-dose chest CT in 12 months. Reviewed, dictated and finalized at location E. IMPRESSION: 1. Lung-RADS category 2: Benign appearance or behavior. Continue annual screeni ng with noncontrast low-dose chest CT in 12 months.
== END 2024-11-09 12:34 | disposition home or self-care (01) ==
LOC: MICIMG 12:33
PROVIDERS: PCP Physician Assistant; Visit Provider Physician Assistant
DX: Z12.2 Encounter for screening for malignant neoplasm of respiratory organs (principal); Z87.891 Personal history of nicotine dependence
CPT/HCPCS: 71271

== ENCOUNTER 2025-01-09 11:17 | Emergency (ER) | payer MEDICARE, OTHER, SELFPAY ==
--- NOTE | ~2025-01-09 | XR_ITS ---
EXAMINATION: XR knee LT 3V, 01/09/2025 12:30 SEISMIC PLOTTER HISTORY: knee pain NON INJ ACUTE ONSET OF WT BEARING DISCOMFORT COMPARISON: No comparisons available. Findings: No acute fracture or malalignment. No significant degenerative changes. Soft tissues unremarkable. Impression: No acute fracture or malalignment. Reviewed, dictated and finalized at location P. MIC PLOTTER Impression: No acute fracture or malalignment.
--- NOTE | ~2025-01-09 | US_ITS ---
EXAMINATION: US venous doppler LE LT, 01/09/2025 13:15 CAREER TECHNICAL COUNSELOR HISTORY: posterior lt knee pain Comparison: None Technique: Disla-scale and color Doppler images were attempted of the lower saphenofemoral junction, common femoral vein,superficial femoral vein, proximal deep femoral vein, proximal deep femoral vein, popliteal vein and posterior tibial veins. Findings: Deep Venous System:Normal flow, augmentation and compressibility. No echogenic thrombus identified. The contralateral saphenofemoral junction appears unremarkable. Superficial Venous SystemNo superficial thrombophlebitis. Soft tissues: Soft tissues are unremarkable. Impression: Negative for DVT. Reviewed, dictated and finalized at location P. ER TECHNICAL COUNSELOR Impression: Negative for DVT.
[2025-01-09 11:19] VITALS: BP 159/80; PULSE 112; RESP 16; TEMP 36.6; O2SAT 96
--- OUTSIDE RECORDS SUMMARY | 2025-01-09 11:57 | XMS_ITS | Clinical Summary ---
Author Organization [facility] Address [address], [address] [address] Phone Care Team Providers Care Sustainable Design Consultant Name Role Phone Fátima Lott [facility] Primary Care Provider [phone] Social History Tobacco Use Types Packs/Day Years Used Date Smoking Tobacco: Never Assessed Comments Unknown Sex and Gender Information Value Date Recorded Sex Assigned at Not on file Legal Sex Female 9:12 AM CDT Gender Identity Not on file Sexual Orientation Not on file Plan of Treatment Health Maintenance Due Date Last Done Comments Hepatitis C Virus (HCV) Screening 1955 Cologuard 12/25/2000 Colonoscopy 12/25/2000 Colorectal Cancer Screening 12/25/2000 Immunochemical Fecal Occult Blood 12/25/2000 Pneumococcal Immunization (50+ years) (1 of 1 - PCV) 12/25/2005 Zoster Immunization (1 of 2) 12/25/2005 Influenza Immunization (#1) 10/30/202406/2019, 12/15/2018, 12/15/2013, Additional history exists SARS-COV-2 Immunization (2024- season) 2024 11/27/2020, 05/21/2020, 04/30/2020 Respiratory Syncytial Virus (RSV) Immunization (Adult) (1 - 1-dose 75+ series) 12/25/2030 DTaP/Tdap/Td Immunization Discontinued 07/30/2018 TdaP Immunization Completed 07/30/2018 Hepatitis B Immunization Aged Out No longer eligible based on patient's age to complete this topic Human Papillomavirus (HPV) Immunization Aged Out No longer eligible based on patient's age to complete this topic Meningococcal Immunization (ACWY) Aged Out No longer eligible based on patient's age to complete this topic Rotavirus Immunization Aged Out No lo nger eligible based on patient's age to complete this topic [facility] Care Teams Sustainable Design Consultant Relationship Specialty Start Date End Date Fátima Lott PAC PCP - General Physician Pad Making Machine Operator 08/08/19
--- OUTSIDE RECORDS SUMMARY | 2025-01-09 11:57 | XMS_ITS | Encounter Summary ---
Author Organization [facility] Address [address] [place] [address] Care Team Providers Care Electrical Worker Name Role Phone Fátima Lott Primary Care Provider [phone]- [phone] Sukhdeep Sims MD Unavailable [phone] Encounter Details Date Type Department Care Team (Late st Contact Info) Description 07/28/2024 Telephone [facility] Accountable Care Organization [address] [place] [address] Janice Garcia [address] [place] [address] Social History Tobacco Use Types Packs/Day Years Used Date Smoking Tobacco: Every Day Cigarettes 0.5 55.9 Started: 1970 Smokeless Tobacco: Never Alcohol Use [...] on file 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 Gender Identity Female 11/19/2020 3:11 PM CDT Sexual Orientation Not on file 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
--- OUTSIDE RECORDS SUMMARY | 2025-01-09 11:57 | XMS_ITS | Encounter Summary ---
Author Organization [facility] Address [address] [place] [address] Care Team Providers Care Fruit Farmworker Name Role Phone Fátima Lott Primary Care Provider [phone] Sukhdeep Sims MD Unavailable [phone] Encounter Details Date Type Department Care Team (Late st Contact Info) Description 11/16/2024 Results Follow-Up [facility] Family Medicine [address] [place] [address] Fátima Lott PA [address] [place] [address] LUNG CANCER SCREENING Social History Tobacco Use Types Packs/Day Years Used Date Smoking Tobacco: Every Day Cigarettes 0.5 55.9 Started: 1970 Smokeless Tobacco: Never Alcohol Use Standard Drinks/Week Comments Never 0 (1 standard drink = 0.6 oz pur e alcohol) AUDIT-C Answer Date Recorded Q1: How often do you have a drink containing alcohol? Never 09/20/2024 Q2: How many drinks containi ng alcohol do you have on a typical day when you are drinking? Patient does not drink Q3: How often do you have si x or more drinks on one occasion? Never 09/20/2024 PHQ-2 Answer Date Recorded PHQ-2 Total Score (If total score is 3 or more points, staff should administer the PHQ-9) 0 09/06/2024 PHQ-9 Answer Date Recorded PHQ-9 Total Score 6 10/26/2023 Personal Safety Answer Date Recorded Have you ever been in or are you currently in a harmful physical or emotional relationship or is someone making you feel afraid or unsafe? 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 * Result Encounter Note - Fátima Lott PA - 11/16/2024 4:29 PM CDT Let pt know her mammogram is normal and will plan to repeat in 1 year. documented in this encounter Plan of Treatment Not on file documented as of this encounter Visit Diagnoses Not on filedocumented in this encounter Care Teams Fruit Farmworker Relationship Specialty Start Date End Date Fátima Lott PA [address] [facility] [address] [place] [address] PCP - General Internal Medicine 06/29/18 Sukhdeep Sims MD [address] [facility] [address] [place] [address] Consulting Physician General Surgery 06/15/23 documented as of this encounter
--- OUTSIDE RECORDS SUMMARY | 2025-01-09 11:57 | XMS_ITS | Clinical Summary ---
Author Organization [facility] [address] [facility] Address [address] [place] [address] Care Team Providers Care Emt/Dispatcher Name Role Phone Fátima Lott Primary Care Provider [phone] Sukhdeep Sims MD Unavailable [phone] Allergies No known active allergies Medications metFORMIN (GLUCOPHAGE) 1,000 mg tabletIndications: Type 2 diabetes mellitus with hyperlipidemia (HCC) TAKE 1 TABLET(1000 MG) BY MOUTH DAILY WITH BREAKFAST 90 tablet 2 5 Active LORazepam (ATIVAN) 0.5 mg tablet Take one tab 1 hour prior to flight. Avoid alcohol. Do Not Drive. 8 tablet 5 Active albuterol HFA (ProAir HFA) 90 mcg/actuation inhaler Inhale 2 puffs every 4 (four) hours as needed for wheezing or shortness of breath 8.5 g 5 09/16/19 26 Active traZODone (DESYREL) 50 mg tabletIndications: Primary insomnia Take 1 tablet (50 mg total) by mouth nightly 90 tablet 2 5 Active rosuvastatin (CRESTOR) 20 mg tablet TAKE 1 TABLET(20 MG) BY MOUTH DAILY 90 tablet 1 5 Active losartan (COZAAR) 50 mg tablet TAKE 1 TABLET(50 MG) BY MOUTH DAILY 100 tablet 5 Active Active Problems Problem Noted Date Diagnosed Date Pre-operative clearance 09/17/2024 Assessment & Plan (09/17/2024 8:24 PM CDT): Pre-op labs ordered and EKG results are on the chart and are stable from last year prior to a general anesthesia procedure. I have examined this patient and ordered the appropriate lab work/tests. I have reviewed with patient the inherent risks associated with surgery, not limited to bleeding, infection, DVT, etc. EKG was normal and estimiated METS is 4-6 with this low cardiac risk surgery. Patient denies any cardiac sxs with activity. Therefore, to the best of my knowledge, there is not a medical contraindication for undergoing this elective surgery with general and/or regional anesthesia if labs are stable. Menopause 05/07/2024 Assessment & Plan (05/07/2024 9:37 PM CDT): Check DEXA Breast cancer screening by mammogram 05/07/2024 Assessment & Plan (05/07/2024 9:37 PM CDT): Mammogram order provided Nondisplaced fracture of dis mart phalanx of right thumb with routine healing 02/08/2024 Assessment & Plan (02/08/2024 3:04 PM [employer]): Patient has a nondisplaced fracture of the distal phalanx of the right thumb. She is currently immobilized in a splint after being seen in the urgent care. Continue with Tylenol or Motrin as tolerated. Ice to the area. Will make referral to hand for further evaluation BMI 31.0-31.9,adult 02/03/2024 Assessment & Plan (04/26/2024 10:56 AM [employer]): BMI Follow-up includes: Discussed diet and exercising counseling. Assessment & Plan (02/03/2024 2:30 PM [employer]): Discussed the patient's BMI. The BMI is above average. BMI management plan is completed. BMI Follow-up includes: nutrition counseling, exercise counseling and education provided. Obesity (BMI 30.0-34.9) 11/01/2023 Assessment & Plan (09/06/2024 11:29 AM CDT): Discussed the patient's BMI. The BMI is above average. BMI management plan is completed. BMI Follow-up includes: nutrition counseling, exercise counseling and education provided. Assessment & Plan (04/26/2024 10:56 AM [employer]): BMI Follow-up includes: Discussed diet and exercising counseling. Assessment & Plan (02/03/2024 2:30 PM [employer]): Discussed the patient's BMI. The BMI is above average. BMI management plan is completed. BMI Follow-up includes: nutrition counseling, exercise counseling and education provided. Assessment & Plan (11/01/2023 7:45 PM CDT): Discussed the patient's BMI. The BMI is above average. BMI management plan is completed. BMI Follow-up includes: nutrition counseling, exercise counseling and education provided. Hypertension associated with diabetes 11/01/2023 Assessment & Plan (09/17/2024 8:22 PM CDT): Bp is stable/in acceptable range for any co-morbidities. Encouraged to limit sodium intake and exercise for weight control. Continue losartan 50 Assessment & Plan (05/07/2024 9:35 PM CDT): Bp is stable/in acceptable range for any co-morbidities. Encouraged to limit sodium intake and exercise for weight control. Continue losartan 50 Assessment & Plan (11/01/2023 7:43 PM CDT): Bp is stable/in acceptable range for any co-morbidities. Encouraged to limit sodium intake and exercise for weight control. Stressed importance of continued A1c control to minimize the alf effects of diabetes. Bring accuchecks to office [...] at 7.0 Anemia 11/01/2023 Assessment & Plan (05/07/2024 9:37 PM CDT): Hemoglobin hematocrit have been normal but the iron sat has been fluctuating. It was as low as 7 went up to about 18 and now is around 10. Strongly encouraged iron supplementation with vitamin-C. Recheck CBC and iron panel in 2 months and if still low may need to consider referral to Hematology Assessment & Plan (11/01/2023 7:48 PM CDT): History of anemia. Recheck labs Tinea cruris 01/14/2023 Assessment & Plan (01/14/2023 2:55 PM [employer]): Rashes consistent with tinea. Keep area clean and dry. May need to use a cool hair primer expeditor and drier to the area prior to applying the Lotrisone. May use powder once things are cleared up to prevent. If symptoms worsen or do not resolve she is to call back immediately Chronic obstructive pulmonary disease 12/19/2022 Assessment & Plan (09/17/2024 8:22 PM CDT): Mild symptoms. Albuterol prn Refuses inhaler daily Assessment & Plan (11/01/2023 7:45 PM CDT): Saw her in area Dr. Watson. She is asymptomatic with her COPD so willing to just monitor. Encouraged complete smoking cessation. Has tried Wellbutrin XL. Did not want to continue. She continues to work hard on cutting back Assessment & Plan (04/20/2023 2:16 PM [employer]): Strongly encouraged complete smoking cessation. She is [...] plan Cigarette smoker 12/19/2022 Assessment & Plan (09/17/2024 8:22 PM CDT): Encouraged smoking cessation. Discussed 3 minutes. Reviewed options for assistance with cessation. Reviewed bed bug exterminator sequela associated with smoking. Pt declines assistance at this time but may contact the office at anytime for further help as they desire. Assessment & Plan (05/07/2024 9:36 PM CDT): Encouraged smoking cessation. Discussed 3 minutes. Reviewed options for assistance with cessation. Reviewed alf sequela associated with smoking. Pt declines assistance at this time but may contact the office at anytime for further help as they desire. Assessment & Plan (11/01/2023 7:46 PM CDT): Encouraged smoking cessation. Discussed 3 minutes. Reviewed options for assistance with cessation. Reviewed alf sequela associated with smoking. Pt declines assistance at this time but may contact the office at anytime for further help as they desire. Assessment & Plan (04/20/2023 2:17 PM [employer]): Encouraged smoking cessation. Discussed 3 minutes. She is on Wellbutrin and tolerating the 150 well. Willing to increase to the 300 to see if this helps with cessation effort even more. Will increase to 300. She may take 2 of the 150 XL until they are exhausted. Assessment & Plan (01/14/2023 2:53 PM [employer]): Pt desires assistance with cessation. Discussed options [...] Reviewed options for assistance with cessation. Reviewed bed bug exterminator sequela associated with smoking. Pt declines assistance at this time but may contact the office at anytime for further help as they desire. Fear of flying 08/08/2022 Assessment & Plan (09/17/2024 8:21 PM CDT): Lorazepam sent for flying. No alcohol Do not drive while taking. Assessment & Plan (08/08/2022 4:32 PM CDT): Patient requests refill of her Ativan as she will be flying this summer. Reminded patient no alcohol and do not drive while taking Adhesive capsulitis of left shoulder 04/10/2021 Abnormal EKG 02/10/2021 Assessment & Plan (02/10/2021 8:38 AM AS[employer]): This is a significant, separately identifiable problem [...] 02/08/2021 Assessment & Plan (02/10/2021 8:38 AM ASSEM[employer]): This is a significant, separately identifiable problem that was evaluated and managed on the same day as the wellness exam Persistent left shoulder pain. Has not had full relief with physical therapy. Using Mobic p.r.n.. Will make refer to ortho for further evaluation Colon cancer screening 02/08/2021 Assessment & Plan (02/10/2021 8:36 AM AS[employer]): Patient past due for colon cancer screening [...] 03/20/2019 Assessment & Plan (03/20/2019 12:02 AM ASSEMBLER [employer]): MCV was a little low and she has noted increased ice eating. AVELINO-inhibitor cough 03/08/2019 Lung nodule 03/08/2019 Overview (02/08/2021): 03/2019 - LDCT -- benign changes. Repeat 03/202004/04/2020 LDCT -- benign changes. Repeat 04/2021 Assessment & Plan (02/08/2021 11:44 PM ASSEM[employer]): Next low-dose CT due after April 05, 2021. Will place order to be scheduled after April 05 Assessment & Plan (04/07/2020 7:57 PM ASSEM[employer]): LDCT due for routine screeing. Will schedule. Assessment & Plan (03/19/2019 11:59 PM AS[employer]): Need to repeat LDCT from 08/2016 - which showed benign changes/followup 1 year. BMI 30.0-30.9,adult 08/25/2018 Assessment & Plan (09/06/2024 11:29 AM CDT): Discussed the patient's BMI. The BMI is above average. BMI management plan is completed. BMI Follow-up includes: nutrition counseling, exercise counseling and education provided. Assessment & Plan (10/29/2019 10:00 AM CDT): Obesity is unchanged. Discussed the patient's BMI. The BMI is above average. BMI management plan is completed. BMI Follow-up includes: nutrition counseling, exercise counseling and education provided. Assessment & Plan (03/20/2019 12:00 AM [employer]): Obesity is unchanged. Discussed the patient's BMI. The BMI is above average. BMI management plan is completed. BMI Follow-up includes: nutrition counseling, exercise counseling and education provided. Assessment & Plan (08/25/2018 1:32 PM CDT): BMI Follow-up includes: Discussed diet and exercising counseling. Controlled type 2 diabetes steve boggs without complication, without long-term current use of insulin 08/25/2018 Assessment & Plan (09/17/2024 8:21 PM CDT): Stressed importance of continued A1c control to minimize the bed bug exterminator effects of diabetes. Bring accuchecks to office when instructed to do so. Check A1c about every 3-6 months. Take medication as prescribed. Get annual eye exam. Encouraged AVELINO/Statin if able to tolerate. Encouraged weight control and encouraged diabetic diet and exercise. Get labs updated Assessment & Plan (05/07/2024 9:35 PM CDT): Stressed importance of continued A1c control to minimize the bed bug exterminator effects of diabetes. Bring accuchecks to office when instructed to do so. Check A1c about every 3-6 months. Take medication as prescribed. Get annual eye exam. Encouraged AVELINO/Statin if able to tolerate. Encouraged weight control and encouraged diabetic diet and exercise. Continue metformin 1 g b.i.d.. Last A1c was 7 so she is at goal Assessment & Plan (11/01/2023 7:44 PM CDT): Stressed importance of continued A1c control to minimize the bed bug exterminator effects of diabetes. Bring accuchecks to office when instructed to do so. Check A1c about every 3-6 months. Take medication as prescribed. Get annual eye exam. Encouraged AVELINO/Statin if able to tolerate. Encouraged weight control and encouraged diabetic diet and exercise. Continue metformin 1 g daily. A1c is at 7 Assessment & Plan (04/20/2023 2:17 PM AS[employer]ER [employer]): Stressed importance of continued A1c control to minimize the bed bug exterminator effects of diabetes. Bring accuchecks to office when instructed to do so. Check A1c about every 3-6 months. Take medication as prescribed. Get annual eye exam. Encouraged AVELINO/Statin if able to tolerate. Encouraged weight control and encouraged diabetic diet and exercise. Continue metformin 1 g daily Assessment & Plan (12/19/2022 12:06 PM CDT): Stressed importance of continued A1c control to minimize the alf effects of diabetes. Bring accuchecks to office [...] of continued A1c control to minimize the alf effects of diabetes. Bring accuchecks to office when instructed to do so. Check A1c about every 3-6 months. Take medication as prescribed. Get annual eye exam. Encouraged AVELINO/Statin if able to tolerate. Encouraged weight control and encouraged diabetic diet and exercise. Continue metformin 1 g daily Assessment & Plan (02/15/2022 10:21 AM AS[employer]): Stressed importance of continued A1c control to minimize the bed bug exterminator effects of diabetes. Bring accuchecks to office [...] of continued A1c control to minimize the alf effects of diabetes. Bring accuchecks to office [...] point. Assessment & Plan (02/08/2021 11:37 PM [employer]): Stressed importance of continued A1c control to minimize the bed bug exterminator effects of diabetes. Bring accuchecks to office when instructed to do so. Check A1c about every 3-6 months. Take medication as prescribed. Get annual eye exam. Encouraged AVELINO/Statin if able to tolerate. Encouraged weight control and encouraged diabetic diet and exercise. Continue metformin check labs Assessment & Plan (09/26/2020 7:18 PM CDT): Stressed importance of continued A1c control to minimize the alf effects of diabetes. Bring accuchecks to office when instructed to do so. Check A1c about every 3-6 months. Take medication as prescribed. Get annual eye exam. Encouraged AVELINO/Statin if able to tolerate. Encouraged weight control and encouraged diabetic diet and exercise. Continue metformin 1gm qd Assessment & Plan (04/07/2020 7:57 PM AS[employer]): Stressed importance of continued A1c control to minimize the bed bug exterminator effects of diabetes. Bring accuchecks to office [...] of continued A1c control to minimize the alf effects of diabetes. Bring accuchecks to office when instructed to do so. Check A1c about every 3-6 months. Take medication as prescribed. Get annual eye exam. Encouraged AVELINO/Statin if able to tolerate. Encouraged weight control and encouraged diabetic diet and exercise. Assessment & Plan (03/20/2019 12:00 AM ASSEM[employer]): Stressed importance of continued A1c control to minimize the alf effects of diabetes. Bring accuchecks to office [...] of continued A1c control to minimize the bed bug exterminator effects of diabetes. Bring accuchecks to office [...] diabetes mellitus with hyperlipidemia Assessment & Plan (09/17/2024 8:21 PM CDT): Encouraged patient to follow low fat/low chol diet like the Mediterranean diet. Increase good fats in the diet. Increase exercise. Monitor labs as needed. Continue crestor 20 Assessment & Plan (05/07/2024 9:35 PM CDT): Encouraged patient to follow low fat/low chol diet like the Mediterranean diet. Increase good fats in the diet. Increase exercise. Monitor labs as needed. Continue Crestor 20 Assessment & Plan (11/01/2023 7:45 PM CDT): Encouraged patient to follow low fat/low chol diet like the Mediterranean diet. Increase good fats in the diet. Increase exercise. Monitor labs as needed. Continue Crestor 20 Assessment & Plan (04/20/2023 2:15 PM ASSEM[employer]): Stressed importance of continued A1c control to minimize the alf effects of diabetes. Bring accuchecks to office [...] needed. Assessment & Plan (02/15/2022 10:21 AM ASSEMBLER [employer]): Encouraged patient to follow low fat/low chol [...] simvastatin Assessment & Plan (02/08/2021 11:42 PM ASSEM[employer]): Encouraged patient to follow fat/low chol diet like the Mediterranean diet. Increase good fats in the diet. Increase exercise. Monitor labs as needed. Continue simvastatin Assessment & Plan (09/26/2020 7:19 PM CDT): Encouraged patient to follow fat/low chol diet like the Mediterranean diet. Increase good fats in the diet. Increase exercise. Monitor labs as needed. Continue statin Assessment & Plan (04/07/2020 7:57 PM AS[employer]): Encouraged patient to follow fat/low chol diet like the Mediterranean diet. Increase good fats in the diet. Increase exercise. Monitor labs as needed. Continue statin Assessment & Plan (10/29/2019 10:00 AM CDT): Encouraged patient to continue low fat/low chol diet. Continue exercise. Increase good fats in the diet. Monitor labs as needed. Continue statin Assessment & Plan (03/20/2019 12:00 AM ASSEM[employer]): Encouraged patient to continue low fat/low chol diet. Continue exercise. Increase good fats in the diet. Monitor labs as needed. D Assessment & Plan (08/27/2018 6:45 PM CDT): Encouraged patient to continue low fat/low chol diet. Continue exercise. Increase good fats in the diet. Monitor labs as needed. Continue statin Primary insomnia 08/25/2018 Assessment & Plan (09/17/2024 8:21 PM CDT): Stable. Continue Trazodone Assessment & Plan (11/01/2023 7:45 PM CDT): Continue trazodone 50 mg HS. Tolerating well with good control Assessment & Plan (06/28/2022 10:23 AM CDT): Continue trazodone 50 daily Assessment & Plan (02/15/2022 10:21 AM AS[employer]): Continue trazodone 50 Assessment & Plan (07/21/2021 10:44 AM CDT): Continue trazodone Assessment & Plan (02/08/2021 11:42 PM ASSEM[employer]): Continue trazodone Assessment & Plan (09/26/2020 7:20 PM CDT): Continue Trazodone Assessment & Plan (04/07/2020 7:57 PM AS[employer]): Continue trazodone Assessment & Plan (10/29/2019 10:00 AM CDT): Stable with trazodone Assessment & Plan (03/20/2019 12:01 AM AS[employer]): Continue trazodone prn Assessment & Plan (08/27/2018 6:46 PM CDT): Stable with Trazodone Other fatigue 08/25/2018 Assessment & Plan (03/20/2019 12:01 AM ASSEM[employer]ER [employer]): Probably multifactorial. Check labs and followup to re-evaluate Assessment & Plan (08/27/2018 6:46 PM CDT): Probably multifactorial. Check labs and followup to re-evaluate Resolved Problems Problem Noted Date Diagnosed Date Resolved Date Medicare annual wellness visit, subsequent 05/07/2024 09/17/2024 Assessment & Plan (05/07/2024 9:37 PM CDT): Encouraged healthy lifestyle, good nutrition and exercise. Encouraged Calcium and Vitamin D and weight bearing exercise for bone health. Reviewed immunizations. Reviewed age appropirate screenings. Medicare Wellness Documentation is completed within the chart Viral upper respiratory tract infection 02/29/2024 05/07/2024 Assessment & Plan (02/29/2024 1:38 PM [employer]): Recommend fluids, rest, humidification if needed. She [...] to plan of care at this time. Annual physical exam 11/01/2023 025 Assessment & Plan (11/01/2023 7:48 PM CDT): Encouraged healthy lifestyle, good nutrition and exercise. Encouraged Calcium and Vitamin D and weight bearing exercise for bone health. Reviewed immunizations Reviewed age appropirate screenings. Positive depression screening 10/26/2023 11/01/2023 Medicare annual wellness visit, subsequent 04/20/2023 11/01/2023 Assessment & Plan (04/20/2023 2:17 PM [employer]ER [employer]): Encouraged healthy lifestyle, good nutrition and exercise. Encouraged Calcium and Vitamin D and weight bearing exercise for bone health. Reviewed immunizations. Reviewed age appropirate screenings. Medicare Wellness Documentation is completed within the chart Mass of skin of shoulder, right 04/20/2023 04/20/2023 Mass of skin of right shoulder 04/20/2023 05/07/2024 Assessment & Plan (04/20/2023 2:18 PM ASSEMBLER [employer]): This is a significant, separately identifiable problem [...] She is in agreement with the plan Obesity (BMI 30-39.9) 01/14/20232023 Assessment & Plan (04/20/2023 2:17 PM AS[employer]): Discussed the patient's BMI. The BMI is above average. BMI management plan is completed. BMI Follow-up includes: nutrition counseling, exercise counseling and education provided. Assessment & Plan (01/14/2023 2:25 PM ASSEM[employer]ER [employer]): Discussed the patient's BMI. The BMI is [...] provided. Assessment & Plan (04/20/2023 2:16 PM ASSEMBLER [employer]): Discussed the patient's BMI. The BMI is above average. BMI management plan is completed. BMI Follow-up includes: nutrition counseling, exercise counseling and education provided. Assessment & Plan (01/14/2023 2:24 PM AS[employer]ER [employer]): Discussed the patient's BMI. The BMI is above average. BMI management plan is completed. BMI Follow-up includes: nutrition counseling, exercise counseling and education provided. Assessment & Plan (12/10/2022 10:39 AM CDT): Discussed the patient's BMI. The BMI is above average. BMI management plan is completed. BMI Follow-up includes: nutrition counseling, exercise counseling and education provided. BMI 31.0-31.9,adult 12/10/2022 01/15/20 23 Assessment & Plan (12/10/2022 10:39 AM CDT): [...] and education provided. BMI 31.0-31.9,adult 08/07/2022 12/11/19 23 Assessment & Plan (08/07/2022 8:57 AM CDT): [...] 06/28/2022 Assessment & Plan (02/15/2022 10:22 AM ASSEMBLER [employer]): Encouraged healthy lifestyle, good nutrition and exercise. Encouraged Calcium and Vitamin D and weight bearing exercise for bone health. Reviewed immunizations. Reviewed age appropirate screenings. Medicare Wellness Documentation is completed within the chart Need for 23-polyvalent pneum ococcal polysaccharide vaccine 02/02/2022 06/28/2022 Assessment & Plan (02/15/2022 10:22 AM ASSEMBLER [employer]): Pneumonia 23 updated in the office today Fatigue 07/21/2021 05/07/2024 Assessment & Plan (11/01/2023 7:46 PM CDT): Probably multifactorial. Check labs and followup to re-evaluate Assessment & Plan (04/20/2023 2:17 PM ASSEMBLER [employer]): Probably multifactorial. Check labs and followup to re-evaluate Assessment & Plan (06/28/2022 10:23 AM CDT): Probably multifactorial. Check labs and followup to re-evaluate Assessment & Plan (07/21/2021 10:44 AM CDT): Probably multifactorial. Check labs and followup to re-evaluate Obesity (BMI 30-39.9) 07/02/20212022 Assessment & Plan (02/02/2022 9:57 AM AS[employer]BLER [employer]): Discussed the patient's BMI. The BMI is above average. BMI management plan is completed. BMI Follow-up includes: nutrition counseling, exercise counseling and education provided. Assessment & Plan (07/02/2021 9:29 AM CDT): Obesity is unchanged. Discussed the patient's BMI. The BMI is above average. BMI management plan is completed. BMI Follow-up includes: nutrition counseling, exercise counseling and education provided. BMI 30.0-30.9,adult 07/02/2021 06/11/19 Assessment & Plan (02/02/2022 9:58 AM AS[employer]): Discussed the patient's BMI. The BMI is above average. BMI management plan is completed. BMI Follow-up includes: nutrition counseling, exercise counseling and education provided. Assessment & Plan (07/02/2021 9:29 AM CDT): Obesity is unchanged. Discussed the patient's BMI. The BMI is above average. BMI management plan is completed. BMI Follow-up includes: nutrition counseling, exercise counseling and education provided. Cough 03/27/2021 05/07/2024 Assessment & Plan (01/14/2023 2:52 PM ASSEMBLER [employer]): Patient has had a cough for the [...] concerns. Assessment & Plan (03/27/2021 5:52 PM ASSEMBLER [employer]): Will send patient to [place] for Covid-19 testing. The patient was advised to quarantine at least 10 days from symptom onset, but this determination will depend on result of testing. They were advised to contact us in the next 72h if they have not heard results of testing. They were advised to report to the ER if worsening. Pharyngitis 03/27/2021 05/07/2024 Welcome to Medicare preventive visit 02/08/2021 02/02/2022 Assessment & Plan (02/08/2021 11:44 PM ASSEMBLER [employer]): Encouraged healthy lifestyle, good nutrition and exercise. Encouraged Calcium and Vitamin D and weight bearing exercise for bone health. Reviewed immunizations. Reviewed age appropirate screenings. Medicare Wellness Documentation is completed within the chart Need for vaccination with 13 -polyvalent pneumococcal conjugate vaccine 02/08/2021 Assessment & Plan (02/08/2021 11:45 PM ASSEMBLER [employer]): Pneumonia 13 updated in the office today Obesity (BMI 30-39.9) 01/29/20212021 Assessment & Plan (01/29/2021 11:09 AM ASSEMBLER [employer]): Obesity is unchanged. Discussed the patient's BMI. The BMI is above average. BMI management plan is completed. BMI Follow-up includes: nutrition counseling, exercise counseling and education provided. BMI 31.0-31.9,adult 01/29/2021 07/03/19 22 Assessment & Plan (01/29/2021 11:09 AM ASSEMBLER HANDBAGS): Obesity is unchanged. Discussed the patient's BMI. The BMI is above average. BMI management plan is completed. BMI Follow-up includes: nutrition counseling, exercise counseling and education provided. Acute pain of left shoulder 01/25/2021 02/08/2021 Assessment & Plan (01/25/2021 1:20 PM ASSEMBLER HANDBAGS): Encouraged NSAIDS (if able to safely tolerate) [...] 09/27/19 Assessment & Plan (04/07/2020 8:01 PM ASSEMBLER HANDBAGS): Obesity is unchanged. Discussed the patient's BMI. The BMI is above average. BMI management plan is completed. BMI Follow-up includes: nutrition counseling, exercise counseling and education provided. Obesity (BMI 30-39.9) 03/18/20202020 Assessment & Plan (03/18/2020 10:58 AM ASSEMBLER HANDBAGS): Obesity is unchanged. Discussed the patient's BMI. [...] and triple antibiotic ointment. Encouraged her to picker tender helper non adherent dressing with Silvadene cream and [...] 09/26/2020 Assessment & Plan (04/07/2020 8:00 PM ASSEMBLER HANDBAGS): Mammogram order provided Colon cancer screening 03/20/201909/26 Assessment & Plan (10/29/2019 10:01 AM CDT): Delayed by KAMILAH but set up with dr. Guy Assessment & Plan (03/20/2019 12:02 AM ASSEMBLER HANDBAGS): Discussed options of repeat colonscopy vs Cologuard. Prefers cologuard Obesity (BMI 30-39.9) 08/25/20182020 Assessment & Plan (10/29/2019 9:59 AM CDT): Obesity is unchanged. Discussed the patient's BMI. The BMI is above average. BMI management plan is completed. BMI Follow-up includes: nutrition counseling, exercise counseling and education provided. Assessment & Plan (03/19/2019 11:59 PM ASSEMBLER HANDBAGS): Obesity is unchanged. Discussed the patient's BMI. [...] Reviewed options for assistance with cessation. Reviewed alf sequela associated with smoking. Pt declines assistance at this time but may contact the office at anytime for further help as they desire. Assessment & Plan (08/04/2022 11:57 AM CDT): Encouraged smoking cessation. Discussed 3 minutes. Reviewed options for assistance with cessation. Reviewed bed bug exterminator sequela associated with smoking. Pt declines assistance at this time but may contact the office at anytime for further help as they desire. Assessment & Plan (06/28/2022 10:23 AM CDT): Encouraged smoking cessation. Discussed 3 minutes. Reviewed options for assistance with cessation. Reviewed alf sequela associated with smoking. Pt declines assistance at this time but may contact the office at anytime for further help as they desire. Due for low-dose CT. Will place order Assessment & Plan (02/08/2021 11:42 PM ASSEMBLER HANDBAGS): Encouraged smoking cessation. Discussed 3 minutes. Reviewed options for assistance with cessation. Reviewed bed bug exterminator sequela associated with smoking. Pt declines assistance at this time but may contact the office at anytime for further help as they desire. Assessment & Plan (09/26/2020 7:20 PM CDT): Encouraged smoking cessation. Discussed 3 minutes. Reviewed options for assistance with cessation. Reviewed bed bug exterminator sequela associated with smoking. Pt declines assistance at this time but may contact the office at anytime for further help as they desire. Assessment & Plan (04/07/2020 7:58 PM ASSEMBLER HANDBAGS): Encouraged smoking cessation. Discussed 3 minutes. Reviewed options for assistance with cessation. Reviewed alf sequela associated with smoking. Pt declines assistance at this time but may contact the office at anytime for further help as they desire. Assessment & Plan (10/29/2019 10:00 AM CDT): Encouraged smoking cessation. Discussed 3 minutes. Reviewed options for assistance with cessation. Reviewed alf sequela associated with smoking. Pt declines assistance at this time but may contact the office at anytime for further help as they desire. Assessment & Plan (03/20/2019 12:00 AM ASSEMBLER HANDBAGS): Encouraged smoking cessation. Discussed 3 minutes. Reviewed options for assistance with cessation. Reviewed alf sequela associated with smoking. Pt declines assistance [...] 08/25/201803/02 Assessment & Plan (03/20/2019 12:00 AM ASSEMBLER HANDBAGS): Mammogram order provided Assessment & Plan (08/27/2018 6:45 PM CDT): Mammogram order provided Encounters Date Type Department Care Team Description 12/13/2024 1:00 PM CDT Immunization [address] [place] [phone] Flu vaccine need (Primary Dx) 11/16/2024 Results Follow-Up [address] [place] [phone] Fátima Lott PA LUNG CANCER SCREENING 11/16/2024 Orders Only [address] [place] [phone] ProviderSnow MD 10/10/2024 10:15 AM CDT Anesthesia Event [facility] [address] [place] [phone] Terry Kerr MD Leavell, Michael E., MD 10/10/2024 9:30 AM CDT - 10/10/2024 10:00 AM CDT Surgery [facility] [address] [place] [phone] Hazel Baldwin MD COLON REMOVAL HOT BIOPSY 10/10/2024 8:15 AM CDT - 10/10/2024 11:57 AM CDT Hospital Encounter [facility] [address] [place] [phone] Hazel Baldwin MD History of colon polyps Discharge Disposition: Discharge to home or self care from Last 3 Months Immunizations Immunization Administration Dates Next Due Influenza, Quadrivalent, Hig h Dose, Preservative Free, Intrr 12/10/2022,01/11/2022 Influenza, Trivalent, High D ose, Split, Preservative Free, Intramuscular 12/13/2024,12/15/2023 Influenza, Unspecified 01/11/2022,2020,12/04/2019,12/15,12/15/2013,12/19/2011 Pfizer SARS-CoV-2 Monovalent Vaccination (12+ Yrs) PURPLE 11/28/2021,11/27/2020,05/21/2020,04/30 Pneumococcal Conjugate PCV 13 01/29/2021 Pneumococcal Polysaccharide PPV23 02/02/2022 Tdap 07/30/2018 Surgical History Surgery Date Site/Laterality Comments CHOLECYSTECTOMY HYSTERECTOMY COLONOSCOPY x 2 hx polyps POLYPECTOMY WISDOM TOOTH EXTRACTION N/A pt has two natural teeh remaining on lower with partial and upper full denture EYE SURGERY hole in retina repair Medical History Medical History Date Comments Colon polyp Hyperlipidemia Type 2 diabetes mellitus Chronic obstructive pulmonary disease 12/19/2022 not SOB even with activity--being monitored Motion sickness Vaginal delivery Family History Medical History Relation Name Comments Colon cancer Daughter Diabetes Father Heart disease Father Diabetes Mother Relation Name Status Comments Daughter Alive Father Mother Social History Tobacco Use Types Packs/Day Years Used Date Smoking Tobacco: Every Day Cigarettes 0.5 55.9 Started: 1970 Smokeless Tobacco: Never Tobacco Cessation:Ready [...] on file Legal Sex Female 6:08 PM ASSEMBLER HANDBAGS Gender Identity Female 11/19/2020 3:11 PM CDT Sexual Orientation Not on file 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 Not on file Not on file Last Filed Vital Signs Vital Sign Reading Time Taken Comments Blood Pressure 129/76 10/10/2024 11:20 AM CDT Pulse 79 10/10/2024 11:20 AM CDT Temperature 36.3 C (97.4 F) 10/10/2024 11:00 AM CDT Respiratory Rate 19 10/10/2024 11:20 AM CDT Oxygen Saturation 98% 10/10/2024 11:20 AM CDT Inhaled Oxygen Concentration - - Weight 78 kg (172 lb) 09/06/2024 11:24 AM CDT Height 160 cm (5' 3) 09/06/2024 11:24 AM CDT Body Mass Index 30.47 09/06/2024 11:24 AM CDT Plan of Treatment Health Maintenance Due Date Last Done Comments Hepatitis C Screening 1955 Hepatitis B Screening 12/25/1973 Zoster Vaccine (1 of 2) 12/25/2005 Foot Exam 09/10/2020 09/11/2019, 08/25/2018 Dilated Eye Exam 07/29/2023 07/28/2022, , 03/14/2019, Additional history exists Covid-19 Vaccine (2024-2 6 season) 2024 12/15/2023, 02/02/2023, 11/28/2021, Additional history exists Hemoglobin A1C 03/16/2025 09/13/2024, 02, 10/05/2023, Additional history exists Albumin Creatinine Ratio, Urine 04/10/2025 04/10/2024, 10/05/2023, 10/16/2022 Lipid Panel 04/10/2025 04/10/2024, 0807/2023, 10/16/2022, Additional history exists Well Visit 65+ 04/26/2025 04/26/2024, 09/30, 04/12/2023, Additional history exists Breast Cancer Screening-Mammogram 08/30/2025 08/30/2024, 06/30/2023, 08/13/2021, Additional history exists Depression Screening 09/06/2025 09/06/2024, 04/26/2024, 02/03/2024, Additional history exists Fall Risk Assessment 09/06/2025 09/06/2024, 04/26/2024, 06/15/2023, Additional history exists eGFR 09/13/2025 09/13/2024, 04/01, 10/05/2023, Additional history exists Lung Cancer Screening 11/09/2025 11/09/2024 , 11/08/2023, 10/16/2022, Additional history exists Osteoporosis Screening-Bone Density Scan 05/03/2026 05/03/2024, 08/13/2021 Colon Cancer Screening-Colonoscopy 10/11/2027 10/10/2024, 09/30/2021, 02/20/2013 DTaP/Tdap/Td Vaccine (2 - Td or Tdap) 07/30/2028 07/30/2018, 12/08/2016 Pneumococcal vaccine 65+ Completed 02/02/2022, 1203/2020 Colon Cancer Screening-DNA Stool Discontinued 10/10/2024, 09/30/2021, 02/20/2013 Influenza Vaccine Completed 12/13/2024, , 12/10/2022, Additional history exists Procedures Procedure Name Priority Date/Time Associated Diagnosis Comments LUNG CANCER SCREENING Routine 11/09/2024 3:18 PM CDT SURGICAL PATHOLOGY Routine 10/10/2024 10:42 AM CDT History of colon polyps COLON REMOVAL HOT BIOPSY 10/10/2024 10:14 AM CDT Hx colon polyps COLONOSCOPY 10/10/2024 10:10 AM CDT POCT GLUCOSE DEVICE Routine 10/10/2024 9 :13 AM CDT COMPREHENSIVE METABOLIC PANEL Routine 09/13/2024 11:48 AM CDT Type 2 diabetes mellitus with hyperlipidemia (HCC) HEMOGLOBIN A1C Routine 09/13/2024 11:48 AM CDT Type 2 diabetes mellitus with hyperlipidemia (HCC) SCREENING MAMMOGRAM BILATERAL W SHELTON Schedule Routine, Read Routine (OP Routine) 08/30/2024 Breast cancer screening by mammogram DEXA AXIAL SKELETON BONE DENSITY 1 OR MORE SITES Schedule Routine, Read Routine (OP Routine) 05/03/2024 Menopause LIPID PANEL Routine 04/10/2024 9:48 AM ASSEMBLER HANDBAGS Type 2 diabetes mellitus with hyperlipidemia (HCC) ALBUMIN CREATININE RATIO, URINE Routine 04/10/2024 9:48 AM ASSEMBLER HANDBAGS Type 2 diabetes mellitus with hyperlipidemia (HCC) DIABETES EYE EXAM Routine 07/28/2022 from Last 3 Months or Most Recently Relevant to Health Maintenance Results * LUNG CANCER SCREENING (11/09/2024 3:18 PM CDT) Scribed Lung Cancer Screening Normal Impressions Anisa Chao MA - 11/09/2024 3:18 PM CDT Lung RADS category 2: Benign appearance or behavior. Continue annual screening with non-contrast low dose chest CT in 12 months. us Historical Provider HEALTH MAINTENANCE Edited Result - Final * Surgical pathology (10/10/2024 10:42 AM CDT) Tissue (Colon, Biopsy) 10/10/2024 10:42 AM CDT Comment:Hot bx Narrative PATHOLOGY [facility] - 10/11/2024 3:33 PM CDT [facility] Department of Pathology [address] [place] [address] Note to Patients: This report may contain a detailed description of human tissue sent by a health care provider to the laboratory for pathologic evaluation. The content of this report is essential for diagnosis and may provide important critical findings. This information may be unfamiliar to patients to review without a medical professional present. It is advised that the patient review this report in the presence of a health care provider who can answer questions and explain the details. Final Report Patient Name: FLO JOSHI : 1955 (Age: 68) Gender: F Address: [address] [place] [address] Hospital #: [id number] Service: Surgery Location: Patient Type: [facility] OUTPATIENT Taken: 10/10/2024 Received: 10/10/2024 Accessioned: 10/10/2024 Reported: 10/11/2024 Physician(s): Sommer Brown PA-C Diagnosis: Large bowel, ascending colon, polyp, polypectomy/biopsy - Tubular adenoma Elvis Talley MD Report Electronically Reviewed and Signed Out By Elvis Talley MD 10/11/2024 15:33:53 Specimen(s) Received: A: Ascending colon polyp Microscopic Description: Unless gross-only is specified, the final diagnosis for each specimen is based on a microscopic examination of each tissue sample. [place] [id number] Distribution Clinical History: The patient is a 68-year-old woman with a history of colon polyps. Operative procedure: Colonoscopy with biopsy. Gross Description Received in formalin, labeled with the patient s identifiers and ascending colon polyp and consists of a 0.3 cm schroeder tissue fragment, which is entirely submitted. Labeled A1. Jar 0. jjmhb/10/10/2024 14:03 BING Harris, PA (ASCP) Microscopic slide review and interpretation for this case was performed at [facility], Department of Surgical Pathology, [address] [facility] [place], [place] [id number], [place] [address] CLIA # [id number] us Hazel Baldwin MD LAB PATHOLOGY ORDERABLES Final R esult PATHOLOGY [facility] * Colonoscopy (10/10/2024 10:10 AM CDT) Anatomical Region Laterality Modality Other Narrative Procedure Note Hazel Baldwin MD - 10/10/2024 10:10 AM CDT [facility] GI ENDOSCOPY Patient Name: Flo Joshi Procedure Date: 10/10/2024 10:10 AM Date of : 1955 Admit Type: Outpatient Age: 68 Gender: Female Attending MD: Hazel Baldwin M.D., [id number] Room: [facility] ENDOSCOPY ROOM 05 Note Status: Finalized Procedure: Colonoscopy Indications: High risk colon cancer surveillance: Personalhistory of colonic polyps Referring MD: Providers: Hazel Baldwin M.D. Medicines: See the Anesthesia note for documentation of the administered medications Complications: No immediate complications. Estimated Blood Loss: Estimated blood loss was minimal. Procedure: The benefits, risks and alternatives of theprocedure and sedation were discussed and informed consentwas obtained. All questions were answered. Please referto the signed informed consent document in the medical record. The scope was passed under direct vision.The CF-H190L colonoscope was introduced through theanus and advanced to the cecum, identified byappendiceal orifice and ileocecal valve. The colonoscopy was performed without difficulty. The patient tolerated the procedure well. The quality of the bowel preparation was adequate. Findings: The perianal and digital rectal examinations were normal. An 8 mm polyp was found in the ascending colon. The polyp wassessile. The polyp was removed with a hot biopsy forceps. Resection andretrieval were complete. Diverticula were found in the colon. Impression: - One 8 mm polyp in the ascending colon, removedwith a hot biopsy forceps. Resected and retrieved. - Diverticulosis. Recommendation: - No aspirin, ibuprofen, naproxen, or other non-steroidal anti-inflammatory drugs for 5 days. - Repeat colonoscopy in 3 years for surveillance. Hazel Baldwin M.D. Hazel Baldwin M.D. 10/10/2024 10:58:25 AM . Number of Addenda: 0 Note Initiated On: 10/10/2024 10:10 AM Recognized by the [employer] for promoting quality in endoscopy us Hazel Baldwin MD ENDOSCOPY PROCEDURES Final Resul t * POCT glucose (10/10/2024 9:13 AM CDT) Glucose, POC 135 70 - 199 mg/dL Glucose comment 1 RN/MD Notified PERRY Blood 10/10/2024 9:13 AM CDT 10/10/2024 9:13 AM CDT Hazel Baldwin MD LAB POCT ORDERABLES - DEVICE Fin al Result Performing Organization Address City/[facility]/ZIP Co de Phone Number PERRY [address] [facility] Department [place] [address] * (ABNORMAL) Hemoglobin A1c (09/13/2024 11:48 AM CDT) Pathologist [facility] Hgb A1C 7.2(H) <5.7 % of total Hgb [facility] [...] for diagnosis of diabetes for children. Blood 09/13/2024 11:4 8 AM CDT 09/13/2024 11:49 AM CDT Fátima TAYLOR LAB BLOOD ORDERABLES Final Result Performing Organization Address City/[facility]/ZIP Co de Phone Number [facility] [address] [place] [address] * (ABNORMAL) Comprehensive metabolic panel (09/13/2024 11:48 AM CDT) Pathologist [facility] Glucose 111(H) 65 - 99 mg/dL [facility] Comment: Fasting reference interval For someone without known diabetes, a glucose value between 100 and 125 mg/dL is consistent with prediabetes and should be confirmed with a follow-up test. BUN 10 7 - 25 mg/dL [facility] Creatinine 0.76 0.50 - 1.05 mg/dL [facility] eGFR 85 > OR = 60 mL/min/1.7 3m2 [facility] BUN/creat ratio SEE NOTE: 6 - 22 (calc) [facility] Comment: Not Reported: BUN and Creatinine are within reference range. Sodium 138 135 - 146 mmol/L [facility] Potassium, pl 4.7 3.5 - 5.3 mmol/L [facility] Chloride 104 98 - 110 mmol/L [facility] CO2 26 20 - 32 mmol/L [facility] Calcium 9.7 8.6 - 10.4 mg/dL [facility] Protein, sr 6.7 6.1 - 8.1 g/dL [facility] Albumin 4.2 3.6 - 5.1 g/dL [facility] GLOBULIN 2.5 1.9 - 3.7 g/dL (calc) [facility] Alb/glob ratio 1.7 1.0 - 2.5 (calc) [facility] Bilirubin, total 0.5 0.2 - 1.2 mg/dL [facility] Alk phos 85 37 - 153 U/L [facility] AST 11 10 - 35 U/L [facility] ALT (SGPT) 9 6 - 29 U/L [facility] Blood 09/13/2024 11:4 8 AM CDT 09/13/2024 11:49 AM CDT us Fátima TAYLOR LAB BLOOD ORDERABLES Final Result [facility] [address] [place] [phone] * Screening Mammogram Bilateral [address] [place] (08/30/2024) Anatomical Region Laterality Modality Breast Bilateral Mammography 08/30/2024 Impressions 09/06/2024 3:24 PM CDT There is no mammographic evidence of malignancy. A 1 year screening mammogram is recommended. Bi-Rads Category 1: Negative us Fátima TAYLOR IMG MAMMO PROCEDURES Final Result * (ABNORMAL) Dexa Axial Skeleton Bone Density 1 or 2 Site (05/03/2024) Anatomical Region Laterality Modality Body N/A Radiographic Bettina ging 05/03/2024 Fátima TAYLOR [facility]XA PROCEDURES Final R esult * Albumin Creatinine Ratio, Urine (04/10/2024 9:48 AM ASSEMBLER HANDBAGS) Creatinine, ur 193 20 - 275 mg/dL [...] a diagnostic category. Urine 04/10/2024 9:48 AM ASSEMBLER HANDBAGS 04/10/2024 9:49 AM ASSEMBLER HANDBAGS Narrative [facility] - 04/11/2024 9:01 AM ASSEMBLER HANDBAGS FASTING:YES FASTING: YES us Fátima TAYLOR LAB URINE ORDERABLES Final Result [facility] [address] [place] [phone] * (ABNORMAL) Lipid panel (04/10/2024 9:48 AM ASSEMBLER HANDBAGS) Cholesterol 118 <200 mg/dL [facility] [...] LDL-C. Jerrell SS et al. KYLIE. 2013;310(19): 5237-6130 (http://education.[employer]/faq/OBY597) Chol/HDL ratio 2.0 <5.0 (calc) [facility] Non-HDL, (LDL+VLDL) 58 <130 mg/dL (calc) [facility] Comment: For patients with diabetes plus 1 major ASCVD risk factor, treating to a non-HDL-C goal of <100 mg/dL (LDL-C of <70 mg/dL) is considered a therapeutic option. Blood 04/10/2024 9:48 AM ASSEMBLER HANDBAGS 04/10/2024 9:49 AM ASSEMBLER HANDBAGS Narrative [facility] - 04/11/2024 9:01 AM ASSEMBLER HANDBAGS FASTING:YES FASTING: YES Fátima TAYLOR LAB BLOOD ORDERABLES Final Result [facility] [address] [place] [address] * DIABETES EYE EXAM (07/28/2022) Historical Provider HEALTH MAINTENANCE Edited Result - Final from Last 3 Months or Most Recently Relevant to Health Maintenance Insurance [employer] [facility] [id number] [place] [address] MEDICARE [facility] [employer] MED[employer] [facility] Care Teams Emt/Dispatcher Relationship Specialty Start Date End Date Fátima Lott PA [address] [facility] [address] [place] [address] PCP - General Internal Medicine 06/29/18 Sukhdeep Sims MD [address] [facility] [address] [place] [address] Consulting Physician General Surgery 06/15/23
--- OUTSIDE RECORDS SUMMARY | 2025-01-09 12:21 | XMS_ITS | Encounter Summary ---
Author Organization [facility] Healthcare Address [address] [place] [address] Care Team Providers Care Hydro Sprayer Operator Name Role Phone Fátima Lott Primary Care Provider [phone] Sukhdeep Sims MD Unavailable [phone] Encounter Details Date Type Department Care Team (Late st Contact Info) Description 07/28/2024 Telephone [facility] Accountable Care Organization [address] [place] [address] Janice Garcia [address] [place] [address] Social History Tobacco Use Types Packs/Day Years [...] on file Legal Sex Female 6:08 PM CONDUIT WORKER Gender Identity Female 11/19/2020 3:11 PM CDT Sexual Orientation Not on file 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
--- OUTSIDE RECORDS SUMMARY | 2025-01-09 12:21 | XMS_ITS | Clinical Summary ---
Author Organization [facility] Address [address], [address] [address] Phone Care Team Providers Care Licensed Weigher Name Role Phone Fátima Lott [facility] Primary Care Provider [phone] Social History Tobacco Use Types Packs/Day Years [...] patient's age to complete this topic Insurance [facility] Care Teams Licensed Weigher Relationship Specialty Start Date End Date Fátima Lott PAC PCP - General Physician Credit And Loan Collections Supervisor 08/08/19
--- OUTSIDE RECORDS SUMMARY | 2025-01-09 12:21 | XMS_ITS | Clinical Summary ---
Author Organization [facility] [place] [address] [facility] Address [address] [place] [address] Care Team Providers Care Adult And Pediatric Neurologist Name Role Phone Fátima Lott Primary Care Provider [phone] Sukhdeep Sims MD Unavailable [phone] Allergies No known active allergies Medications metFORMIN [...] 02/08/2024 Assessment & Plan (02/08/2024 3:04 PM [employer] B[employer]ER): Patient has a nondisplaced fracture of the distal phalanx of the right thumb. She is currently immobilized in a splint after being seen in the urgent care. Continue with Tylenol or Motrin as tolerated. Ice to the area. Will make referral to hand for further evaluation BMI 31.0-31.9,adult 02/03/2024 Assessment & Plan (04/26/2024 10:56 AM [employer] BENDER): BMI Follow-up includes: Discussed diet and exercising counseling. Assessment & Plan (02/03/2024 2:30 PM [employer] BENDER): Discussed the patient's BMI. The BMI is [...] provided. Assessment & Plan (04/26/2024 10:56 AM [employer]ER): BMI Follow-up includes: Discussed diet and exercising counseling. Assessment & Plan (02/03/2024 2:30 PM [employer] BENDER): Discussed the patient's BMI. The BMI is [...] of continued A1c control to minimize the fci effects of diabetes. Bring accuchecks to office [...] 01/14/2023 Assessment & Plan (01/14/2023 2:55 PM [employer]ER): Rashes consistent with tinea. Keep area clean and dry. May need to use a cool hair tray drier to the area prior to applying [...] back Assessment & Plan (04/20/2023 2:16 PM [employer]ER): Strongly encouraged complete smoking cessation. She is [...] Reviewed options for assistance with cessation. Reviewed rn long term care sequela associated with smoking. Pt declines assistance at this time but may contact the office at anytime for further help as they desire. Assessment & Plan (05/07/2024 9:36 PM CDT): Encouraged smoking cessation. Discussed 3 minutes. Reviewed options for assistance with cessation. Reviewed fci sequela associated with smoking. Pt declines assistance at this time but may contact the office at anytime for further help as they desire. Assessment & Plan (11/01/2023 7:46 PM CDT): Encouraged smoking cessation. Discussed 3 minutes. Reviewed options for assistance with cessation. Reviewed fci sequela associated with smoking. Pt declines assistance at this time but may contact the office at anytime for further help as they desire. Assessment & Plan (04/20/2023 2:17 PM [employer] B[employer]ER): Encouraged smoking cessation. Discussed 3 minutes. She is on Wellbutrin and tolerating the 150 well. Willing to increase to the 300 to see if this helps with cessation effort even more. Will increase to 300. She may take 2 of the 150 XL until they are exhausted. Assessment & Plan (01/14/2023 2:53 PM [employer]ER): Pt desires assistance with cessation. Discussed options [...] Reviewed options for assistance with cessation. Reviewed rn long term care sequela associated with smoking. Pt declines [...] 02/10/2021 Assessment & Plan (02/10/2021 8:38 AM [employer] B[employer]ER): This is a significant, separately identifiable problem [...] 02/08/2021 Assessment & Plan (02/10/2021 8:38 AM [employer]ER): This is a significant, separately identifiable problem that was evaluated and managed on the same day as the wellness exam Persistent left shoulder pain. Has not had full relief with physical therapy. Using Mobic p.r.n.. Will make refer to ortho for further evaluation Colon cancer screening 02/08/2021 Assessment & Plan (02/10/2021 8:36 AM [employer]ER): Patient past due for colon cancer screening [...] 03/20/2019 Assessment & Plan (03/20/2019 12:02 AM [employer]ER): MCV was a little low and she has noted increased ice eating. AVELINO-inhibitor cough 03/08/2019 Lung nodule 03/08/2019 Overview (02/08/2021): 03/2019 - LDCT -- benign changes. Repeat 03/202004/04/2020 LDCT -- benign changes. Repeat 04/2021 Assessment & Plan (02/08/2021 11:44 PM [employer] B[employer]ER): Next low-dose CT due after April 05, [address]. [address] order to be scheduled after April 05 Assessment & Plan (04/07/2020 7:57 PM [employer]ER): LDCT due for routine screeing. Will schedule. Assessment & Plan (03/19/2019 11:59 PM [employer]ER): Need to repeat LDCT from 08/2016 - [...] provided. Assessment & Plan (03/20/2019 12:00 AM [employer]ER): Obesity is unchanged. Discussed the patient's BMI. [...] of continued A1c control to minimize the rn long term care effects of diabetes. Bring accuchecks to office when instructed to do so. Check A1c about every 3-6 months. Take medication as prescribed. Get annual eye exam. Encouraged AVELINO/Statin if able to tolerate. Encouraged weight control and encouraged diabetic diet and exercise. Get labs updated Assessment & Plan (05/07/2024 9:35 PM CDT): Stressed importance of continued A1c control to minimize the rn long term care effects of diabetes. Bring accuchecks to [...] of continued A1c control to minimize the rn long term care effects of diabetes. Bring accuchecks to office when instructed to do so. Check A1c about every 3-6 months. Take medication as prescribed. Get annual eye exam. Encouraged AVELINO/Statin if able to tolerate. Encouraged weight control and encouraged diabetic diet and exercise. Continue metformin 1 g daily. A1c is at 7 Assessment & Plan (04/20/2023 2:17 PM [employer]ER): Stressed importance of continued A1c control to minimize the rn long term care effects of diabetes. Bring accuchecks to office when instructed to do so. Check A1c about every 3-6 months. Take medication as prescribed. Get annual eye exam. Encouraged AVELINO/Statin if able to tolerate. Encouraged weight control and encouraged diabetic diet and exercise. Continue metformin 1 g daily Assessment & Plan (12/19/2022 12:06 PM CDT): Stressed importance of continued A1c control to minimize the fci effects of diabetes. Bring accuchecks to office [...] of continued A1c control to minimize the fci effects of diabetes. Bring accuchecks to office when instructed to do so. Check A1c about every 3-6 months. Take medication as prescribed. Get annual eye exam. Encouraged AVELINO/Statin if able to tolerate. Encouraged weight control and encouraged diabetic diet and exercise. Continue metformin 1 g daily Assessment & Plan (02/15/2022 10:21 AM [employer] BENDER): Stressed importance of continued A1c control to minimize the rn long term care effects of diabetes. Bring accuchecks to [...] of continued A1c control to minimize the fci effects of diabetes. Bring accuchecks to office [...] point. Assessment & Plan (02/08/2021 11:37 PM [employer]ER): Stressed importance of continued A1c control to minimize the rn long term care effects of diabetes. Bring accuchecks to office when instructed to do so. Check A1c about every 3-6 months. Take medication as prescribed. Get annual eye exam. Encouraged AVELINO/Statin if able to tolerate. Encouraged weight control and encouraged diabetic diet and exercise. Continue metformin check labs Assessment & Plan (09/26/2020 7:18 PM CDT): Stressed importance of continued A1c control to minimize the fci effects of diabetes. Bring accuchecks to office when instructed to do so. Check A1c about every 3-6 months. Take medication as prescribed. Get annual eye exam. Encouraged AVELINO/Statin if able to tolerate. Encouraged weight control and encouraged diabetic diet and exercise. Continue metformin 1gm qd Assessment & Plan (04/07/2020 7:57 PM [employer] B[employer]ER): Stressed importance of continued A1c control to minimize the rn long term care effects of diabetes. Bring accuchecks to [...] of continued A1c control to minimize the fci effects of diabetes. Bring accuchecks to office when instructed to do so. Check A1c about every 3-6 months. Take medication as prescribed. Get annual eye exam. Encouraged AVELINO/Statin if able to tolerate. Encouraged weight control and encouraged diabetic diet and exercise. Assessment & Plan (03/20/2019 12:00 AM [employer] B[employer]ER): Stressed importance of continued A1c control to minimize the fci effects of diabetes. Bring accuchecks to office [...] of continued A1c control to minimize the rn long term care effects of diabetes. Bring accuchecks to [...] 20 Assessment & Plan (04/20/2023 2:15 PM [employer] B[employer]ER): Stressed importance of continued A1c control to minimize the fci effects of diabetes. Bring accuchecks to office [...] needed. Assessment & Plan (02/15/2022 10:21 AM [employer] B[employer]ER): Encouraged patient to follow low fat/low chol [...] simvastatin Assessment & Plan (02/08/2021 11:42 PM [employer]ER): Encouraged patient to follow fat/low chol diet like the Mediterranean diet. Increase good fats in the diet. Increase exercise. Monitor labs as needed. Continue simvastatin Assessment & Plan (09/26/2020 7:19 PM CDT): Encouraged patient to follow fat/low chol diet like the Mediterranean diet. Increase good fats in the diet. Increase exercise. Monitor labs as needed. Continue statin Assessment & Plan (04/07/2020 7:57 PM [employer] B[employer]ER): Encouraged patient to follow fat/low chol diet like the Mediterranean diet. Increase good fats in the diet. Increase exercise. Monitor labs as needed. Continue statin Assessment & Plan (10/29/2019 10:00 AM CDT): Encouraged patient to continue low fat/low chol diet. Continue exercise. Increase good fats in the diet. Monitor labs as needed. Continue statin Assessment & Plan (03/20/2019 12:00 AM [employer]ER): Encouraged patient to continue low fat/low chol [...] daily Assessment & Plan (02/15/2022 10:21 AM [employer]ER): Continue trazodone 50 Assessment & Plan (07/21/2021 10:44 AM CDT): Continue trazodone Assessment & Plan (02/08/2021 11:42 PM [employer]ER): Continue trazodone Assessment & Plan (09/26/2020 7:20 PM CDT): Continue Trazodone Assessment & Plan (04/07/2020 7:57 PM [employer]ER): Continue trazodone Assessment & Plan (10/29/2019 10:00 AM CDT): Stable with trazodone Assessment & Plan (03/20/2019 12:01 AM [employer]ER): Continue trazodone prn Assessment & Plan (08/27/2018 6:46 PM CDT): Stable with Trazodone Other fatigue 08/25/2018 Assessment & Plan (03/20/2019 12:01 AM [employer]ER): Probably multifactorial. Check labs and followup to [...] 05/07/2024 Assessment & Plan (02/29/2024 1:38 PM [employer] BENDER): Recommend fluids, rest, humidification if needed. She [...] 11/01/2023 Assessment & Plan (04/20/2023 2:17 PM [employer]ER): Encouraged healthy lifestyle, good nutrition and exercise. Encouraged Calcium and Vitamin D and weight bearing exercise for bone health. Reviewed immunizations. Reviewed age appropirate screenings. Medicare Wellness Documentation is completed within the chart Mass of skin of shoulder, right 04/20/2023 04/20/2023 Mass of skin of right shoulder 04/20/2023 05/07/2024 Assessment & Plan (04/20/2023 2:18 PM [employer]ER): This is a significant, separately identifiable problem [...] 01/14/20232023 Assessment & Plan (04/20/2023 2:17 PM [employer]ER): Discussed the patient's BMI. The BMI is above average. BMI management plan is completed. BMI Follow-up includes: nutrition counseling, exercise counseling and education provided. Assessment & Plan (01/14/2023 2:25 PM [employer] BENDER): Discussed the patient's BMI. The BMI is [...] provided. Assessment & Plan (04/20/2023 2:16 PM [employer] BENDER): Discussed the patient's BMI. The BMI is above average. BMI management plan is completed. BMI Follow-up includes: nutrition counseling, exercise counseling and education provided. Assessment & Plan (01/14/2023 2:24 PM [employer] BENDER): Discussed the patient's BMI. The BMI is [...] 06/28/2022 Assessment & Plan (02/15/2022 10:22 AM [employer] B[employer]ER): Encouraged healthy lifestyle, good nutrition and exercise. Encouraged Calcium and Vitamin D and weight bearing exercise for bone health. Reviewed immunizations. Reviewed age appropirate screenings. Medicare Wellness Documentation is completed within the chart Need for 23-polyvalent pneum ococcal polysaccharide vaccine 02/02/2022 06/28/2022 Assessment & Plan (02/15/2022 10:22 AM [employer]ER): Pneumonia 23 updated in the office today Fatigue 07/21/2021 05/07/2024 Assessment & Plan (11/01/2023 7:46 PM CDT): Probably multifactorial. Check labs and followup to re-evaluate Assessment & Plan (04/20/2023 2:17 PM [employer] BENDER): Probably multifactorial. Check labs and followup to re-evaluate Assessment & Plan (06/28/2022 10:23 AM CDT): Probably multifactorial. Check labs and followup to re-evaluate Assessment & Plan (07/21/2021 10:44 AM CDT): Probably multifactorial. Check labs and followup to re-evaluate Obesity (BMI 30-39.9) 07/02/20212022 Assessment & Plan (02/02/2022 9:57 AM [employer]ER): Discussed the patient's BMI. The BMI is [...] 06/11/19 Assessment & Plan (02/02/2022 9:58 AM [employer]ER): Discussed the patient's BMI. The BMI is [...] 05/07/2024 Assessment & Plan (01/14/2023 2:52 PM [employer]ER): Patient has had a cough for the [...] concerns. Assessment & Plan (03/27/2021 5:52 PM [employer] BENDER): Will send patient to [place] for Covid-19 testing. The patient was advised [...] 02/02/2022 Assessment & Plan (02/08/2021 11:44 PM [employer]ER): Encouraged healthy lifestyle, good nutrition and exercise. Encouraged Calcium and Vitamin D and weight bearing exercise for bone health. Reviewed immunizations. Reviewed age appropirate screenings. Medicare Wellness Documentation is completed within the chart Need for vaccination with 13 -polyvalent pneumococcal conjugate vaccine 02/08/2021 Assessment & Plan (02/08/2021 11:45 PM [employer]ER): Pneumonia 13 updated in the office today Obesity (BMI 30-39.9) 01/29/20212021 Assessment & Plan (01/29/2021 11:09 AM [employer]ER): Obesity is unchanged. Discussed the patient's BMI. The BMI is above average. BMI management plan is completed. BMI Follow-up includes: nutrition counseling, exercise counseling and education provided. BMI 31.0-31.9,adult 01/29/2021 07/03/19 22 Assessment & Plan (01/29/2021 11:09 AM [employer]ER): Obesity is unchanged. Discussed the patient's BMI. The BMI is above average. BMI management plan is completed. BMI Follow-up includes: nutrition counseling, exercise counseling and education provided. Acute pain of left shoulder 01/25/2021 02/08/2021 Assessment & Plan (01/25/2021 1:20 PM [employer]ER): Encouraged NSAIDS (if able to safely tolerate) [...] 09/27/19 Assessment & Plan (04/07/2020 8:01 PM [employer]ER): Obesity is unchanged. Discussed the patient's BMI. The BMI is above average. BMI management plan is completed. BMI Follow-up includes: nutrition counseling, exercise counseling and education provided. Obesity (BMI 30-39.9) 03/18/20202020 Assessment & Plan (03/18/2020 10:58 AM [employer]ER): Obesity is unchanged. Discussed the patient's BMI. [...] and triple antibiotic ointment. 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 Guy Assessment & Plan (03/20/2019 12:02 AM [employer]ER): Discussed options of repeat colonscopy vs Cologuard. Prefers cologuard Obesity (BMI 30-39.9) 08/25/20182020 Assessment & Plan (10/29/2019 9:59 AM CDT): Obesity is unchanged. Discussed the patient's BMI. The BMI is above average. BMI management plan is completed. BMI Follow-up includes: nutrition counseling, exercise counseling and education provided. Assessment & Plan (03/19/2019 11:59 PM [employer]ENDER): Obesity is unchanged. Discussed the patient's BMI. [...] Reviewed options for assistance with cessation. Reviewed fci sequela associated with smoking. Pt declines assistance at this time but may contact the office at anytime for further help as they desire. Assessment & Plan (08/04/2022 11:57 AM CDT): Encouraged smoking cessation. Discussed 3 minutes. Reviewed options for assistance with cessation. Reviewed rn long term care sequela associated with smoking. Pt declines assistance at this time but may contact the office at anytime for further help as they desire. Assessment & Plan (06/28/2022 10:23 AM CDT): Encouraged smoking cessation. Discussed 3 minutes. Reviewed options for assistance with cessation. Reviewed fci sequela associated with smoking. Pt declines assistance at this time but may contact the office at anytime for further help as they desire. Due for low-dose CT. Will place order Assessment & Plan (02/08/2021 11:42 PM [employer] BENDER): Encouraged smoking cessation. Discussed 3 minutes. Reviewed options for assistance with cessation. Reviewed rn long term care sequela associated with smoking. Pt declines assistance at this time but may contact the office at anytime for further help as they desire. Assessment & Plan (09/26/2020 7:20 PM CDT): Encouraged smoking cessation. Discussed 3 minutes. Reviewed options for assistance with cessation. Reviewed rn long term care sequela associated with smoking. Pt declines assistance at this time but may contact the office at anytime for further help as they desire. Assessment & Plan (04/07/2020 7:58 PM [employer] B[employer]ER): Encouraged smoking cessation. Discussed 3 minutes. Reviewed options for assistance with cessation. Reviewed fci sequela associated with smoking. Pt declines assistance at this time but may contact the office at anytime for further help as they desire. Assessment & Plan (10/29/2019 10:00 AM CDT): Encouraged smoking cessation. Discussed 3 minutes. Reviewed options for assistance with cessation. Reviewed fci sequela associated with smoking. Pt declines assistance at this time but may contact the office at anytime for further help as they desire. Assessment & Plan (03/20/2019 12:00 AM [employer] BENDER): Encouraged smoking cessation. Discussed 3 minutes. Reviewed options for assistance with cessation. Reviewed fci sequela associated with smoking. Pt declines assistance [...] 08/25/201803/02 Assessment & Plan (03/20/2019 12:00 AM [employer] BENDER): Mammogram order provided Assessment & Plan (08/27/2018 6:45 PM CDT): Mammogram order provided Encounters Date Type Department Care Team Description 12/13/2024 1:00 PM CDT Immunization [address] [place] [phone] Flu vaccine need (Primary Dx) 11/16/2024 Results Follow-Up [address] [place] [phone] Fátima Lott PA LUNG CANCER SCREENING 11/16/2024 Orders Only [address] [place] [phone] ProviderSnow MD 10/10/2024 10:15 AM CDT Anesthesia Event [facility] [address] [place] [id number] Terry Kerr MD Leavell, Michael E., MD 10/10/2024 9:30 AM CDT - 10/10/2024 10:00 AM CDT Surgery [facility] [address] [place] [id number] Hazel Baldwin MD COLON REMOVAL HOT BIOPSY 10/10/2024 8:15 AM CDT - 10/10/2024 11:57 AM CDT Hospital Encounter [facility] [address] [place] [phone] Hazel Baldwin MD History of colon polyps [...] on file Legal Sex Female 6:08 PM [employer] Gender Identity Female 11/19/2020 3:11 PM CDT [...] Menopause LIPID PANEL Routine 04/10/2024 9:48 AM [employer]ER Type 2 diabetes mellitus with hyperlipidemia (HCC) ALBUMIN CREATININE RATIO, URINE Routine 04/10/2024 9:48 AM [employer]ER Type 2 diabetes mellitus with hyperlipidemia (HCC) [...] 10:42 AM CDT Comment:Hot bx Narrative PATHOLOGY [facility] - 10/11/2024 3:33 PM CDT [facility] Department of Pathology [address] [place] [address] Note to Patients: This report may contain [...] : 1955 (Age: 68) Gender: F Address: [address] [place] [address] Hospital #: [id number] Service: Surgery Location: Patient Type: [facility] OUTPATIENT Taken: 10/10/2024 Received: 10/10/2024 Accessioned: 10/10/2024 [...] a microscopic examination of each tissue sample. [place] [id number] Distribution Clinical History: The patient is a [...] interpretation for this case was performed at [facility], Department of Surgical Pathology, [address] [facility] [place] [place] [id number], [place] [address] CLIA # [id number] us Hazel Baldwin MD LAB PATHOLOGY ORDERABLES Final R esult PATHOLOGY [facility] * Colonoscopy (10/10/2024 10:10 AM CDT) Anatomical Region Laterality Modality Other Narrative Procedure Note Hazel Baldwin MD - 10/10/2024 10:10 AM CDT [facility] GI ENDOSCOPY Patient Name: Flo Joshi Procedure Date: 10/10/2024 10:10 AM Date of : 1955 Admit Type: Outpatient Age: 68 Gender: Female Attending MD: Hazel Baldwin M.D., [id number] Room: [facility] ENDOSCOPY ROOM 05 Note Status: Finalized Procedure: [...] On: 10/10/2024 10:10 AM Recognized by the [employer] for promoting quality in endoscopy us Hazel Baldwin MD ENDOSCOPY PROCEDURES Final Resul t * POCT glucose (10/10/2024 9:13 AM CDT) Glucose, POC 135 70 - 199 mg/dL Glucose comment 1 RN/MD Notified PERRY Blood 10/10/2024 9:13 AM CDT 10/10/2024 9:13 AM CDT Hazel Baldwin MD LAB POCT ORDERABLES - DEVICE Fin al Result Performing Organization Address City/[facility]/ZIP Co de Phone Number PERRY [address] [facility] Department [place] [address] * (ABNORMAL) Hemoglobin A1c (09/13/2024 11:48 AM CDT) Pathologist [facility] Hgb A1C 7.2(H) <5.7 % of [...] BLOOD ORDERABLES Final Result Performing Organization Address City/[facility]/ZIP Co de Phone Number [facility] [address] [place] [address] * (ABNORMAL) Comprehensive metabolic panel (09/13/2024 11:48 AM CDT) Pathologist [facility] Glucose 111(H) 65 - 99 mg/dL [...] LAB BLOOD ORDERABLES Final Result [facility] [address] [place] [phone] * Screening Mammogram Bilateral [place] (08/30/2024) [...] N/A Radiographic Bettina ging 05/03/2024 Fátima TAYLOR [facility] DXA PROCEDURES Final R esult * Albumin Creatinine Ratio, Urine (04/10/2024 9:48 AM [employer]ER) Creatinine, ur 193 20 - 275 mg/dL [...] a diagnostic category. Urine 04/10/2024 9:48 AM [employer] TUBE BENDER 04/10/2024 9:49 AM [employer] TUBE BENDER Narrative [facility] - 04/11/2024 9:01 AM [employer] T[employer] BENDER FASTING:YES FASTING: YES us Fátima TAYLOR LAB URINE ORDERABLES Final Result [facility] [address] [address] [place] [phone] * (ABNORMAL) Lipid panel (04/10/2024 9:48 AM [employer]ER) Cholesterol 118 <200 mg/dL [facility] [...] LDL-C. Jerrell SS et al. KYLIE. 2013;310(19): 8777-6573 (http://education.Experticity/faq/XTG786) Chol/HDL ratio 2.0 <5.0 (calc) [facility] Non-HDL, (LDL+VLDL) 58 <130 mg/dL (calc) [facility] Comment: For patients with diabetes plus 1 major ASCVD risk factor, treating to a non-HDL-C goal of <100 mg/dL (LDL-C of <70 mg/dL) is considered a therapeutic option. Blood 04/10/2024 9:48 AM [facility] [employer] TUBE BENDER 04/10/2024 9:49 AM [employer] T[employer] Narrative [facility] - 04/11/2024 9:01 AM [employer] T[employer] FASTING:YES FASTING: YES Fátima TAYLOR LAB BLOOD ORDERABLES Final Result [facility] [address] [place] [address] * DIABETES EYE EXAM (07/28/2022) Historical Provider HEALTH MAINTENANCE Edited Result - Final from Last 3 Months or Most Recently Relevant to Health Maintenance Insurance [employer] MEDICARE [facility] [id number] [place] [address] MEDICARE [facility] [employer] MEDICARE [facility] Care Teams Adult And Pediatric Neurologist Relationship Specialty Start Date End Date Fátima Lott PA [address] [facility] [address] [place] [address] PCP - General Internal Medicine 06/29/18 Sukhdeep Sims MD [address] [facility] [address] [place] [address] Consulting Physician General Surgery 06/15/23
--- OUTSIDE RECORDS SUMMARY | 2025-01-09 12:21 | XMS_ITS | Encounter Summary ---
Author Organization [facility] Healthcare Address [address] [place] [address] Care Team Providers Care Photo Retoucher Name Role Phone Fátima Lott Primary Care Provider [phone] Sukhdeep Sims MD Unavailable [phone] Encounter Details Date Type Department Care Team (Late st Contact Info) Description 11/16/2024 Results Follow-Up [facility] Family Medicine [address] [place] [address] Fátima Lott PA [address] [facility] [address] [place] [address] LUNG CANCER SCREENING Social History [...] on file Legal 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 [address] [place] [address] Consulting Physician General Surgery 06/15/23 documented as of this encounter
--- NOTE | 2025-01-09 12:49 | ED.GENADULT ---
HPI - General Adult General Chief complaint: Extremity Problem,Nontraumatic Stated complaint: left knee pain Time Seen by Provider: 01/09/25 11:56 History of Present Illness HPI narrative: 69-year-old female presenting to the emergency department for evaluation for posterior left knee pain that is been ongoing for the last 3 days. Patient denies any specific incident of injury. Patient states that the pain has been increasing in the right knee. Patient states today she was walking and felt a click on the medial aspect of the left knee and had pain that radiated up from the left knee up. Patient denies any prior history of PE DVT. Patient was concerned about a DVT. Related Data Home Medications ?Medication ?Instructions ?Recorded ?Confirmed ?Last Taken ?Type metformin 1,000 mg tablet 1,000 mg PO DIRECTED 04/01/19 03/02/24 Unknown History trazodone 50 mg tablet 50 mg PO DAILY 04/01/19 03/02/24 Unknown History losartan 50 mg tablet 50 mg PO DAILY 07/27/22 03/02/24 Unknown History rosuvastatin 20 mg tablet 20 mg PO DAILY 07/27/22 03/02/24 Unknown History albuterol sulfate 90 mcg/actuation inhalation 03/02/24 Unknown History aerosol inhaler Allergies Allergy/AdvReac Type Severity Reaction Status Date / Time No Known Allergies Allergy Verified 01/09/25 11:22 Review of Systems Review of Systems: All systems reviewed & are unremarkable except as noted in HPI and below PMFSH Past Medical History Medical History HLD (hyperlipidemia) HTN (hypertension) Type 2 diabetes mellitus without complication Vitamin D deficiency Surgical History Surgical History History of cholecystectomy History of hysterectomy Family History Family History Mother Family history of diabetes mellitus in first degree relative Father Family history of diabetes mellitus in first degree relative Family history of coronary artery disease Social History Social History Smoking packs per day: 0.5 Smoking cigarettes per day: 10.0 Alcohol intake: never Substance use: never Living arrangements: with family Gender identity (if verbalized by the patient): Female Spiritual care concerns: No Exam Narrative: APPEARANCE: Well appearing, no pain, no distress, well-nourished. HEAD: normocephalic, atraumatic. EYES: PERRLA/EOMI, conjunctivae clear. NOSE: Normal no drainage EARS:TMS clear with good light reflex. THROAT: Pharynx clear, no exudate. NECK: Supple. No adenopathy, no masses. RESPIRATORY: Airway patent, respirations nonlabored. Clear to auscultation bilaterally, no rales, rhonchi, wheezing. CARDIOVASCULAR: Regular rate and rhythm without murmurs rubs or gallops. ABDOMINAL: Soft, nontender, nondistended, normal bowel sounds MUSCULOSKELETAL: Left-sided posterior near pain and tenderness with no deformity, mild medial tenderness. NEURO: Alert. Cranial nerves II through XII intact. Grossly intact SKIN: Warm, dry. Normal Color Course Vital Signs Vital signs: Vital Signs Temperature 98 F 01/09/25 11:19 Pulse Rate 112 H 01/09/25 11:19 Respiratory Rate 16 01/09/25 11:19 Blood Pressure 159/80 H 01/09/25 11:19 Pulse Oximetry 96 01/09/25 11:19 Oxygen Delivery Room Air 01/09/25 11:19 Temperature 98 F 01/09/25 11:19 Pulse Rate 72 01/09/25 15:03 Respiratory Rate 16 01/09/25 15:03 Blood Pressure 147/86 H 01/09/25 15:03 Pulse Oximetry 100 01/09/25 15:03 Oxygen Delivery Room Air 01/09/25 11:19 Medical Decision Making [facility] Narrative Medical decision making narrative: 69-year-old female presents to the emergency department for evaluation for left posterior knee pain. X-ray was negative for acute fracture dislocation and ultrasound was negative for DVT. Patient was provided knee immobilizer for comfort crutches for limited weight-bearing. Patient family updated on the results of the workup. All questions concerns were addressed. Patient was well-appearing at time of discharge. Patient is being provided outpatient follow-up with orthopedics for further evaluation of the knee potentially including outpatient MRI. Patient was updated on this plan. Differential Diagnosis Differential Diagnosis: Internal derangement of knee, arthritis, fracture, popliteal cyst, DVT Vital Signs Vital Signs: Vital Signs Temperature 98 F 01/09/25 11:19 Pulse Rate 112 H 01/09/25 11:19 Respiratory Rate 16 01/09/25 11:19 Blood Pressure 159/80 H 01/09/25 11:19 Pulse Oximetry 96 01/09/25 11:19 Oxygen Delivery Room Air 01/09/25 11:19 Temperature 98 F 01/09/25 11:19 Pulse Rate 72 01/09/25 15:03 Respiratory Rate 16 01/09/25 15:03 Blood Pressure 147/86 H 01/09/25 15:03 Pulse Oximetry 100 01/09/25 15:03 Oxygen Delivery Room Air 01/09/25 11:19 Imaging Data Attestation: I personally reviewed and interpreted this imaging study as follows: My impression: Knee x-ray: No acute fracture or dislocation Radiologist's impression: Impressions Knee X-Ray 01/09/25 12:53 Impression: No acute fracture or malalignment. Venous Doppler Study 01/09/25 13:41 Impression: Negative for DVT. Discharge Plan Discharge Clinical Impression: Acute internal derangement of left knee Patient Disposition: Home Condition: Stable Instructions: Antibiotic Form, Crutch Instructions (ED), Knee Pain (ED), Knee Immobilizer (ED) Additional Instructions: Knee immobilizer for comfort as directed. Crutches for limited weight-bearing. Have close follow-up with her primary care physician. Have close follow-up with Orthopedics. If you have any worsening symptoms then please call or return to the emergency department. Patient Language: Jamaican Prescriptions: No Action doxycycline monohydrate 100 mg tablet 100 mg PO BID Qty: 14 0RF albuterol sulfate 90 mcg/actuation HFA aerosol inhaler 2 puff inhalation QID PRN (Reason: shortness of breath or wheezing) Qty: 6.7 0RF prednisone 20 mg tablet 40 mg PO DAILY 5 Days Qty: 10 0RF trazodone 50 mg tablet 50 mg PO DAILY metformin 1,000 mg tablet 1,000 mg PO DIRECTED losartan 50 mg tablet 50 mg PO DAILY rosuvastatin 20 mg tablet 20 mg PO DAILY albuterol sulfate 90 mcg/actuation HFA aerosol inhaler INHALATION albuterol sulfate 90 mcg/actuation HFA aerosol inhaler 2 puff inhalation QID PRN (Reason: shortness of breath or wheezing) Qty: 6.7 0RF Follow-up/Referrals: Kaylie,CLAUDIA Shine [Primary Care Provider, Unknown] Je Kurtz MD [Physician, Orthopedics]
[2025-01-09 15:03] VITALS: BP 147/86; PULSE 72; RESP 16; O2SAT 100
== END 2025-01-09 15:05 | disposition home or self-care (01) ==
PROVIDERS: Emergency Provider Emergency Medicine; PCP Physician Assistant
DX: M23.92 Unspecified internal derangement of left knee (principal); M79.652 Pain in left thigh; E78.5 Hyperlipidemia, unspecified; I10 Essential (primary) hypertension; E11.9 Type 2 diabetes mellitus without complications; E55.9 Vitamin D deficiency, unspecified; F17.210 Nicotine dependence, cigarettes, uncomplicated; Z90.49 Acquired absence of other specified parts of digestive tract; Z90.710 Acquired absence of both cervix and uterus; Z79.84 Long term (current) use of oral hypoglycemic drugs; Z79.899 Other long term (current) drug therapy
CPT/HCPCS: 73562; 93971; 99284

== ENCOUNTER → 2025-02-12 15:05 | Outpatient (CLI) | payer MEDICARE, OTHER, SELFPAY ==
--- NOTE | ~2025-02-12 | XR_ITS ---
EXAMINATION: XR chest 2V, 02/12/2025 15:12 AREA MECHANIC HISTORY: COUGH COMPARISON: No comparisons available. Technique: 2 views obtained. Findings: The lungs are clear, no effusion. No pneumothorax. Heart is normal size. Mediastinal and hilar contours are within normal limits. Bony thorax no acute abnormality. Impression: No acute cardiopulmonary abnormality. Reviewed, dictated and finalized at location P. MECHANIC Impression: No acute cardiopulmonary abnormality.
== END ==
LOC: EXPCRAD 15:07
PROVIDERS: PCP Physician Assistant; Visit Provider Physician Assistant
DX: R05.1 Acute cough (principal)
CPT/HCPCS: 71046